=== PATIENT | female | born 1940 | race Caucasian/White ===

== ENCOUNTER 2022-10-26 15:15 | Emergency (ER) | payer MEDICARE, OTHER, SELFPAY ==
[2022-10-26 15:17] VITALS: BP 158/98; PULSE 63; RESP 18; TEMP 36.6; O2SAT 97; BMI 22.2
--- NOTE | 2022-10-26 15:41 | ECG_ITS ---
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
--- NOTE | 2022-10-26 15:42 | ED_ITS ---
HPI - General Adult General Chief complaint: Recheck/Abnormal Lab/Rx Stated complaint: Blood Pressure High Time Seen by Provider: 10/26/22 15:26 Source: patient Mode of arrival: walk-in Limitations: no limitations History of Present Illness HPI narrative: patient is an 82-year-old female who presents to the emergency department for the evaluation of elevated blood pressure readings at home. Patient denies any focal medical complaints, she does have minimal headache that she states she has daily which is not worse or different today. She states her blood pressure cuff read 200/100, she denies dizziness, chest pain, visual changes, shortness of breath. She states that she takes propranolol which is prescribed by her PCP and he recently told her to take the medication three times a day instead of twice although she states she does not like to take it three times a day because of the side effects of the beta megan. Related Data Home Medications Medication Instructions Recorded Confirmed clopidogrel 75 mg tablet 75 mg PO DAILY 10/26/22 10/26/22 dicyclomine 10 mg capsule 10 mg PO .every 4 hours 10/26/22 10/26/22 fexofenadine 180 mg tablet 180 mg PO Q24H 10/26/22 10/26/22 irbesartan 150 mg tablet 150 mg PO DAILY 10/26/22 10/26/22 meloxicam 15 mg tablet 15 mg PO DAILY 10/26/22 10/26/22 pregabalin 50 mg capsule mg 10/26/22 propranolol 60 mg capsule,24 60 mg PO Q24H 10/26/22 10/26/22 hr,extended release rosuvastatin 5 mg tablet 5 mg PO DAILY 10/26/22 10/26/22 Previous Rx's Medication Instructions Recorded amlodipine 10 mg tablet (Norvasc) 10 mg PO DAILY #14 tabs 10/26/22 Allergies Allergy/AdvReac Type Severity Reaction Status Date / Time Penicillins Allergy Intermediate Verified 10/26/22 15:28 Review of Systems ROS Constitutional Denies: fever or chills Ears, nose, mouth, and throat Denies: throat pain Cardiovascular Denies: chest pain Respiratory Denies: shortness of breath Gastrointestinal Denies: nausea or vomiting Genitourinary Denies: painful urination Musculoskeletal Denies: back pain Integumentary/Breast Denies: rash Neurological Reports: headache Exam Narrative Exam Narrative: Gen.: Awake, alert, in no distress Head: Normocephalic, atraumatic ENT: Moist mucous membranes Respiratory: No respiratory distress, lungs clear bilaterally Cardio: Regular rate and rhythm Extremities: Moves extremities equally, no pedal edema Psych: Normal mood and affect Neuro: No focal neuro deficit Skin: Warm, dry, intact Constitutional Vital Signs, click to edit/add: Last Vital Signs Temp 98 F 10/26/22 15:17 Pulse 63 10/26/22 15:17 Resp 18 10/26/22 15:17 BP 158/98 H 10/26/22 15:17 Pulse Ox 97 10/26/22 15:17 O2 Del Method Room Air 10/26/22 15:17 Course Vital Signs Vital signs: Vital Signs Temperature 98 F 10/26/22 15:17 Pulse Rate 63 10/26/22 15:17 Respiratory Rate 18 10/26/22 15:17 Blood Pressure 158/98 H 10/26/22 15:17 Pulse Oximetry 97 10/26/22 15:17 Oxygen Delivery Method Room Air 10/26/22 15:17 Temperature 98 F 10/26/22 15:17 Pulse Rate 63 10/26/22 15:17 Respiratory Rate 18 10/26/22 15:17 Blood Pressure 158/98 H 10/26/22 15:17 Pulse Oximetry 97 10/26/22 15:17 Oxygen Delivery Method Room Air 10/26/22 15:17 Medical Decision Making MDM Narrative Medical decision making narrative: EKG, lab studies within normal limits. Manual blood pressure is 158/97 initially and 172/84 on recheck. Patient with no focal medical complaints, I did discuss the case with Dr. kyle, the patient's PCP who recommended taking the propranolol twice a day with the addition of 10 mg Norvasc. Follow-up in the office for reevaluation and return to the Emergency Room if symptoms change or worsen. Medical Records Medical records reviewed: Yes I reviewed the patient's medical records Lab Data Lab results reviewed: Yes I reviewed the patient's lab results Labs: Lab Results 10/26/22 Range/Units 16:00 WBC 6.6 (4.0-11.0) 10^3/uL RBC 4.56 (4.20-5.40) 10^6/uL Hgb 12.6 (12.0-16.0) g/dL Hct 39.9 (36.0-48.0) % MCV 87.5 (81.0-99.0) fL MCH 27.6 (26.7-34.0) pg MCHC 31.6 (29.9-35.2) g/dL RDW 14.6 (11.0-15.0) % Plt Count 348 (150-450) 10^3/uL MPV 10.5 (9.5-13.5) fL Neut % (Auto) 58.8 (43.0-75.0) % Lymph % (Auto) 22.5 (20.5-60.0) % [place] % (Auto) 14.4 H (1.7-12.0) % Eos % (Auto) 3.3 (0.9-7.0) % Baso % (Auto) 0.8 (0.2-2.0) % Neut # (Auto) 3.9 (1.4-6.5) 10^3/uL Lymph # (Auto) 1.5 (1.2-3.8) 10^3/uL [place] # (Auto) 1.0 H (0.3-0.8) 10^3/uL Eos # (Auto) 0.2 (0.0-0.7) 10^3/uL Baso # (Auto) 0.1 (0.0-0.1) 10^3/uL Abs Immat Gran (auto) 0.01 (0.00-0.03) 10^3/uL Imm/Tot Granulo (auto) 0.2 (0.0-0.5) % Sodium 135 L (136-145) mmol/L Potassium 4.3 (3.5-5.1) mmol/L Chloride 101 (98-107) mmol/L Carbon Dioxide 28.1 (21.0-32.0) mmol/L Anion Gap 10.2 BUN 9.0 (7.0-18.0) mg/dL Creatinine 0.92 (0.55-1.02) mg/dL Est GFR ( Amer) >60 (>=60) Est GFR (Non-Af Amer) 59 L (>=60) BUN/Creatinine Ratio 9.8 Glucose 99 (74-106) mg/dL Calcium 9.2 (8.5-10.1) mg/dL ECG Data Attestation: I personally reviewed and interpreted this ECG as follows: (normal sinus rhythm at a rate of fifty-six, incomplete right bundle-branch block with no acute ST elevation or ectopy. EKG reviewed by attending physician) Discharge Plan Discharge Chief Complaint: Recheck/Abnormal Lab/Rx Clinical Impression: Hypertension Patient Disposition: Home, Self-Care Time of Disposition Decision: 16:32 Condition: Good Prescriptions / Home Meds: New amlodipine [Norvasc] 10 mg tablet 10 mg PO DAILY Qty: 14 0RF No Action clopidogrel 75 mg tablet 75 mg PO DAILY dicyclomine 10 mg capsule 10 mg PO .every 4 hours fexofenadine 180 mg tablet 180 mg PO Q24H irbesartan 150 mg tablet 150 mg PO DAILY meloxicam 15 mg tablet 15 mg PO DAILY pregabalin 50 mg capsule propranolol 60 mg capsule,extended release 24 hr 60 mg PO Q24H rosuvastatin 5 mg tablet 5 mg PO DAILY Instructions: How to Take a Blood Pressure Reading (ED), Hypertension (ED) Additional Instructions: Take your propranolol twice a day, take norvasc once a day Stand Alone Forms: Portal Instructions Referrals: LICHA KYLE [Primary Care Provider] - 1 week
[2022-10-26 16:25] LABS: Basophils Absolute Auto 0.1 10^3/uL (0.0-0.1); Basophils Percent Auto 0.8 % (0.2-2.0); Eosinophils Absolute Auto 0.2 10^3/uL (0.0-0.7); Eosinophils Percent Auto 3.3 % (0.9-7.0); Hematocrit 39.9 % (36.0-48.0); Hemoglobin 12.6 g/dL (12.0-16.0); Immature Granulocytes Abs Auto 0.01 10^3/uL (0.00-0.03); Immature Granulocytes Pct Auto 0.2 % (0.0-0.5); Lymphocytes Absolute Auto 1.5 10^3/uL (1.2-3.8); Lymphocytes Percent Auto 22.5 % (20.5-60.0); Mean Corpuscular HGB Conc 31.6 g/dL (29.9-35.2); Mean Corpuscular Hemoglobin 27.6 pg (26.7-34.0); Mean Corpuscular Volume 87.5 fL (81.0-99.0); Mean Platelet Volume 10.5 fL (9.5-13.5); Monocytes Percent Auto 14.4 % (1.7-12.0); Neutrophils Absolute Auto 3.9 10^3/uL (1.4-6.5); Neutrophils Percent Auto 58.8 % (43.0-75.0); Platelet Count 348 10^3/uL (150-450); Red Blood Count 4.56 10^6/uL (4.20-5.40); Red Cell Distribution Width 14.6 % (11.0-15.0); White Blood Count 6.6 10^3/uL (4.0-11.0)
[2022-10-26 16:29] LABS: Anion Gap 10.2; BUN Creatinine Ratio 9.8; Calcium 9.2 mg/dL (8.5-10.1); Carbon Dioxide 28.1 mmol/L (21.0-32.0); Chloride 101 mmol/L (98-107); Estimated GFR (African America >60 (>=60); Estimated GFR (Non-African Ame 59 (>=60); Glucose 99 mg/dL (74-106); Potassium 4.3 mmol/L (3.5-5.1); Sodium 135 mmol/L (136-145)
[2022-10-26 16:39] VITALS: BP 172/84
== END 2022-10-26 16:49 | disposition home or self-care (01) ==
PROVIDERS: Physician Assistant; Emergency Provider Emergency Medicine; PCP Family Medicine
DX: I10 Essential (primary) hypertension (principal); Z79.899 Other long term (current) drug therapy
CPT/HCPCS: 36415; 80048; 85025; 93005; 99284

== ENCOUNTER 2023-03-12 12:46 | Outpatient (OUT) | payer MEDICARE, OTHER, SELFPAY ==
[2023-03-12 13:43] LABS: Alanine Aminotransferase 15 U/L (14-59); Albumin Globulin Ratio 0.9; Albumin Level 3.7 g/dL (3.4-5.0); Alkaline Phosphatase 78 U/L (46-116); Anion Gap 12.5; Aspartate Amino Transferase 13 U/L (15-37); BUN Creatinine Ratio 9.5; Bilirubin Total 0.4 mg/dL (0.2-1.0); Calcium 8.8 mg/dL (8.5-10.1); Carbon Dioxide 29.5 mmol/L (21.0-32.0); Chloride 101 mmol/L (98-107); Estimated GFR (African America >60 (>=60); Estimated GFR (Non-African Ame >60 (>=60); Globulin 3.9 g/dL; Glucose 91 mg/dL (74-106); Sodium 139 mmol/L (136-145); Total Protein 7.6 g/dL (6.4-8.2)
[2023-03-12 13:45] LABS: Basophils Absolute Auto 0.1 10^3/uL (0.0-0.1); Basophils Percent Auto 0.9 % (0.2-2.0); Eosinophils Absolute Auto 0.2 10^3/uL (0.0-0.7); Eosinophils Percent Auto 1.7 % (0.9-7.0); Hematocrit 39.9 % (36.0-48.0); Hemoglobin 12.5 g/dL (12.0-16.0); Immature Granulocytes Abs Auto 0.02 10^3/uL (0.00-0.03); Immature Granulocytes Pct Auto 0.2 % (0.0-0.5); Lymphocytes Absolute Auto 2.2 10^3/uL (1.2-3.8); Lymphocytes Percent Auto 24.8 % (20.5-60.0); Mean Corpuscular HGB Conc 31.3 g/dL (29.9-35.2); Mean Corpuscular Volume 89.3 fL (81.0-99.0); Mean Platelet Volume 10.5 fL (9.5-13.5); Monocytes Absolute Auto 1.1 10^3/uL (0.3-0.8); Monocytes Percent Auto 12.2 % (1.7-12.0); Neutrophils Absolute Auto 5.4 10^3/uL (1.4-6.5); Neutrophils Percent Auto 60.2 % (43.0-75.0); Platelet Count 375 10^3/uL (150-450); Red Blood Count 4.47 10^6/uL (4.20-5.40); Red Cell Distribution Width 15.9 % (11.0-15.0)
== END 2023-03-12 12:47 | disposition home or self-care (01) ==
LOC: LAB 12:48
PROVIDERS: PCP Family Medicine; Visit Provider Internal Medicine
DX: D50.9 Iron deficiency anemia, unspecified (principal)
CPT/HCPCS: 36415; 80053; 85025

== ENCOUNTER 2023-04-17 08:42 | Outpatient (OUT) | payer MEDICARE, OTHER, SELFPAY ==
--- NOTE | 2023-04-17 | ECG_ITS ---
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
--- NOTE | 2023-04-17 08:44 | XR_ITS ---
The [address] [address] Patient Name: RANJAN LAMB MRN: [id number] date: 1940 Sex: F Assigned Patient Location: CARD Current Patient Location: CARD Accession/Order Number: [id number] Exam Date: 04/17/2023 08:51 Report Date: 04/17/2023 09:05 At the request of: NON-STAFF PHYSICIAN Procedure: XR chest 2V EXAM: XR chest 2V HISTORY: r53.83 preoperative COMPARISON: Chest study dated 09/07/2020 TECHNIQUE: PA and lateral views of the chest were obtained. FINDINGS: Heart and mediastinal contours are unremarkable in appearance. No acute infiltrate or consolidations are seen. No obvious pneumothorax. Bony structures appear grossly intact. XR/XR chest 2V IMPRESSION: No acute process seen in the chest. Electronically authenticated by: GONZALEZ GARRIDO Date: 04/17/2023 09:05
--- OUTSIDE RECORDS SUMMARY | 2023-04-17 08:54 | XMS_ITS | CCD ---
Author Name Unknown Address [address] [place] [address] Organization [facility] Care Team Providers Care Diamond Polisher Name Role Phone El Au Unavailable [phone] DO Brad Dean Primary Care Provider MD El Au Attending Provider ROE, DR Niya Dobbins Attending Unavailable ROE, DR Niya Dobbins Consulting Unavailable ROE, DR Niya Dobbins Admitting Unavailable DIANNE, DR HURT Primary Care Unavailable DIANNE, DR HURT Primary Care Unavailable BECKY, DR KAISER Attending Unavailable BECKY, DR KAISER Consulting Unavailable BECKY, DR KAISER Admitting Unavailable ZIEBER, DR JULIA Dobbins Consulting Unavailable Vale Red Unavailable BRAD DEAN Primary Care Unavailable Johan Romo MD Attending Unavailable Johan Romo MD Attending Unavailable BRAD DEAN Primary Care Unavailable BRAD DEAN Primary Care Unavailable Johan Romo MD Attending Unavailable BRAD DEAN Primary Care Unavailable Johan Romo MD Attending Unavailable Allergies Allergy Classification Reported Allergen(s) Allergy Type Date of Onset Reaction(s) Facility (8 sources) Iodine Drug Allergy 9 [facility] (7 sources) Pen[facility] Other (2 sources) Penicillins; Translations: [Penicillins] Allergy to substance 5 [facility] (1 source) Povidone-Iodine Drug Allergy 9 [facility] (1 source) soap Allergy to substance 9 [facility] (2 sources) Povidone-Iodine; Translations: [Betadine] Drug Allergy 5 [facility] (1 source) Penicillin; Translations: [penicillin] Drug Allergy [facility] Repository Medications Current Medications Medication Drug Class(es) Dates Sig (Normalized) Sig (Original) amLODIPine 10 mg oral tablet (1 source) Dihydropyridine Calcium Channel Arnol take 1 tablet by mouth every twenty-four hours amLODIPine Besylate 10 MG 1 tablet Orally Once a day Active Ascorbic Acid (7 sources) Vitamin C Vitamin C Active aspirin 81 mg chewable tablet (8 sources) Platelet Aggregation Inhibitor, Nonsteroidal Anti-inflammatory Drug Start: 09-03-2018 take 81 mg by mouth once daily Aspirin Active 81 MG PO Daily September 03, 2018 12:00am take 1 tablet by mouth once fan y Aspirin EC 81 MG 1 tablet Orally Once a day Not-Taking take 1 tablet by franco th every twenty-four hours Aspirin EC 81 MG 1 tablet Orally Once a day Active Aspirin 81 Activ e benzonatate 200 mg oral capsule (2 sources) Non-narcotic Antitussive Start: 11-13-2022 take 1 capsule by mouth three times daily as needed for cough Benzonatate 200 MG 1 capsule Orally Three times a day prn cough for 10 days Oct, Active cholecalciferol 0.025 mg oral tablet (1 source) Vitamin D Start: 09-03-2018 take 1 tablet by mouth once daily Cholecalciferol (Vitamin D3) (Vitamin D3) 1,000 unit Tablet Active 1000 UNIT PO Daily September 03, 2018 12:00am clopidogrel 75 mg oral tablet (7 sources) P2Y12 Platelet Inhibitor take 1 tablet by mouth every twenty-four hours Clopidogrel Bisulfate 75 MG 1 tablet Orally Once a day Active dicyclomine hydrochloride 10 mg oral capsule (7 sources) Anticholinergic Start: 09-08-2020 take 1 capsule by mouth every six hours Dicyclomine HCl 10 MG 1 capsules Orally qid for 30 day(s) August, Active doxycycline hyclate 100 mg oral capsule (2 sources) Tetracycline-class Drug Start: 11-13-2022 take 1 capsule by mouth every twelve hours Doxycycline Hyclate 100 MG 1 capsule Orally Twice a day for 7 days Oct, Active ferrous sulfate 325 mg oral tablet (6 sources) take 1 tablet by mouth every week Iron 325 (65 Fe) MG 1 tablet Orally weekly Active folic acid 0.4 mg / vitamin b12 0.5 mg oral tablet (1 source) Vitamin B12 Start: 09-03-2018 take 1 tablet by mouth once daily Vitamin E48-Xgesl Acid Active 1 TAB PO Daily September 03, 2018 12:00am hydrOXYzine hydrochloride 25 mg oral tablet (9 sources) Antihistamine Start: 09-03-2018 take 0.5 tablet by mouth once daily Hydroxyzine Hcl Active 0.5 TAB PO Daily September 03, 2018 12:00am Start: 09-03-2018 take 25 mg by mouth once daily Hydroxyzine Hcl Active 25 MG PO Daily September 03, 2018 12:00am take 1 tablet by franco th every eight hours hydrOXYzine HCl 25 MG 1 tablet as needed Orally every 8 hrs for 30 day(s) Active irbesartan 150 mg oral tablet (7 sources) Angiotensin 2 Receptor Ranol take 1 tablet by mouth every twenty-four hours Avapro 150 MG 1 tablet Orally Once a day Active Iron (1 source) Iron Active lactulose 667 mg/ml oral solution (1 source) Osmotic Laxative Start: 06-17-19 22 take 15 mL by mouth once daily Lactulose 10 GM/15ML 15 ml Orally Once a day for 30 day(s) Jun, Active lisinopril 5 mg oral tablet (1 source) Angiotensin Converting Enzyme Inhibitor Start: 11-27-19 19 take 10 mg by mouth once daily Lisinopril Active 10 MG PO Daily November 26, 2018 12:00am pregabalin 150 mg oral capsule (1 source) take 1 capsule by mouth every twenty-four hours Pregabalin 150 MG 1 capsule Orally Once a day for 30 Active Probiotic (3 sources) Probiotic as directed Active 24 hr propranolol hydrochloride 60 mg extended release oral capsule (8 sources) beta-Adrenergic Arnol Start: 09-04-19 19 take 60 mg by mouth once daily Propranolol Active 60 MG PO Daily September 03, 2018 12:00am take 1 tablet by franco th every twenty-four hours Propranolol HCl 60 MG 1 tablet on an empty stomach Orally Once a day for 30 day(s) Active rosuvastatin calcium 5 mg oral tablet (8 sources) HMG-CoA Reductase Inhibitor Start: 09-03-2018 take 5 mg by mouth once daily Rosuvastatin Active 5 MG PO Daily September 03, 2018 12:00am Vitamin B 12 250 MCG (7 sources) Vitamin B 12 250 MCG as directed Orally Active Vitamin D3 1000 UNIT (7 sources) take 1 tablet by mouth once daily Vitamin D3 1000 UNIT 1 tablet Orally Once a day for 30 day(s) Active Problems Active Problems Problem Classification Problem Date Documented Da te Episodic/Chronic Abdominal hernia (7 sources) Hiatal hernia; Translations: [Diaphragmatic hernia without obstruction or gangrene] Episodic Abdominal pain (8 sources) Unspecified abdominal pain; Translations: [Abdominal pain] Onset: 2 Resolved: 2 Episodic Cardiac and circulatory congenital anomalies (7 sources) 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; Translations: [Arteriovenous malformation of digestive system vessel] Chronic Deficiency and other anemia (7 sources) Iron deficiency anemia; Translations: [Iron deficiency anemia, unspecified] Episodic Deficiency and other anemia (9 sources) Iron deficiency anemia, unspecified; Translations: [IRON DEFICIENCY ANEMIA UNSPECIFIED] Onset: 2 Resolved: 2 Episodic Diverticulosis and diverticulitis (7 sources) Diverticular disease of colon; Translations: [Diverticulosis of intestine, part unspecified, without perforation or abscess without bleeding] Chronic Hemorrhoids (7 sources) Hemorrhoids; Translations: [Unspecified hemorrhoids] Episodic Nausea and vomiting (7 sources) Nausea and vomiting; Translations: [Nausea with vomiting, unspecified] Episodic Other disorders of stomach and duodenum (8 sources) Angiodysplasia of stomach; Translations: [Angiodysplasia of stomach and duodenum with bleeding] 12-03-2018 Episodic Other gastrointestinal disorders (7 sources) Constipation alternates with diarrhea; Translations: [Other specified symptoms and signs involving the digestive system and abdomen] Episodic Other gastrointestinal disorders (7 sources) Constipation; Translations: [Constipation, unspecified] Episodic Other gastrointestinal disorders (4 sources) Constipation, unspecified Onset: 2 Resolved: 2 Episodic Other lower respiratory disease (1 source) Unspecified acute lower respiratory infection Episodic Peripheral and visceral atherosclerosis (5 sources) 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, bilateral legs; Translations: [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, unspecified extremity] Onset: 2 Chronic Residual codes; unclassified (7 sources) Body mass index 20-24 - normal; Translations: [Body mass index (BMI) 21.0-21.9, adult] Episodic Past or Other Problems Problem Classification Problem Date Documented Da te Episodic/Chronic Unclassified (1 source) Suspected COVID-19 virus infection Z20.822 Results Test Name Value Interpretation Reference Range Facility Outside Recordson 12-05-2022 Outside Records [id number] [facility] Patient Handout [id number] 4#1.00OTGTIFF [facility] Patient Handout [id number] 4#1.00OTGTIFF [facility] COVID Quick Testingon 2022 Result Negative [employer] Other CBC AUTO DIFFon 05-09-2022 BASO # 0.1 103/ul Normal 0.0-0.1 [facility] Comment on above: Performed By: #### C BC #### [facility] [address] [place] [address] Dr. Sadaf Canela Basophils/100 WBC (Bld) 0.8 % Normal 0.2-2.0 [facility] Comment on above: Performed By: #### C BC #### [facility] [address] [place] [address] Dr. Sadaf Canela EO # 0.2 103/ul Normal 0.0-0.7 [facility] Comment on above: Performed By: #### C BC #### [facility] [address] [place] [address] Dr. Sadaf Canela Eosinophils/100 WBC (Bld) 2.1 % Normal 0.9-7.0 [facility] Comment on above: Performed By: #### C BC #### [facility] [address] [place] [address] Dr. Sadaf Canela Erythrocyte distribution width (RBC) [Ratio] 14.6 % Normal 11.0-15.0 [facility] Comment on above: Performed By: #### C BC #### [facility] [address] [place] [address] Dr. Sadaf Canela Hematocrit (Bld) [Volume fraction] 40.4 % Normal 36.0-48.0 [facility] Comment on above: Performed By: #### C BC #### [facility] [address] [place] [address] Dr. Sadaf Canela Hemoglobin (Bld) [Mass/Vol] 12.6 g/dL Normal 12.0-16.0 [facility] Comment on above: Performed By: #### C BC #### [facility] [address] [place] [address] Dr. Sadaf Canela IG # 0.01 10e3/ul Normal 0.00-0.03 [facility] Comment on above: Performed By: #### C BC #### [facility] [address] [place] [address] Dr. Sadaf Canela IG % 0.1 % Normal 0.0-0.5 [facility] Comment on above: Performed By: #### C BC #### [facility] [address] [place] [address] Dr. Sadaf Canela LYMPH # 1.6 103/ul Normal 1.2-3.8 [facility] Comment on above: Performed By: #### C BC #### [facility] [address] [place] [address] Dr. Sadaf Canela Lymphocytes/100 WBC (Bld) 22.2 % Normal 20.5-60.0 [facility] Comment on above: Performed By: #### C BC #### [facility] [address] [place] [address] Dr. Sadaf Canela MANUAL DIFF REQ NO Normal [facility] Comment on above: Performed By: #### C BC #### [facility] [address] [place] [address] Dr. Sadaf Canela MCH (RBC) [Entitic mass] 27.6 pg Normal 26.7-34.0 [facility] Comment on above: Performed By: #### C BC #### [facility] [address] [place] [address] Dr. Sadaf Canela MCHC (RBC) [Mass/Vol] 31.2 g/dL Normal 29.9-35.2 [facility] Comment on above: Performed By: #### C BC #### [facility] [address] [address] [address] Sadaf Canela MCV (RBC) [Entitic vol] 88.4 fL Normal 81.0-99.0 [facility] Comment on above: Performed By: #### C BC #### [facility] [address] [address] [address] Sadaf Canela MONO # 0.9 103/ul Critically high 0.3-0.8 [facility] Comment on above: Performed By: #### C BC #### [facility] [address] [address] [address] Sadaf Canela Monocytes/100 WBC (Bld) 12.4 % Critically high 1.7-12.0 [facility] Comment on above: Performed By: #### C BC #### [facility] [address] [place] [address] Dr. Sadaf Canela NEUT # 4.5 103/ul Normal 1.4-6.5 [facility] Comment on above: Performed By: #### C BC #### [facility] [address] [place] [address] Dr. Sadaf Canela Neutrophils/100 WBC (Bld) 62.4 % Normal 43.0-75.0 [facility] Comment on above: Performed By: #### C BC #### [facility] [address] [place] [address] Dr. Sadaf Canela Platelet mean volume (Bld) [Entitic vol] 10.2 fL Normal 9.5-13.5 [facility] Comment on above: Performed By: #### C BC #### [facility] [address] [place] [address] Dr. Sadaf Canela PLT 351 103/ul Normal 150-450 [facility] Comment on above: Performed By: #### C BC #### [facility] [address] [place] [address] Dr. Sadaf Canela RBC 4.57 106/ul Normal 4.20-5.40 [facility] Comment on above: Performed By: #### C BC #### [facility] [address] [address] [address] Sadaf Canela WBC 7.2 103/ul Normal 4.0-11.0 [facility] Comment on above: Performed By: #### C BC #### [facility] [address] [address] [address] Sadaf Canela FERRITINon 05-09-2022 Ferritin [Mass/Vol] 19.0 ng/mL Normal 8.0-252.0 [facility] Comment on above: Performed By: #### F ERR #### [facility] [address] [address] [address] Sadaf Canela Blood hemoglobin measurement (mass/volume)Ordered By: El Au on 12-20-2021 Hemoglobin (Bld) [Mass/Vol] 13.4 g/dL 11.8-15.4 [facility] Hematocrit Auto (Bld) [Volum e fraction]Ordered By: El Au on 12-20-2021 Hematocrit (Bld) [Volume fraction] 41.1 % 34.0-46.4 [facility] Hemoglobin and Hematocriton 12-20-2021 Hematocrit (Bld) [Volume fraction] 41.1 % Normal 34.0-46.4 [facility] Comment on above: Order Comment: Reaso n for Exam Iron deficiency anemia Result Comment: PERF ORMED BY: [place] [address] PATHOLOGIST MULTICULTURAL MANAGER HOLLIE BONNER M.D. Performed By: #### H H #### [facility] [address] [place] [address] Hemoglobin (Bld) [Mass/Vol] 13.4 g/dL Normal 11.8-15.4 [facility] Comment on above: Order Comment: Reaso n for Exam Iron deficiency anemia Performed By: #### H H #### [facility] [address] [place], [place] [id number] [facility] Hematocrit (Bld) [Volume fraction] 41.100 % Normal 34.0-46.4 % [employer] Other Hemoglobin (Bld) [Mass/Vol] 13.574392 g/dL Normal 11.8-15.4 g/dL [employer] Other CREATININEon 08-30-2021 Creatinine [Mass/Vol] 0.82 mg/dL Normal 0.55-1.02 [facility] Comment on above: Performed By: #### C HANNAH #### [facility] [address] [address] [address] Sadaf Canela EGFR-AF ARMENIAN >60 Normal >=60 [facility] Comment on above: Performed By: #### C HANNAH #### [facility] [address] [address] [address] Sadaf Canela EGFR-NON AF ARMENIAN >60 Normal >=60 [facility] Comment on above: Performed By: #### C HANNAH #### [facility] [address] [place] [address] Dr. Sadaf Canela CTA ABD MALENA WWO CON LE RUNO FFon 08-30-2021 CTA ABD MALENA WWO CON LE RUNOFF EXAMINATION: CTA ABD MALENA WWO CON LE RUNOFF HISTORY: Intermittent claudication of bilateral lower limbs co-occurrent and due to atherosclerosis; painful, cold legs COMPARISON: CT abdomen pelvis with contrast 09/07/2020 TECHNIQUE: After obtaining the patient's consent, CT images of the abdomen, pelvis, and lower extremities were obtained without and with non-ionic intravenous contrast material. Multi-planar reformatted/3-D images were created to optimize visualization of vascular anatomy. Dose reduction techniques were achieved by using automated exposure control and/or adjustment of mA and/or kV according to patient size and/or use of iterative reconstruction technique. FINDINGS: AORTA: Moderate atherosclerotic disease of the distal aorta without significant narrowing. No aneurysm or dissection. Mild atherosclerotic narrowing of celiac axis and superior mesenteric arteries at their origins. Right renal artery mild atherosclerotic narrowing. Left renal artery marked narrowing, possibly cause of renal atrophy. ILIAC: Moderate atherosclerotic disease of common iliac arteries bilaterally. No aneurysm or dissection. RIGHT LEG: Mild luminal narrowing and multifocal mild atherosclerotic disease. No significant stenosis or occlusion. LEFT LEG: Widely patent endovascular stent from mid femoral to popliteal artery. Overall mild narrowing of the vessels and scattered mild atherosclerotic disease. No significant stenosis or occlusion. LUNG BASES: No visible pulmonary or pleural disease. LIVER: No enlargement, atrophy, abnormal density, or significant focal lesion. BILIARY: A few tiny granular calcifications within noninflamed gallbladder. PANCREAS: No lesion, fluid collection, ductal dilatation. SPLEEN: No enlargement or focal lesion. ADRENALS: No mass or enlargement. KIDNEYS: Left renal atrophy with marked cortical thinning. Unremarkable right kidney and bilateral ureters. BOWEL/MESENTERY: Large hiatal hernia. Diverticulosis of distal: Without acute inflammatory changes. No visible mass, obstruction, or bowel wall thickening. RETROPERITONEUM: No mass or adenopathy. ABDOMINAL WALL: No mass or hernia. URINARY BLADDER: No visible focal wall thickening, lesion, or calculus. PELVIC NODES: No adenopathy. PELVIC ORGANS: Hysterectomy. BONES: Stable mild-moderate compression fracture of L2 which appears to be chronic. OTHER: IMPRESSION: 1. Moderate atherosclerotic disease of the distal aorta and common iliac arteries with overall mild narrowing, but no marked stenosis. 2. Mild dorsal narrowing throughout the lower extremities, but only mild atherosclerotic disease. 3. Widely patent endovascular stent within left leg stenting from mid femoral artery to popliteal artery. 4. No occlusion or appreciable area of marked stenosis. Electronically authenticated by: JULIA ECHEVARRIA Date: 2021-08-30 15:07 Normal [facility] Complete Blood Count Auto Di ffon 06-16-2021 Basophils (Bld) [#/Vol] 0.1 10*3/uL Normal 0.0-0.2 [employer] Other Comment on above: Order Comment: Reaso n for Exam Iron deficiency anemia Result Comment: PERF ORMED BY: [place] [address] PATHOLOGIST MULTICULTURAL MANAGER HOLLIE BONNER M.D. Performed By: #### C BC #### [place] [address] [place] Basophils/100 WBC (Bld) 1.3 % Normal . [employer] Other Comment on above: Order Comment: Reaso n for Exam Iron deficiency anemia Performed By: #### C BC #### [place] [address] [place] Eosinophils (Bld) [#/Vol] 0.2 10*3/uL Normal 0.0-0.45 [employer] Other Comment on above: Order Comment: Reaso n for Exam Iron deficiency anemia Performed By: #### C BC #### [facility] [address] [place] [address] [place] Eosinophils/100 WBC (Bld) 1.7 % Normal . [employer] Other Comment on above: Order Comment: Reaso n for Exam Iron deficiency anemia Performed By: #### C BC #### [address] Erythrocyte distribution width (RBC) [Ratio] 14.5 % Normal 11.9-15.3 [employer] Other Comment on above: Order Comment: Reaso n for Exam Iron deficiency anemia Performed By: #### C BC #### [address] Hematocrit (Bld) [Volume fraction] 41.8 % Normal 34.0-46.4 [employer] Other Comment on above: Order Comment: Reaso n for Exam Iron deficiency anemia Performed By: #### C BC #### [address] Hemoglobin (Bld) [Mass/Vol] 13.6 g/dL Normal 11.8-15.4 [employer] Other Comment on above: Order Comment: Reaso n for Exam Iron deficiency anemia Performed By: #### C BC #### [place] [id number] [place] Lymphocytes (Bld) [#/Vol] 2.1 10*3/uL Normal 1.00-4.8 [employer] Other Comment on above: Order Comment: Reaso n for Exam Iron deficiency anemia Performed By: #### C BC #### [place] [id number] [place] Lymphocytes/100 WBC (Bld) 23.5 % Normal . [employer] Other Comment on above: Order Comment: Reaso n for Exam Iron deficiency anemia Performed By: #### C BC #### [address] MCH (RBC) [Entitic mass] 28.9 pg Normal 24.7-34.3 [employer] Other Comment on above: Order Comment: Reaso n for Exam Iron deficiency anemia Performed By: #### C BC #### [address] MCV (RBC) [Entitic vol] 88.9 fL Normal 80-100 [facility] [employer] Other Comment on above: Order Comment: Reaso n for Exam Iron deficiency anemia Performed By: #### C BC #### [address] Mean Corpuscular HGB Conc 32.5 g/dL Normal 32.0-35.0 [facility] Comment on above: Order Comment: Reaso n for Exam Iron deficiency anemia Performed By: #### C BC #### [address] Monocytes (Bld) [#/Vol] 1.1 10*3/uL High 0.0-0.8 [facility] [employer] Other Comment on above: Order Comment: Reaso n for Exam Iron deficiency anemia Performed By: #### C BC #### [place] [address] [place] Monocytes/100 WBC (Bld) 12.1 % Normal . [facility] [employer] Other Comment on above: Order Comment: Reaso n for Exam Iron deficiency anemia Performed By: #### C BC #### [address] Neutrophils (Bld) [#/Vol] 5.5 10*3/uL Normal 1.8-7.7 [employer] Other Comment on above: Order Comment: Reaso n for Exam Iron deficiency anemia Performed By: #### C BC #### [facility] [address] [id number] [place] Neutrophils/100 WBC (Bld) 61.4 % Normal . [employer] Other Comment on above: Order Comment: Reaso n for Exam Iron deficiency anemia Performed By: #### C BC #### [place] [id number] [place] Nucleated RBC/100 WBC (Bld) [Ratio] 0.0 % Normal 0-0.5 [facility] Comment on above: Order Comment: Reaso n for Exam Iron deficiency anemia Performed By: #### C BC #### [address] Platelet mean volume (Bld) [Entitic vol] 7.9 fL Normal 6.3-10.7 [employer] Other Comment on above: Order Comment: Reaso n for Exam Iron deficiency anemia Performed By: #### C BC #### [place] [id number] [place] Platelets (Bld) [#/Vol] 337 10*3/uL Normal 150-450 [employer] Other Comment on above: Order Comment: Reaso n for Exam Iron deficiency anemia Performed By: #### C BC #### [place] [address] [place] RBC (Bld) [#/Vol] 4.71 10*6/uL Normal 3.60-5.00 [employer] Other Comment on above: Order Comment: Reaso n for Exam Iron deficiency anemia Performed By: #### C BC #### [place] [id number] [place] WBC (Bld) [#/Vol] 8.9 10*3/uL Normal 4.5-11.0 [employer] Other Comment on above: Order Comment: Reaso n for Exam Iron deficiency anemia Performed By: #### C BC #### [facility] [address] MCH (RBC) [Entitic mass] 32.5 pg 32.0-35.0 [employer] Other Complete Blood Count Auto Diff 8.9 4.5-11.0 [employer] Other Complete Blood Count Auto Diff 0.0 0-0.5 [employer] Other Vital Signs Date Time Vital Sign Value Performing Clinician Facility 03-01-2023 14:45-0500 Body height 151.13 cm [facility] Other [facility] [employer] Other 03-01-2023 14:45-0500 Body mass index (BMI) [Ratio] 25.62 kg/m2 [facility] Other [facility] Other 03-01-2023 14:45-0500 Body weight 58.51 kg El Valdezack Other [facility] Other 11-13-2022 14:55-0400 Body height 151.13 cm Vale Red Other [facility] Other 11-13-2022 14:55-0400 Body mass index (BMI) [Ratio] 25.74 kg/m2 Vale Red Other [facility] Other 11-13-2022 14:55-0400 Body temperature 96.8 [degF] Vale Red Other [facility] Other 11-13-2022 14:55-0400 Body weight 58.79 kg Vale Red Other [facility] Other 11-13-2022 14:55-0400 Diastolic blood pressure 59 mm[Hg] Vale Lamaley Other [facility] Other 11-13-2022 14:55-0400 Respiratory rate 18 /min Vale Lamaley Other [facility] Other 11-13-2022 14:55-0400 SaO2% (BldA) [Mass fraction] 98 % Vale aLmaley Other [facility] Other 11-13-2022 14:55-0400 Systolic blood pressure 155 mm[Hg] Vale Neda Other [facility] Other 06-20-2022 13:00-0500 Body height 151.13 cm El Roe Other [facility] Other 06-20-2022 13:00-0500 Body mass index (BMI) [Ratio] 22.84 kg/m2 Le Roe Other [facility] Other 06-20-2022 13:00-0500 Body weight 52.16 kg El Au Other [facility] Other 06-20-2022 13:00-0500 Diastolic blood pressure 103 mm[Hg] El Au Other [facility] Other 06-20-2022 13:00-0500 Systolic blood pressure 208 mm[Hg] El Au Other [facility] Other 12-20-2021 14:00-0400 Body height 151.13 cm El Au Other [facility] Other 12-20-2021 14:00-0400 Body mass index (BMI) [Ratio] 24.62 kg/m2 El Roe Other [facility] Other 12-20-2021 14:00-0400 Body weight 56.25 kg El Valdezack Other [facility] Other 12-20-2021 14:00-0400 Diastolic blood pressure 83 mm[Hg] El Roe Other [facility] Other 12-20-2021 14:00-0400 Systolic blood pressure 159 mm[Hg] El Roe Other [facility] Other 06-16-2021 14:00-0500 Body height 151.13 cm El Roe Other [facility] Other 06-16-2021 14:00-0500 Body mass index (BMI) [Ratio] 26.61 kg/m2 El Roe Other [facility] Other 06-16-2021 14:00-0500 Body weight 60.78 kg El Valdezack Other [facility] Other Encounters Encounter Date Encounter Type Care Provider Facility Start: 03-05-2023 End: 03-06-2023 ambulatory BRAD P HOUSE Facility:[facility] Start: 03-01-2023 End: 03-01-2023 ambulatory El Roe Other [facility] Other Start: 03-01-2023 Office outpatient visit 15 minutes El Au [facility] Start: 01-17-2023 End: 01-18-2023 ambulatory BRAD P HOUSE Facility:[facility] Start: 12-11-2022 End: 12-12-2022 ambulatory BRAD P HOUSE Facility:[facility] Start: 11-30-2022 End: 12-01-2022 ambulatory Johan Romo MD Facility:[facility] Start: 11-13-2022 End: 11-13-2022 ambulatory Vale Red Other [facility] Other Start: 11-13-2022 Office outpatient visit 15 minutes Vale Red [facility] Start: 06-20-2022 End: 06-20-2022 ambulatory El Au Other [facility] Other Start: 06-20-2022 Office outpatient visit 15 minutes El Au [facility] Start: 05-17-2022 End: 05-17-2022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
[2023-04-17 09:16] LABS: Basophils Absolute Auto 0.1 10^3/uL (0.0-0.1); Eosinophils Absolute Auto 0.1 10^3/uL (0.0-0.7); Eosinophils Percent Auto 1.7 % (0.9-7.0); Hematocrit 38.7 % (36.0-48.0); Hemoglobin 11.8 g/dL (12.0-16.0); Immature Granulocytes Abs Auto 0.01 10^3/uL (0.00-0.03); Immature Granulocytes Pct Auto 0.1 % (0.0-0.5); Lymphocytes Absolute Auto 1.6 10^3/uL (1.2-3.8); Mean Corpuscular HGB Conc 30.5 g/dL (29.9-35.2); Mean Corpuscular Volume 91.9 fL (81.0-99.0); Mean Platelet Volume 10.2 fL (9.5-13.5); Monocytes Absolute Auto 0.9 10^3/uL (0.3-0.8); Monocytes Percent Auto 13.2 % (1.7-12.0); Neutrophils Absolute Auto 4.3 10^3/uL (1.4-6.5); Platelet Count 330 10^3/uL (150-450); Red Blood Count 4.21 10^6/uL (4.20-5.40); Red Cell Distribution Width 14.9 % (11.0-15.0); White Blood Count 7.1 10^3/uL (4.0-11.0)
[2023-04-17 09:50] LABS: Partial Thromboplastin Time 24.5 sec (22.3-36.2); Prothrombin Time 9.8 sec (9.0-11.6)
[2023-04-17 09:51] LABS: INR <0.93
[2023-04-17 15:42] LABS: Alanine Aminotransferase 20 U/L (14-59); Albumin Globulin Ratio 0.9; Albumin Level 3.4 g/dL (3.4-5.0); Alkaline Phosphatase 80 U/L (46-116); Anion Gap 12.3; Aspartate Amino Transferase 19 U/L (15-37); Bilirubin Total 0.3 mg/dL (0.2-1.0); Calcium 9.4 mg/dL (8.5-10.1); Chloride 104 mmol/L (98-107); Estimated GFR (African America >60 (>=60); Estimated GFR (Non-African Ame >60 (>=60); Globulin 3.9 g/dL; Glucose 84 mg/dL (74-106); Potassium 4.3 mmol/L (3.5-5.1); Sodium 140 mmol/L (136-145); Total Protein 7.3 g/dL (6.4-8.2)
== END 2023-04-17 08:43 | disposition home or self-care (01) ==
LOC: CARD 08:42
PROVIDERS: PCP Family Medicine
DX: I73.9 Peripheral vascular disease, unspecified (principal); R53.83 Other fatigue; I87.1 Compression of vein; M79.605 Pain in left leg; M79.604 Pain in right leg; R06.02 Shortness of breath
CPT/HCPCS: 36415; 71046; 80053; 85025; 85610; 85730; 93005

== ENCOUNTER 2023-05-31 13:08 | Outpatient (OUT) | payer MEDICARE, OTHER, SELFPAY ==
--- OUTSIDE RECORDS SUMMARY | 2023-05-31 13:19 | XMS_ITS | CCD ---
Author Name Unknown Address [address] [facility] [address] [address] [place] [address] Organization [facility] Care Team Providers Care Underwriting Service Representative Name Role Phone El Au Unavailable [phone] DO Brad Dean Primary Care Provider MD El Au Attending Provider [phone] ROE, DR Niya Dobbins Attending Unavailable ROE, [...] Attending Unavailable Johan Romo MD Attending Unavailable DIANNE, BRAD Cui Primary Care Unavailable BRAD DEAN Primary Care Unavailable Johan Romo MD Attending Unavailable DIANNE, BRAD Cui Primary Care Unavailable Johan Romo MD Attending Unavailable BRAD DEAN Primary Care Unavailable Johan Romo MD Attending Unavailable Allergies Allergy Classification Reported Allergen(s) Allergy Type Date of Onset Reaction(s) Facility (8 sources) Iodine Drug Allergy 9 [facility] (7 sources) Penicillin G Drug Allergy [facility] [place] [facility] Other (2 sources) Penicillins; Translations: [Penicillins] Allergy to substance 5 [facility] (1 source) Povidone-Iodine Drug Allergy 9 [facility] (1 source) soap Allergy to substance 9 [facility] (2 sources) Povidone-Iodine; Translations: [Betadine] Drug Allergy 5 [facility] (1 source) Penicillin; Translations: [penicillin] Drug Allergy [facility] Repository Medications Current Medications Medication Drug Class(es) [...] 1 tablet by mouth once daily Vitamin [id number] Acid Active 1 TAB PO Daily September [...] oral tablet (7 sources) Angiotensin 2 Receptor Arnol take 1 tablet by mouth every [...] and visceral atherosclerosis (5 sources) Atherosclerosis of [place] arteries of extremities with intermittent claudication, bilateral legs; Translations: [Atherosclerosis of [place] arteries of extremities with intermittent claudication, unspecified extremity] Onset: 2 Chronic Residual codes; unclassified (7 sources) Body mass index 20-24 - normal; Translations: [Body mass index (BMI) 21.0-21.9, adult] Episodic Past or Other Problems Problem Classification Problem Date Documented Da te Episodic/Chronic Unclassified (1 source) Suspected COVID-19 virus infection Z20.822 Results Test Name Value Interpretation Reference Range Facility Outside Recordson 12-05-2022 Outside Records [id number] 6#1.00OTGTIFF [facility] Patient Handouton 12-05-2022 Patient Handout [id number] 4#1.00OTGTIFF [facility] Patient Handout [id number] [facility] 2022 Result Negative [employer] Other CBC AUTO DIFFon 05-09-2022 BASO # 0.1 103/ul Normal 0.0-0.1 [facility] Comment on above: Performed By: #### C BC #### [facility] [address] [place] [address] Dr. Sadaf Canela Basophils/100 WBC (Bld) 0.8 % Normal 0.2-2.0 [facility] Comment on above: Performed By: #### C BC #### [facility] [address] [place] [address] Dr. Sadaf Canela EO # 0.2 103/ul Normal 0.0-0.7 [facility] Comment on above: Performed By: #### C BC #### [facility] [address] [address] [address] Sadaf Canela Eosinophils/100 WBC (Bld) 2.1 % Normal 0.9-7.0 [facility] Comment on above: Performed By: #### C BC #### [facility] [address] [address] [address] Sadaf Canela Erythrocyte distribution width (RBC) [Ratio] 14.6 % Normal 11.0-15.0 [facility] Comment on above: Performed By: #### C BC #### [facility] [address] [place] [address] Dr. Sadaf Canela Hematocrit (Bld) [Volume fraction] 40.4 % Normal 36.0-48.0 [facility] Comment on above: Performed By: #### C BC #### [facility] [address] [place] [address] Dr. Sadaf Canela Hemoglobin (Bld) [Mass/Vol] 12.6 g/dL Normal 12.0-16.0 [facility] Comment on above: Performed By: #### C BC #### [facility] [address] [place] [address] Dr. Sadaf Canela IG # 0.01 10e3/ul Normal 0.00-0.03 [facility] Comment on above: Performed By: #### C BC #### [facility] [address] [place] [address] Dr. Sadaf Canela IG % 0.1 % Normal 0.0-0.5 [facility] Comment on above: Performed By: #### C BC #### [facility] [address] [place] [address] Dr. Sadaf Canela LYMPH # 1.6 103/ul Normal 1.2-3.8 [facility] Comment on above: Performed By: #### C BC #### [facility] [address] [place] [address] Dr. Sadaf Canela Lymphocytes/100 WBC (Bld) 22.2 % Normal 20.5-60.0 [facility] Comment on above: Performed By: #### C BC #### [facility] [address] [place] [address] Dr. Sadaf Canela MANUAL DIFF REQ NO Normal [facility] Comment on above: Performed By: #### C BC #### [facility] [address] [place] [address] Dr. Sadaf Canela MCH (RBC) [Entitic mass] 27.6 pg Normal 26.7-34.0 [facility] Comment on above: Performed By: #### C BC #### [facility] [address] [place] [address] Dr. Sadaf Canela MCHC (RBC) [Mass/Vol] 31.2 g/dL Normal 29.9-35.2 [facility] Comment on above: Performed By: #### C BC #### [facility] [address] [address] [address] Sadaf Canela MCV (RBC) [Entitic vol] 88.4 fL Normal 81.0-99.0 [facility] Comment on above: Performed By: #### C BC #### [facility] [address] [address] [address] Sadaf Canela MONO # 0.9 103/ul Critically high 0.3-0.8 [facility] Comment on above: Performed By: #### C BC #### [facility] [address] [place] [address] Dr. Sadaf Canela Monocytes/100 WBC (Bld) 12.4 % Critically high 1.7-12.0 [facility] Comment on above: Performed By: #### C BC #### [facility] [address] [address] [address] Sadaf Canela NEUT # 4.5 103/ul Normal 1.4-6.5 [facility] Comment on above: Performed By: #### C BC #### [facility] [address] [place] [address] Dr. Sadaf Canela Neutrophils/100 WBC (Bld) 62.4 % Normal 43.0-75.0 [facility] Comment on above: Performed By: #### C BC #### [facility] [address] [address] [address] Sadaf Canela Platelet mean volume (Bld) [Entitic vol] 10.2 fL Normal 9.5-13.5 [facility] Comment on above: Performed By: #### C BC #### [facility] [address] [place] [address] Dr. Sadaf Canela PLT 351 103/ul Normal 150-450 [facility] Comment on above: Performed By: #### C BC #### [facility] [address] [place] [address] Dr. Sadaf Canela RBC 4.57 106/ul Normal 4.20-5.40 [facility] Comment on above: Performed By: #### C BC #### [facility] [address] [address] [address] Sadaf Canela WBC 7.2 103/ul Normal 4.0-11.0 [facility] Comment on above: Performed By: #### C BC #### [facility] [address] [address] [address] Sadaf Canela FERRITINon 05-09-2022 Ferritin [Mass/Vol] 19.0 ng/mL Normal 8.0-252.0 [facility] Comment on above: Performed By: #### F ERR #### [facility] [address] [place] [address] Dr. Sadaf Canela Blood hemoglobin measurement (mass/volume)Ordered By: El Au on 12-20-2021 Hemoglobin (Bld) [Mass/Vol] 13.4 g/dL 11.8-15.4 [facility] Hematocrit Auto (Bld) [Volum e fraction]Ordered By: El Au on 12-20-2021 Hematocrit (Bld) [Volume fraction] 41.1 % 34.0-46.4 [facility] Hemoglobin and Hematocriton 12-20-2021 Hematocrit (Bld) [Volume fraction] 41.1 % Normal 34.0-46.4 [facility] Comment on above: Order Comment: Reaso n for Exam Iron deficiency anemia Result Comment: PERF ORMED BY: [place] [address] PATHOLOGIST INDEPENDENT [employer]M MAKER HOLLIE BONNER M.D. Performed By: #### H H #### [facility] [address] Hemoglobin (Bld) [Mass/Vol] 13.4 g/dL Normal 11.8-15.4 [facility] Comment on above: Order Comment: Reaso n for Exam Iron deficiency anemia Performed By: #### H H #### [facility] [address] Hematocrit (Bld) [Volume fraction] 41.100 % Normal 34.0-46.4 % [facility] [employer] Other Hemoglobin (Bld) [Mass/Vol] 13.640786 g/dL Normal 11.8-15.4 g/dL [employer] Other CREATININEon 08-30-2021 Creatinine [Mass/Vol] 0.82 mg/dL Normal 0.55-1.02 [facility] Comment on above: Performed By: #### C HANNAH #### [facility] [address] [place] [address] Dr. Sadaf Canela EGFR-AF HUNGARIAN >60 Normal >=60 [facility] Comment on above: Performed By: #### C HANNAH #### [facility] [address] [place] [address] Dr. Sadaf Canela EGFR-NON AF HUNGARIAN >60 Normal >=60 [facility] Comment on above: Performed By: #### C HANNAH #### [facility] [address] [place] [address] Dr. Sadaf Canela CTA ABD MALENA WWO [...] by: JULIA ECHEVARRIA Date: 2021-08-30 15:07 Normal [facility] Complete Blood Count Auto Di ffon 06-16-2021 Basophils (Bld) [#/Vol] 0.1 10*3/uL Normal 0.0-0.2 [employer] Other Comment on above: Order Comment: Reaso n for Exam Iron deficiency anemia Result Comment: PERF ORMED BY: [place] [address] PATHOLOGIST INDEPENDENT [employer]M MAKER HOLLIE BONNER M.D. Performed By: #### C BC #### [address] Basophils/100 WBC (Bld) 1.3 % Normal . [employer] Other Comment on above: Order Comment: Reaso n for Exam Iron deficiency anemia Performed By: #### C BC #### [address] Eosinophils (Bld) [#/Vol] 0.2 10*3/uL Normal 0.0-0.45 [employer] Other Comment on above: Order Comment: Reaso n for Exam Iron deficiency anemia Performed By: #### C BC #### [place] [address] [place] Eosinophils/100 WBC (Bld) 1.7 % Normal . [employer] Other Comment on above: Order Comment: Reaso n for Exam Iron deficiency anemia Performed By: #### C BC #### [address] Erythrocyte distribution width (RBC) [Ratio] 14.5 % Normal 11.9-15.3 [employer] Other Comment on above: Order Comment: Reaso n for Exam Iron deficiency anemia Performed By: #### C BC #### [address] Hematocrit (Bld) [Volume fraction] 41.8 % Normal 34.0-46.4 [employer] Other Comment on above: Order Comment: Reaso n for Exam Iron deficiency anemia Performed By: #### C BC #### [address] Hemoglobin (Bld) [Mass/Vol] 13.6 g/dL Normal 11.8-15.4 [employer] Other Comment on above: Order Comment: Reaso n for Exam Iron deficiency anemia Performed By: #### C BC #### [address] Lymphocytes (Bld) [#/Vol] 2.1 10*3/uL Normal 1.00-4.8 [employer] Other Comment on above: Order Comment: Reaso n for Exam Iron deficiency anemia Performed By: #### C BC #### [place] [id number] [place] Lymphocytes/100 WBC (Bld) 23.5 % Normal . [employer] Other Comment on above: Order Comment: Reaso n for Exam Iron deficiency anemia Performed By: #### C BC #### [address] MCH (RBC) [Entitic mass] 28.9 pg Normal 24.7-34.3 [employer] Other Comment on above: Order Comment: Reaso n for Exam Iron deficiency anemia Performed By: #### C BC #### [address] MCV (RBC) [Entitic vol] 88.9 fL Normal 80-100 [employer] Other Comment on above: Order Comment: Reaso n for Exam Iron deficiency anemia Performed By: #### C BC #### [address] Mean Corpuscular HGB Conc 32.5 g/dL Normal 32.0-35.0 [facility] Comment on above: Order Comment: Reaso n for Exam Iron deficiency anemia Performed By: #### C BC #### [address] Monocytes (Bld) [#/Vol] 1.1 10*3/uL High 0.0-0.8 [employer] [facility] [employer] Other Comment on above: Order Comment: Reaso n for Exam Iron deficiency anemia Performed By: #### C BC #### [address] Monocytes/100 WBC (Bld) 12.1 % Normal . [employer] Other Comment on above: Order Comment: Reaso n for Exam Iron deficiency anemia Performed By: #### C BC #### [address] Neutrophils (Bld) [#/Vol] 5.5 10*3/uL Normal 1.8-7.7 [employer] Other Comment on above: Order Comment: Reaso n for Exam Iron deficiency anemia Performed By: #### C BC #### [facility] [address] [id number] [place] Neutrophils/100 WBC (Bld) 61.4 % Normal . [employer] Other Comment on above: Order Comment: Reaso n for Exam Iron deficiency anemia Performed By: #### C BC #### [facility] [address] [id number] [place] Nucleated RBC/100 WBC (Bld) [Ratio] 0.0 % Normal 0-0.5 [facility] Comment on above: Order Comment: Reaso n for Exam Iron deficiency anemia Performed By: #### C BC #### [address] Platelet mean volume (Bld) [Entitic vol] 7.9 fL Normal 6.3-10.7 [employer] [facility] [employer] Other Comment on above: Order Comment: Reaso n for Exam Iron deficiency anemia Performed By: #### C BC #### [place] [id number] [place] Platelets (Bld) [#/Vol] 337 10*3/uL Normal 150-450 [employer] Other Comment on above: Order Comment: Reaso n for Exam Iron deficiency anemia Performed By: #### C BC #### [facility] [address] [place] [address] [place] RBC (Bld) [#/Vol] 4.71 10*6/uL Normal 3.60-5.00 [employer] Other Comment on above: Order Comment: Reaso n for Exam Iron deficiency anemia Performed By: #### C BC #### [address] [place] [id number] [place] WBC (Bld) [#/Vol] 8.9 10*3/uL Normal 4.5-11.0 [employer] Other Comment on above: Order Comment: Reaso n for Exam Iron deficiency anemia Performed By: #### C BC #### [facility] [address] MCH (RBC) [Entitic mass] 32.5 pg 32.0-35.0 [employer] Other Complete Blood Count Auto Diff 8.9 4.5-11.0 [employer] Other Complete Blood Count Auto Diff 0.0 0-0.5 [employer] Other Vital Signs Date Time Vital Sign Value Performing Clinician Facility 03-01-2023 14:45-0500 Body height 151.13 cm El Au Other [employer] Other 03-01-2023 14:45-0500 Body mass index (BMI) [Ratio] 25.62 kg/m2 El Au Other [employer] Other 03-01-2023 14:45-0500 Body weight 58.51 kg El Au Other [employer] Other 11-13-2022 14:55-0400 Body height 151.13 cm Vale Red Other [employer] Other 11-13-2022 14:55-0400 Body mass index (BMI) [Ratio] 25.74 kg/m2 Vale Red Other [employer] Other 11-13-2022 14:55-0400 Body temperature 96.8 [degF] Vale Red Other [employer] Other 11-13-2022 14:55-0400 Body weight 58.79 kg Vale Red Other [employer] Other 11-13-2022 14:55-0400 Diastolic blood pressure 59 mm[Hg] Vale Lamaley Other [employer] Other 11-13-2022 14:55-0400 Respiratory rate 18 /min Vale Lamaley Other [employer] Other 11-13-2022 14:55-0400 SaO2% (BldA) [Mass fraction] 98 % Vale Lamaley Other [employer] Other 11-13-2022 14:55-0400 Systolic blood pressure 155 mm[Hg] Vale Neda Other [employer] Other 06-20-2022 13:00-0500 Body height 151.13 cm El Au Other [employer] Other 06-20-2022 13:00-0500 Body mass index (BMI) [Ratio] 22.84 kg/m2 El Au Other [employer] Other 06-20-2022 13:00-0500 Body weight 52.16 kg El Au Other [employer] Other 06-20-2022 13:00-0500 Diastolic blood pressure 103 mm[Hg] El Au Other [employer] Other 06-20-2022 13:00-0500 Systolic blood pressure 208 mm[Hg] El Au Other [employer] Other 12-20-2021 14:00-0400 Body height 151.13 cm El Au Other [employer] Other 12-20-2021 14:00-0400 Body mass index (BMI) [Ratio] 24.62 kg/m2 El Au Other [employer] Other 12-20-2021 14:00-0400 Body weight 56.25 kg El Roe Other [employer] Other 12-20-2021 14:00-0400 Diastolic blood pressure 83 mm[Hg] El Au Other [employer] Other 12-20-2021 14:00-0400 Systolic blood pressure 159 mm[Hg] El Au Other [employer] Other 06-16-2021 14:00-0500 Body height 151.13 cm El Au Other [employer] Other 06-16-2021 14:00-0500 Body mass index (BMI) [Ratio] 26.61 kg/m2 El Au Other [employer] Other 06-16-2021 14:00-0500 Body weight 60.78 kg El Au Other [employer] Other Encounters Encounter Date Encounter Type Care Provider Facility Start: 05-22-2023 End: 05-23-2023 ambulatory Johan Romo MD Facility:[facility] Start: 03-05-2023 End: 03-06-2023 ambulatory BRAD DEAN Facility:[facility] Start: 03-01-2023 End: 03-01-2023 ambulatory El Au Other [employer] Other Start: 03-01-2023 Office outpatient visit 15 minutes [facility] Start: 01-17-2023 End: 01-18-2023 ambulatory BRAD DEAN Facility:[facility] Start: 12-11-2022 End: 12-12-2022 ambulatory BRAD P HOUSE Facility:[facility] Start: 11-30-2022 End: 12-01-2022 ambulatory BRAD P DIANNE Facility:[facility] Start: 11-13-2022 End: 11-13-2022 ambulatory Vale Red Other [employer] Other Start: 11-13-2022 Office outpatient visit 15 minutes Vale Red [facility] Start: 06-20-2022 End: 06-20-2022 ambulatory El Au Other [employer] Other Start: 06-20-2022 Office outpatient visit 15 minutes El Au [facility] Start: 05-17-2022 End: 05-17-2022 ambulatory El Au Other [employer] Other Start: 05-17-2022 Telephone encounter El baker [facility] Start: 05-09-2022 End: 05-10-[address] Niya AU Facility:[facility] Start: 05-05-2022 End: 05-05-2022 ambulatory El Au Other [employer] Other Start: 05-05-2022 Telephone encounter El baker [facility] Start: 12-20-2021 End: 12-20-2021 ambulatory El Au Other [employer] Other Start: 12-20-2021 Office outpatient visit 15 minutes El Au [facility] Start: 12-20-2021 End: 12-20-2021 Patient encounter procedure DO Brad Dean Work Phone: [facility] [place] Start: 08-30-2021 End: 08-31-[address] BRAD DEAN Facility:[facility] Start: 06-16-2021 End: 06-16-2021 ambulatory El Roe Other [employer] Other Start: 06-16-2021 Office outpatient visit 15 minutes El Au [facility] Payers Date Payer Category Payer Medicare [id number] 2.1 [id number] 1957 Private Health Insurance [id number] 1940 Unknown [id number] 2.16.84 [id number] 1940 Unknown [id number] 2.16.84 [id number] 1940 Unknown [id number] 2.16.8 [id number] 1940 Unknown [id number] 2.16.8 [id number] 1942 Unknown [id number] 2.16.8 [id number] 1942 Unknown [id number] 2.16.8 [id number] 1940 Unknown [id number] 2.16.8 [id number] Self-pay Self Pay [id number] Social History Date Type Detail Facility Unknown if ever smoked [employer] Other Sex Assigned At Sex Assigned At Bir th [employer] Other Start: 12-03-2018 Tobacco smoking status WIIS Smoker (finding) [facility] Start: 1940 Sex Assigned At Female F [facility] [place] Medical Equipment Procedure Code Equipment Code Equipment Origin al Text Equipment Identifier Dates Capsule endoscopy, for patency of lumen evaluation CAPSULE PILLCAM SB FDA Start: 10-03-2018 Clinical Notes 06-16-2021 to 03-19-2023 Note Date & Type Note Facility 03-19-2023 Note - From: BRAD DEAN DO To: [facility] Clinical Pool ([facility]_[place]); Sent: 03/19/2023 07:45:47 EST Subject: FW: Medication Management Due Date/Time: 03/19/2023 09:48:00 EST Caller Name: RANJAN LAMB; Caller Number: H From: [id number] To: BRAD DEAN DO Sent: March 16, 2023 8:48:01 AM 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 Subject: Medication Management Due: March 17, 2023 12:10:40 AM 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 On Hold Pending Signature Drug: pregabalin (pregabalin [...] Notes from Pharmacy: From: Alondra Shaffer To: [id number] Sent: 03/19/2023 12:42:04 EST Subject: FW: Medication Management Not Approved: proposed to provider pregabalin (pregabalin 50 mg capsule) TAKE 1 CAPSULE BY MOUTH THREE TIMES DAILY Qty: 90 cap(s) Days Supply: 30 Refills: 0 Substitutions Allowed Route To Pharmacy - [id number] Signed by Edmund Alondra [facility] 03-01-2023 Evaluation note Encounter Date Diagnosis Assessment Notes Feb, Iron deficiency anemia (ICD-10 - D50.9) The patient states she has had lab work at [facility] 3-4 months ago her labs were reported to be in good standing. We will repeat lab studies now. Feb, Constipation (ICD-10 - K59.00) The patient is using Dicyclomine & probiotics. She needs a refill of Dicyclomine. She has cut the probiotic back to every other day due to some constipation. 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 On Hold Pending Signature Drug: pregabalin (pregabalin 50 mg oral capsule), 1 cap(s) PO TID Quantity: 90 cap(s) Days Supply: 0 Refills: 0 Substitutions Allowed Notes from Pharmacy: Dispensed Drug: pregabalin (pregabalin 50 mg oral capsule), TAKE 1 CAPSULE BY MOUTH THREE TIMES DAILY Quantity: 90 cap(s) Days Supply: 30 Refills: 0 Substitutions Allowed Notes from Pharmacy: From: JOVANI CONNORS To: [id number] Sent: 02/19/2023 14:35:55 EST Subject: FW: Medication Management Not Approved: duplicate pregabalin (pregabalin 50 mg capsule) TAKE 1 CAPSULE BY MOUTH THREE TIMES DAILY Qty: 90 cap(s) Days Supply: 30 Refills: 0 Substitutions Allowed Route To Pharmacy - [id number] Signed by JOVANI CONNORS [facility]07-31-2023 Evaluation note* Encounter Date Diagnosis Assessment Notes [...] for recheck of hypertension following ER visit. [employer] Other 03-07-2023 Evaluation note* Encounter Date Diagnosis [...] CONTINUE ON DICYCLOMINE, REFILL SENT TO PHARMACY. [employer] Other 01-20-2023 Evaluation note* Encounter Date Diagnosis Assessment Notes Treatment Notes Treatment Clinical Notes Apr, Iron (Fe) deficiency anemia (ICD-10 - D50.9) [employer] Other 09-06-2022 Evaluation note* Encounter Date Diagnosis Assessment Notes Treatment Notes Treatment Clinical Notes Dec, Iron deficiency anemia (ICD-10 - D50.9) CONTINUE IRON DIRECTED RTO 6 MONTHS Dec, Constipation (ICD-10 - K59.00) Dec, Abdominal cramping (ICD-10 - R10.9) CONTINUE DICYCLOMINE FOUR TIMES A DAY [employer] Other 03-03-2022 Evaluation note* Encounter Date Diagnosis Assessment Notes Treatment Notes Treatment Clinical Notes Jun, Iron deficiency anemia (ICD-10 - D50.9) Continue iron Jun, Constipation (ICD-10 - K59.00) Jun, Abdominal cramping (ICD-10 - R10.9) [employer] Other Evaluation noteNo assessment information available [facility] Work Phone: Evaluation noteNo InformationNort Doutíssima Other [facility] general Narrative - Reported* Type Description Date Medical History HISTORY OF BLEEDING [facility] Medical History bladder prolapse Medical History claudication Surgical History partial hysterectomy-ovaries re 1974 Surgical History eye surgery 2019 Surgical History colposcopy Surgical History shunts in both legs 2020 Hospitalization History see above Hospitalization History [place]back [place] Hospitalization History BLEEDING [facility] [employer] Other Hisbrzv general Narrative - Reported* Type Description Date Medical History HISTORY OF BLEEDING [facility] Medical History bladder prolapse Medical History claudication Surgical History partial hysterectomy-ovaries re 1974 Surgical History eye surgery 2019 Surgical History colposcopy Surgical History shunts in both legs 2020 Hospitalization History see above Hospitalization History [place] Hospitalization History BLEEDING [facility] Hospitalization History ER October 2022 HTN [employer] Other Chief Complaint and Reason for Visit [...] Dean DO Primary Care Provider Active El Au MD Attending Provider Active Team Status: Active Member Role Status Dates Brad Dean DO Primary Care Provider Active Goals (unrecognized section and content) Goals may be documented in a n alternate section INFORMATION SOURCE (unrecogn ized section and content) DATE CREATED AUTHOR 12/21/2021 [facility] DATE CREATED AUTHOR AUTHOR'S ORGANIZ ATION 05/11/2022 [facility] DATE CREATED AUTHOR AUTHOR'S ORGANIZ ATION 05/23/2023 [facility] FOR [...] BE BASED ON THE PRIMARY CLINICAL RECORDS. [employer] provides no warranty or guarantee of the accuracy or completeness of information in this document.
[2023-05-31 13:42] LABS: Basophils Absolute Auto 0.1 10^3/uL (0.0-0.1); Basophils Percent Auto 0.8 % (0.2-2.0); Eosinophils Absolute Auto 0.3 10^3/uL (0.0-0.7); Hematocrit 37.4 % (36.0-48.0); Hemoglobin 11.3 g/dL (12.0-16.0); Immature Granulocytes Abs Auto 0.03 10^3/uL (0.00-0.03); Immature Granulocytes Pct Auto 0.3 % (0.0-0.5); Lymphocytes Absolute Auto 1.7 10^3/uL (1.2-3.8); Lymphocytes Percent Auto 20.1 % (20.5-60.0); Mean Corpuscular HGB Conc 30.2 g/dL (29.9-35.2); Mean Corpuscular Hemoglobin 27.2 pg (26.7-34.0); Mean Corpuscular Volume 90.1 fL (81.0-99.0); Mean Platelet Volume 10.1 fL (9.5-13.5); Monocytes Percent Auto 11.9 % (1.7-12.0); Neutrophils Absolute Auto 5.5 10^3/uL (1.4-6.5); Neutrophils Percent Auto 63.9 % (43.0-75.0); Platelet Count 434 10^3/uL (150-450); Red Blood Count 4.15 10^6/uL (4.20-5.40); Red Cell Distribution Width 14.7 % (11.0-15.0); White Blood Count 8.6 10^3/uL (4.0-11.0)
[2023-05-31 13:57] LABS: Partial Thromboplastin Time 22.1 sec (22.3-36.2); Prothrombin Time 9.8 sec (9.0-11.6)
[2023-05-31 14:10] LABS: Alanine Aminotransferase 14 U/L (14-59); Albumin Globulin Ratio 0.8; Albumin Level 3.1 g/dL (3.4-5.0); Alkaline Phosphatase 89 U/L (46-116); Anion Gap 12.5; Aspartate Amino Transferase 14 U/L (15-37); BUN Creatinine Ratio 16.5; Bilirubin Total 0.2 mg/dL (0.2-1.0); Calcium 8.9 mg/dL (8.5-10.1); Carbon Dioxide 26.2 mmol/L (21.0-32.0); Chloride 108 mmol/L (98-107); Estimated GFR (African America >60 (>=60); Estimated GFR (Non-African Ame 52 (>=60); Glucose 97 mg/dL (74-106); Potassium 4.7 mmol/L (3.5-5.1); Sodium 142 mmol/L (136-145); Total Protein 7.1 g/dL (6.4-8.2)
[2023-05-31 14:19] LABS: INR <0.93
== END 2023-05-31 13:09 | disposition home or self-care (01) ==
LOC: LAB 13:11
PROVIDERS: PCP Family Medicine
DX: I73.9 Peripheral vascular disease, unspecified (principal); R53.83 Other fatigue; M79.603 Pain in arm, unspecified; M79.604 Pain in right leg; R06.02 Shortness of breath
CPT/HCPCS: 36415; 80053; 85025; 85610; 85730

== ENCOUNTER 2023-07-31 14:36 | Emergency (ER) | payer MEDICARE, OTHER, SELFPAY ==
[2023-07-31] VITALS (13 sets, daily range): BP systolic 151–156; BP diastolic 53–66; PULSE 58–65; TEMP 36.6; O2SAT 97–99; BMI 22.2
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
--- NOTE | 2023-07-31 14:56 | ECG_ITS ---
The 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
--- NOTE | 2023-07-31 14:56 | XR_ITS ---
The [address] [address] Patient Name: RANJAN LAMB MRN: [id number] date: 1940 Sex: F Assigned Patient Location: ER Current Patient Location: ER Accession/Order Number: [id number] Exam Date: 07/31/2023 15:25 Report Date: 07/31/2023 15:44 At the request of: ADRIÁN CARDONA Procedure: XR chest 1V EXAMINATION: XR chest 1V HISTORY: SOB COMPARISON: 04/17/2023 TECHNIQUE: AP portable FINDINGS: LUNGS: The right lung is clear. Minimal left basilar infiltrate obscuring the left lateral hemidiaphragm The lung apices are obscured by head position VASCULATURE: No increased pulmonary vasculature. PLEURA: Suspected tiny left pleural effusion Stable lobular right hemidiaphragm CARDIAC: No cardiomegaly or cardiac silhouette abnormality. MEDIASTINUM: No visible mass or adenopathy. Retrocardiac opacity likely hernia. Aortic atherosclerosis BONES: No fracture or visible bone lesion. OTHER: Negative. XR/XR chest 1V IMPRESSION: Mild left basilar infiltrate and likely tiny pleural effusion Electronically authenticated by: SERGIO MERRILL Date: 07/31/2023 15:44
--- NOTE | 2023-07-31 15:01 | ED.SOB1 ---
HPI - SOB/Dyspnea General Chief Complaint: Shortness of Breath/Dyspnea Stated Complaint: SOB Time Seen by Provider: 07/31/23 14:40 Source: patient Mode of arrival: walk-in Limitations: no limitations History of Present Illness HPI Narrative: 83-year-old female presents for shortness of breath. It is not clear how long she has had this symptom. She states she had the flu last week which involved some nausea and vomiting and some diarrhea. She does not have chest pain and has not had a fever or productive cough. Related Data Home Medications ?Medication ?Instructions ?Recorded ?Confirmed clopidogrel 75 mg tablet 75 mg PO DAILY 10/26/22 07/31/23 dicyclomine 10 mg capsule 10 mg PO .every 4 hours 10/26/22 07/31/23 fexofenadine 180 mg tablet 180 mg PO Q24H 10/26/22 07/31/23 irbesartan 150 mg tablet 150 mg PO DAILY 10/26/22 07/31/23 pregabalin 50 mg capsule 50 mg PO Q8H 10/26/22 07/31/23 propranolol 60 mg capsule,24 60 mg PO Q24H 10/26/22 07/31/23 hr,extended release rosuvastatin 5 mg tablet 5 mg PO DAILY 10/26/22 07/31/23 hyoscyamine sulfate 0.125 mg tablet 0.125 mg PO Q8H 07/31/23 07/31/23 Previous Rx's ?Medication ?Instructions ?Recorded amlodipine 10 mg tablet (Norvasc) 10 mg PO DAILY #14 tabs 10/26/22 azithromycin 250 mg tablet See Rx Instructions PO .COMPLEX #6 07/31/23 (Zithromax Z-Kobi) tabs Allergies Allergy/AdvReac Type Severity Reaction Status Date / Time Penicillins Allergy Intermediate Verified 10/26/22 15:28 Review of Systems ROS Narrative A ten point review of systems is negative except as noted above. Exam Narrative Exam Narrative: Nurses note and vital signs reviewed and patient is not hypoxic. General: The patient appears well and in no apparent distress. Patient is resting comfortably on cart. Skin: Warm, dry, no pallor noted. There is no rash noted. Head: Normocephalic, atraumatic Eye: Normal conjunctiva, no drainage, EOMI. PERRL Ears, Nose, Mouth, and Throat: oral mucosa is moist. Nares patent. Cardiovascular: Regular Rate and Rhythm, not tachycardic Respiratory: Patient is in no distress, no accessory muscle use, lungs are clear to auscultation, no wheezing, rales or rhonchi Back: non-tender GI: Soft and nontender Musculoskeletal: The patient has no evidence of calf tenderness, no pitting edema, symmetrical pulses noted bilaterally Neurological: A&O, normal speech Psychiatric: Cooperative Constitutional Vital Signs, click to edit/add: Last Vital Signs Temp 97.9 F 07/31/23 14:44 Pulse 64 07/31/23 14:44 Resp 18 07/31/23 14:44 BP 156/66 H 07/31/23 14:44 Pulse Ox 99 07/31/23 14:44 O2 Del Method Room Air 07/31/23 14:44 Course Vital Signs Vital signs: Vital Signs Temperature 97.9 F 07/31/23 14:44 Pulse Rate 64 07/31/23 14:44 Respiratory Rate 18 07/31/23 14:44 Blood Pressure 156/66 H 07/31/23 14:44 Pulse Oximetry 99 07/31/23 14:44 Oxygen Delivery Method Room Air 07/31/23 14:44 Temperature 97.9 F 07/31/23 14:44 Pulse Rate 64 07/31/23 14:44 Respiratory Rate 18 07/31/23 14:44 Blood Pressure 156/66 H 07/31/23 14:44 Pulse Oximetry 99 07/31/23 14:44 Oxygen Delivery Method Room Air 07/31/23 14:44 MDM - SOB/Dyspnea MDM Narrative Medical decision making narrative: Chest x-ray per radiologist suggest a small left lower lobe infiltrate. She does not have a fever and she is not tachycardic or hypoxic. Blood work is essentially normal. She does not require admission to the hospital and she will be prescribed Zithromax. Treatment diagnosis and follow-up were discussed with the patient. Differential Diagnosis Differential diagnosis: Likely congestive heart failure, community acquired pneumonia and other (COVID, influenza) Lab Data Attestation: I reviewed the patient's lab results. Labs: Lab Results 07/31/23 07/31/23 Range/Units 15:06 15:19 WBC 7.0 (4.0-11.0) 10^3/uL RBC 4.54 (4.20-5.40) 10^6/uL Hgb 12.2 (12.0-16.0) g/dL Hct 38.7 (36.0-48.0) % MCV 85.2 (81.0-99.0) fL MCH 26.9 (26.7-34.0) pg MCHC 31.5 (29.9-35.2) g/dL RDW 15.1 H (11.0-15.0) % Plt Count 383 (150-450) 10^3/uL MPV 10.3 (9.5-13.5) fL Neut % (Auto) 59.2 (43.0-75.0) % Lymph % (Auto) 25.0 (20.5-60.0) % [place] % (Auto) 13.5 H (1.7-12.0) % Eos % (Auto) 1.1 (0.9-7.0) % Baso % (Auto) 1.1 (0.2-2.0) % Neut # (Auto) 4.2 (1.4-6.5) 10^3/uL Lymph # (Auto) 1.8 (1.2-3.8) 10^3/uL [place] # (Auto) 1.0 H (0.3-0.8) 10^3/uL Eos # (Auto) 0.1 (0.0-0.7) 10^3/uL Baso # (Auto) 0.1 (0.0-0.1) 10^3/uL Abs Immat Gran (auto) 0.01 (0.00-0.03) 10^3/uL Imm/Tot Granulo (auto) 0.1 (0.0-0.5) % D-Dimer 0.48 (<=0.59) mg/L FEU Sodium 134 L (136-145) mmol/L Potassium 4.2 (3.5-5.1) mmol/L Chloride 100 (98-107) mmol/L Carbon Dioxide 25.8 (21.0-32.0) mmol/L Anion Gap 12.4 BUN 10.0 (7.0-18.0) mg/dL Creatinine 0.96 (0.55-1.02) mg/dL Est GFR ( Amer) >60 (>=60) Est GFR (Non-Af Amer) 56 L (>=60) BUN/Creatinine Ratio 10.4 Glucose 110 H (74-106) mg/dL Calcium 10.1 (8.5-10.1) mg/dL Troponin I High Sens 7.0 (4.0-51.3) pg/mL Influenza Type A Ag Negative Influenza Type B Ag Negative SARS-CoV-2 Ag (CV2AG) Negative (NEGATIVE) Imaging Data Chest x-ray: Radiologist's impression: ITS Impressions Chest X-Ray 07/31/23 14:56 IMPRESSION: Mild left basilar infiltrate and likely tiny pleural effusion Electronically authenticated by: SERGIO MERRILL Date: 07/31/2023 15:44 ECG Data Attestation: I personally reviewed and interpreted this ECG as follows: (EKG on my interpretation shows no acute findings, artifact present in sinus rhythm as well.) Discharge Plan Discharge Stand Alone Forms: Portal Instructions Chief Complaint: Shortness of Breath/Dyspnea Clinical Impression: Pneumonia Patient Disposition: Home, Self-Care Time of Disposition Decision: 16:11 Condition: Good Mode of Transportation: Private Vehicle Prescriptions / Home Meds: New azithromycin [Zithromax Z-Kobi] 250 mg tablet See Rx Instructions .ROUTE .COMPLEX Qty: 6 0RF Rx Instructions: For 250 mg dose pack: take 500 mg today (day 1), then 250 mg for 4 days (days 2-5) No Action clopidogrel 75 mg tablet 75 mg PO DAILY dicyclomine 10 mg capsule 10 mg PO .every 4 hours fexofenadine 180 mg tablet 180 mg PO Q24H irbesartan 150 mg tablet 150 mg PO DAILY pregabalin 50 mg capsule 50 mg PO Q8H propranolol 60 mg capsule,extended release 24 hr 60 mg PO Q24H rosuvastatin 5 mg tablet 5 mg PO DAILY amlodipine [Norvasc] 10 mg tablet 10 mg PO DAILY Qty: 14 0RF hyoscyamine sulfate 0.125 mg tablet 0.125 mg PO Q8H Print Language: German Instructions: Community Acquired Pneumonia (ED) Referrals: LICHA DEAN [Primary Care Provider] - 1 week
[2023-07-31 15:20] LABS: Basophils Absolute Auto 0.1 10^3/uL (0.0-0.1); Basophils Percent Auto 1.1 % (0.2-2.0); Eosinophils Absolute Auto 0.1 10^3/uL (0.0-0.7); Eosinophils Percent Auto 1.1 % (0.9-7.0); Hematocrit 38.7 % (36.0-48.0); Hemoglobin 12.2 g/dL (12.0-16.0); Immature Granulocytes Abs Auto 0.01 10^3/uL (0.00-0.03); Immature Granulocytes Pct Auto 0.1 % (0.0-0.5); Lymphocytes Absolute Auto 1.8 10^3/uL (1.2-3.8); Mean Corpuscular HGB Conc 31.5 g/dL (29.9-35.2); Mean Corpuscular Hemoglobin 26.9 pg (26.7-34.0); Mean Corpuscular Volume 85.2 fL (81.0-99.0); Mean Platelet Volume 10.3 fL (9.5-13.5); Monocytes Percent Auto 13.5 % (1.7-12.0); Neutrophils Absolute Auto 4.2 10^3/uL (1.4-6.5); Neutrophils Percent Auto 59.2 % (43.0-75.0); Platelet Count 383 10^3/uL (150-450); Red Blood Count 4.54 10^6/uL (4.20-5.40); Red Cell Distribution Width 15.1 % (11.0-15.0)
[2023-07-31 15:33] LABS: Anion Gap 12.4; BUN Creatinine Ratio 10.4; Calcium 10.1 mg/dL (8.5-10.1); Carbon Dioxide 25.8 mmol/L (21.0-32.0); Chloride 100 mmol/L (98-107); Estimated GFR (African America >60 (>=60); Estimated GFR (Non-African Ame 56 (>=60); Glucose 110 mg/dL (74-106); Potassium 4.2 mmol/L (3.5-5.1); Sodium 134 mmol/L (136-145)
[2023-07-31 15:42] LABS: D Dimer 0.48 mg/L FEU (<=0.59)
[2023-07-31 15:59] LABS: Influenza Virus A Antigen Negative; Influenza Virus B Antigen Negative; Internal Control Within Normal Limits; SARS-CoV-2 Ag NEGATIVE (NEGATIVE)
== END 2023-07-31 16:35 | disposition home or self-care (01) ==
PROVIDERS: Emergency Provider Emergency Medicine; PCP Family Medicine
DX: J18.9 Pneumonia, unspecified organism (principal); Z79.899 Other long term (current) drug therapy; Z20.822 Contact with and (suspected) exposure to COVID-19
CPT/HCPCS: 36415; 71045; 80048; 84484; 85025; 85378; 87804; 87811; 93005; 99285

== ENCOUNTER 2023-08-06 21:24 | Emergency (ER) | payer MEDICARE, OTHER, SELFPAY ==
[2023-08-06] VITALS (15 sets, daily range): BP systolic 140; BP diastolic 58; PULSE 50–74; TEMP 36.6; O2SAT 79–100; BMI 22.2
--- NOTE | 2023-08-06 21:43 | ECG_ITS ---
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
--- NOTE | 2023-08-06 21:44 | ED_ITS ---
HPI - Anxiety General Chief Complaint: Anxiety Stated Complaint: CP/ANXIETY/ABDOMINAL CRAMPS Time Seen by Provider: 08/06/23 21:40 History of Present Illness HPI narrative: 83-year-old female presents to the emergency department for a chief complaint of anxiety. She was recently treated for pneumonia. Those symptoms seem to have resolved. She has been feeling quite anxious in the last day or 2. She states she has been anxious for quite some time but has never been treated for it. No vomiting. She complains of some pain across her upper abdomen. No constipation or diarrhea. Related Data Home Medications ?Medication ?Instructions ?Recorded ?Confirmed clopidogrel 75 mg tablet 75 mg PO DAILY 10/26/22 07/31/23 dicyclomine 10 mg capsule 10 mg PO .every 4 hours 10/26/22 07/31/23 fexofenadine 180 mg tablet 180 mg PO Q24H 10/26/22 07/31/23 irbesartan 150 mg tablet 150 mg PO DAILY 10/26/22 07/31/23 pregabalin 50 mg capsule 50 mg PO Q8H 10/26/22 07/31/23 propranolol 60 mg capsule,24 60 mg PO Q24H 10/26/22 07/31/23 hr,extended release rosuvastatin 5 mg tablet 5 mg PO DAILY 10/26/22 07/31/23 hyoscyamine sulfate 0.125 mg tablet 0.125 mg PO Q8H 07/31/23 07/31/23 Previous Rx's ?Medication ?Instructions ?Recorded amlodipine 10 mg tablet (Norvasc) 10 mg PO DAILY #14 tabs 10/26/22 azithromycin 250 mg tablet See Rx Instructions PO .COMPLEX #6 07/31/23 (Zithromax Z-Kobi) tabs Allergies Allergy/AdvReac Type Severity Reaction Status Date / Time Penicillins Allergy Intermediate Verified 08/06/23 21:50 Review of Systems ROS Narrative A ten point review of systems is negative except as noted above. Exam Narrative Exam Narrative: Nurses note and vital signs reviewed and patient is not hypoxic. General: The patient appears in no apparent distress. Patient is resting comfortably on cart. Skin: Warm, dry, no pallor noted. There is no rash noted. Head: Normocephalic, atraumatic Eye: Normal conjunctiva, no drainage Ears, Nose, Mouth, and Throat: oral mucosa is moist. Nares patent. Cardiovascular: Regular Rate and Rhythm Respiratory: Patient is in no distress, no accessory muscle use, lungs are clear to auscultation, no wheezing, rales or rhonchi Back: non-tender GI: Mild tenderness across her upper abdomen Musculoskeletal: The patient has no evidence of calf tenderness, no pitting edema, symmetrical pulses noted bilaterally Neurological: A&O, normal speech Psychiatric: Cooperative Constitutional Vital Signs, click to edit/add: Last Vital Signs Temp 97.8 F 08/06/23 21:44 Pulse 56 L 08/06/23 21:44 Resp 18 08/06/23 21:44 BP 140/58 08/06/23 21:44 Pulse Ox 98 08/06/23 21:44 O2 Del Method Room Air 08/06/23 21:44 Course Vital Signs Vital signs: Vital Signs Temperature 97.8 F 08/06/23 21:44 Pulse Rate 56 L 08/06/23 21:44 Respiratory Rate 18 08/06/23 21:44 Blood Pressure 140/58 08/06/23 21:44 Pulse Oximetry 98 08/06/23 21:44 Oxygen Delivery Method Room Air 08/06/23 21:44 Temperature 97.8 F 08/06/23 21:44 Pulse Rate 56 L 08/06/23 21:44 Respiratory Rate 18 08/06/23 21:44 Blood Pressure 140/58 08/06/23 21:44 Pulse Oximetry 98 08/06/23 21:44 Oxygen Delivery Method Room Air 08/06/23 21:44 MDM - Anxiety MDM Narrative Medical decision making narrative: Her workup is negative. My clinical impression is that her symptoms are due to anxiety. She has an appointment with Dr. Dean, her PCP, in the afternoon and she will keep that appointment. Findings are discussed with the patient and her family. Differential Diagnosis Differential diagnosis: Likely acute anxiety and other (UTI, constipation) Lab Data Attestation: I reviewed the patient's lab results. Labs: Lab Results 08/06/23 08/06/23 08/06/23 Range/Units 21:54 22:21 23:45 WBC 7.9 (4.0-11.0) 10^3/uL RBC 4.59 (4.20-5.40) 10^6/uL Hgb 12.5 (12.0-16.0) g/dL Hct 38.8 (36.0-48.0) % MCV 84.5 (81.0-99.0) fL MCH 27.2 (26.7-34.0) pg MCHC 32.2 (29.9-35.2) g/dL RDW 15.3 H (11.0-15.0) % Plt Count 410 (150-450) 10^3/uL MPV 10.5 (9.5-13.5) fL Neut % (Auto) 54.9 (43.0-75.0) % Lymph % (Auto) 27.8 (20.5-60.0) % [place] % (Auto) 14.0 H (1.7-12.0) % Eos % (Auto) 1.8 (0.9-7.0) % Baso % (Auto) 1.4 (0.2-2.0) % Neut # (Auto) 4.3 (1.4-6.5) 10^3/uL Lymph # (Auto) 2.2 (1.2-3.8) 10^3/uL [place] # (Auto) 1.1 H (0.3-0.8) 10^3/uL Eos # (Auto) 0.1 (0.0-0.7) 10^3/uL Baso # (Auto) 0.1 (0.0-0.1) 10^3/uL Abs Immat Gran (auto) 0.01 (0.00-0.03) 10^3/uL Imm/Tot Granulo (auto) 0.1 (0.0-0.5) % Sodium 135 L (136-145) mmol/L Potassium 3.9 (3.5-5.1) mmol/L Chloride 100 (98-107) mmol/L Carbon Dioxide 23.0 (21.0-32.0) mmol/L Anion Gap 15.9 BUN 8.0 (7.0-18.0) mg/dL Creatinine 0.90 (0.55-1.02) mg/dL Est GFR ( Amer) >60 (>=60) Est GFR (Non-Af Amer) >60 (>=60) BUN/Creatinine Ratio 8.9 Glucose 106 (74-106) mg/dL Calcium 9.8 (8.5-10.1) mg/dL Total Bilirubin 0.3 (0.2-1.0) mg/dL Direct Bilirubin 0.1 (0.0-0.2) mg/dL AST 16 (15-37) U/L ALT 13 L (14-59) U/L Alkaline Phosphatase 80 (46-116) U/L Total Protein 7.1 (6.4-8.2) g/dL Albumin 3.7 (3.4-5.0) g/dL Globulin 3.4 g/dL Albumin/Globulin Ratio 1.1 Amylase 43 (25-115) U/L Lipase 41.0 (16.0-77.0) U/L Urine Color Lt. yellow (YELLOW) Urine Clarity Clear (CLEAR) Urine pH 5.5 (5.0-9.0) Ur Specific [place] 1.015 (1.005-1.025) Urine Protein Negative (NEG/TRACE) mg/dL Urine Glucose (UA) Negative (NEGATIVE) mg/dL Urine Ketones Trace A (NEGATIVE) mg/dL Urine Occult Blood Negative (NEGATIVE) Urine Nitrite Negative (NEGATIVE) Urine Bilirubin Negative (NEGATIVE) Urine Urobilinogen 0.2 (0.2-1.0) EU/dL Ur Leukocyte Esterase Negative (NEGATIVE) Urine RBC None seen (0-2) #/HPF Urine WBC 0-2 A (NONE SEEN) #/HPF Ur Squamous Epith Cells Many A (NONE/RARE) #/LPF Urine Crystals None seen (None Seen) #/HPF Amorphous Sediment Few Urine Bacteria None seen (NONE SEEN) #/HPF Urine Casts None seen (NONE SEEN) #/LPF Urine Mucus None seen (NONE SEEN) Ur Culture Indicated? No Imaging Data Abdominal x-ray: Radiologist's impression: ITS Impressions Abdomen X-Ray 08/06/23 22:31 IMPRESSION: 1. Nonspecific bowel gas pattern without evidence of bowel obstruction. Electronically authenticated by: Gabriel IZAGUIRRE Date: 08/06/2023 23:36 ECG Data Attestation: I personally reviewed and interpreted this ECG as follows: (EKG on my interpretation shows sinus rhythm without acute change. Artifact present.) Discharge Plan Discharge Stand Alone Forms: Portal Instructions Chief Complaint: Anxiety Clinical Impression: Acute anxiety Patient Disposition: Home, Self-Care Time of Disposition Decision: 00:41 Condition: Good Mode of Transportation: Private Vehicle Prescriptions / Home Meds: No Action clopidogrel 75 mg tablet 75 mg PO DAILY dicyclomine 10 mg capsule 10 mg PO .every 4 hours fexofenadine 180 mg tablet 180 mg PO Q24H irbesartan 150 mg tablet 150 mg PO DAILY pregabalin 50 mg capsule 50 mg PO Q8H propranolol 60 mg capsule,extended release 24 hr 60 mg PO Q24H rosuvastatin 5 mg tablet 5 mg PO DAILY amlodipine [Norvasc] 10 mg tablet 10 mg PO DAILY Qty: 14 0RF hyoscyamine sulfate 0.125 mg tablet 0.125 mg PO Q8H azithromycin [Zithromax Z-Kobi] 250 mg tablet See Rx Instructions .ROUTE .COMPLEX Qty: 6 0RF Rx Instructions: For 250 mg dose pack: take 500 mg today (day 1), then 250 mg for 4 days (days 2-5) Print Language: Citizen Of [place] Instructions: Anxiety (ED) Additional Instructions: See Dr. Dean at your appointment at 3 PM Referrals: LICHA DEAN [Primary Care Provider] - 1 week
--- OUTSIDE RECORDS SUMMARY | 2023-08-06 21:53 | XMS_ITS | CCD ---
Author Organization [facility] Care Team Providers Care Anaesthesiologist Name Role Phone El Au Unavailable DO Brad Dean Primary Care Provider MD El Au Attending Provider [phone] ROE, DR Niya Dobbins Attending Unavailable ROE, DR Niya Dobbins Consulting Unavailable ROE, DR Niya Dobbins Admitting Unavailable HOUSE, DR HURT Primary Care Unavailable HOUSE, DR HURT Primary Care Unavailable BECKY, DR KAISER Attending Unavailable BECKY, DR KAISER Consulting Unavailable BECKY, DR KAISER Admitting Unavailable ZIEBER, DR JULIA Dobbins Consulting Unavailable Neda, Vale Unavailable Demetrius BONILLA, Johan Puente Attending Unavailable [...] Facility (8 sources) Iodine Drug Allergy 9 [facility] (7 sources) Penicillin G Drug Allergy [employer] Other (2 sources) Penicillins; Translations: [Penicillins] Allergy to substance 5 [facility] (1 source) Povidone-Iodine Drug Allergy 9 [facility] (1 source) soap Allergy to substance 9 [facility] (2 sources) Povidone-Iodine; Translations: [Betadine] Drug Allergy 5 [facility] Repository (1 source) Penicillin; Translations: [penicillin] Drug Allergy [facility] Repository Medications Current Medications Medication Drug [...] 1 tablet by mouth once daily Vitamin Z64-Amkwc Acid Active 1 TAB PO Daily September [...] and visceral atherosclerosis (5 sources) 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, bilateral legs; Translations: [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, unspecified extremity] Onset: 2 Chronic Residual codes; unclassified (7 sources) Body mass index 20-24 - normal; Translations: [Body mass index (BMI) 21.0-21.9, adult] Episodic Past or Other Problems Problem Classification Problem Date Documented Da te Episodic/Chronic Unclassified (1 source) Suspected COVID-19 virus infection Z20.822 Results Test Name Value Interpretation Reference Range Facility Miscellaneouson 2023 Miscellaneous [id number] [facility] 12[facility]2022 Outside Records [id number] [facility]2022 Patient Handout [id number] 4[facility] [id number] 4[facility] COVID Quick Testingon 2022 Result Negative [facility] Other CBC AUTO DIFFon 05-09-2022 BASO # 0.1 103/ul Normal 0.0-0.1 [facility] Comment on above: Performed By: #### C BC #### [facility] [address] [place] [address] Dr. Sadaf Canela Basophils/100 WBC (Bld) 0.8 % Normal 0.2-2.0 [facility] Comment on above: Performed By: #### C BC #### [facility] [address] [place] [address] Dr. Sadaf Canela EO # 0.2 103/ul Normal 0.0-0.7 [facility] Comment on above: Performed By: #### C BC #### [facility] [address] [place] [address] Dr. Sadaf Canela Eosinophils/100 WBC (Bld) 2.1 % Normal 0.9-7.0 [facility] Comment on above: Performed By: #### C BC #### [facility] [address] [place] [address] Dr. Sadaf Canela Erythrocyte distribution width (RBC) [Ratio] 14.6 % Normal 11.0-15.0 [facility] Comment on above: Performed By: #### C BC #### [facility] [address] [place] [address] Dr. Sadaf Canela Hematocrit (Bld) [Volume fraction] 40.4 % Normal 36.0-48.0 [facility] Comment on above: Performed By: #### C BC #### [facility] [address] [place] [address] Dr. Sadaf Canela Hemoglobin (Bld) [Mass/Vol] 12.6 g/dL Normal 12.0-16.0 [facility] Comment on above: Performed By: #### C BC #### [facility] [address] [place] [address] Dr. Sadaf Canela IG # 0.01 10e3/ul Normal 0.00-0.03 [facility] Comment on above: Performed By: #### C BC #### [facility] [address] [place] [address] Dr. Sadaf Canela IG % 0.1 % Normal 0.0-0.5 [facility] Comment on above: Performed By: #### C BC #### [facility] [address] [place] [address] Dr. Sadaf Canela LYMPH # 1.6 103/ul Normal 1.2-3.8 [facility] Comment on above: Performed By: #### C BC #### [facility] [address] [place] [address] Dr. Sadaf Canela Lymphocytes/100 WBC (Bld) 22.2 % Normal 20.5-60.0 [facility] Comment on above: Performed By: #### C BC #### [facility] [address] [place] [address] Dr. Sadaf Canela MANUAL DIFF REQ NO Normal [facility] Comment on above: Performed By: #### C BC #### [facility] [address] [place] [address] Dr. Sadaf Canela MCH (RBC) [Entitic mass] 27.6 pg Normal 26.7-34.0 [facility] Comment on above: Performed By: #### C BC #### [facility] [address] [address] [address] Sadaf Canela MCHC (RBC) [Mass/Vol] 31.2 g/dL Normal 29.9-35.2 [facility] Comment on above: Performed By: #### C BC #### [facility] [address] [address] [address] Sadaf Canela MCV (RBC) [Entitic vol] 88.4 fL Normal 81.0-99.0 [facility] Comment on above: Performed By: #### C BC #### [facility] [address] [address] [address] Sadaf Canela MONO # 0.9 103/ul Critically high 0.3-0.8 [facility] Comment on above: Performed By: #### C BC #### [facility] [address] [address] [address] Sadaf Canela Monocytes/100 WBC (Bld) 12.4 % Critically high 1.7-12.0 [facility] Comment on above: Performed By: #### C BC #### [facility] [address] [place] [address] Dr. Sadaf Canela NEUT # 4.5 103/ul Normal 1.4-6.5 [facility] Comment on above: Performed By: #### C BC #### [facility] [address] [place] [address] Dr. Sadaf Canela Neutrophils/100 WBC (Bld) 62.4 % Normal 43.0-75.0 [facility] Comment on above: Performed By: #### C BC #### [facility] [address] [address] [address] Sadaf Canela Platelet mean volume (Bld) [Entitic vol] 10.2 fL Normal 9.5-13.5 [facility] Comment on above: Performed By: #### C BC #### [facility] [address] [address] [address] Sadaf Canela PLT 351 103/ul Normal 150-450 [facility] Comment on above: Performed By: #### C BC #### [facility] [address] [address] [address] Sadaf Canela RBC 4.57 106/ul Normal 4.20-5.40 [facility] Comment on above: Performed By: #### C BC #### [facility] [address] [address] [address] Sadaf Canela WBC 7.2 103/ul Normal 4.0-11.0 [facility] Comment on above: Performed By: #### C BC #### [facility] [address] [address] [address] Sadaf Canela FERRITINon 05-09-2022 Ferritin [Mass/Vol] 19.0 ng/mL Normal 8.0-252.0 [facility] Comment on above: Performed By: #### F ERR #### [facility] [address] [address] [address] Sadaf Canela Blood hemoglobin measurement (mass/volume)Ordered By: El Au on 12-20-2021 Hemoglobin (Bld) [Mass/Vol] 13.4 g/dL 11.8-15.4 [facility] Hematocrit Auto (Bld) [Volum e fraction]Ordered By: El Au on 12-20-2021 Hematocrit (Bld) [Volume fraction] 41.1 % 34.0-46.4 [facility] Hemoglobin and Hematocriton 12-20-2021 Hematocrit (Bld) [Volume fraction] 41.1 % Normal 34.0-46.4 [facility] Comment on above: Order Comment: Reaso n for Exam Iron deficiency anemia Result Comment: PERF ORMED BY: [place] [address] PATHOLOGIST MEDICAL TRANSLATOR HOLLIE BONNER M.D. Performed By: #### H H #### [address] Hemoglobin (Bld) [Mass/Vol] 13.4 g/dL Normal 11.8-15.4 [facility] Comment on above: Order Comment: Reaso n for Exam Iron deficiency anemia Performed By: #### H H #### [facility] [address] Hematocrit (Bld) [Volume fraction] 41.100 % Normal 34.0-46.4 % [facility] [employer] Other Hemoglobin (Bld) [Mass/Vol] 13.436835 g/dL Normal 11.8-15.4 g/dL [facility] Other CREATININEon 08-30-2021 Creatinine [Mass/Vol] 0.82 mg/dL Normal 0.55-1.02 [facility] Comment on above: Performed By: #### C HANNAH #### [facility] [address] [address] [address] Sadaf Canela EGFR-AF MALAYSIAN >60 Normal >=60 [facility] Comment on above: Performed By: #### C HANNAH #### [facility] [address] [address] [address] Sadaf Canela EGFR-NON AF MALAYSIAN >60 Normal >=60 [facility] Comment on above: Performed By: #### C HANNAH #### [facility] [address] [address] [address] Sadaf Canela CTA ABD MALENA WWO [...] by: JULIA ECHEVARRIA Date: 2021-08-30 15:07 Normal [facility] Complete Blood Count Auto Di ffon 06-16-2021 Basophils (Bld) [#/Vol] 0.1 10*3/uL Normal 0.0-0.2 [facility] Other Comment on above: Order Comment: Reaso n for Exam Iron deficiency anemia Result Comment: PERF ORMED BY: [address] [address] PATHOLOGIST MEDICAL TRANSLATOR HOLLIE BONNER M.D. Performed By: #### C #### [address] Basophils/100 WBC (Bld) 1.3 % Normal . [facility] Other Comment on above: Order Comment: Reaso n for Exam Iron deficiency anemia Performed By: #### C BC #### [facility] [address] Eosinophils (Bld) [#/Vol] 0.2 10*3/uL Normal 0.0-0.45 [facility] Other Comment on above: Order Comment: Reaso n for Exam Iron deficiency anemia Performed By: #### C BC #### [address] Eosinophils/100 WBC (Bld) 1.7 % Normal . [facility] Other Comment on above: Order Comment: Reaso n for Exam Iron deficiency anemia Performed By: #### C BC #### [address] Erythrocyte distribution width (RBC) [Ratio] 14.5 % Normal 11.9-15.3 [facility] Other Comment on above: Order Comment: Reaso n for Exam Iron deficiency anemia Performed By: #### C BC #### [address] Hematocrit (Bld) [Volume fraction] 41.8 % Normal 34.0-46.4 [facility] Other Comment on above: Order Comment: Reaso n for Exam Iron deficiency anemia Performed By: #### C BC #### [place] [id number] [facility] Hemoglobin (Bld) [Mass/Vol] 13.6 g/dL Normal 11.8-15.4 [facility] Other Comment on above: Order Comment: Reaso n for Exam Iron deficiency anemia Performed By: #### C BC #### [place] [id number] [facility] Lymphocytes (Bld) [#/Vol] 2.1 10*3/uL Normal 1.00-4.8 [facility] Other Comment on above: Order Comment: Reaso n for Exam Iron deficiency anemia Performed By: #### C BC #### [address] Lymphocytes/100 WBC (Bld) 23.5 % Normal . [facility] [employer] Other Comment on above: Order Comment: Reaso n for Exam Iron deficiency anemia Performed By: #### C BC #### [address] MCH (RBC) [Entitic mass] 28.9 pg Normal 24.7-34.3 [facility] [employer] Other Comment on above: Order Comment: Reaso n for Exam Iron deficiency anemia Performed By: #### C BC #### [address] MCV (RBC) [Entitic vol] 88.9 fL Normal 80-100 [facility] [employer] Other Comment on above: Order Comment: Reaso n for Exam Iron deficiency anemia Performed By: #### C BC #### [address] Mean Corpuscular HGB Conc 32.5 g/dL Normal 32.0-35.0 [facility] Comment on above: Order Comment: Reaso n for Exam Iron deficiency anemia Performed By: #### C BC #### [place] [address] [place] Monocytes (Bld) [#/Vol] 1.1 10*3/uL High 0.0-0.8 [facility] [employer] Other Comment on above: Order Comment: Reaso n for Exam Iron deficiency anemia Performed By: #### C BC #### [address] Monocytes/100 WBC (Bld) 12.1 % Normal . [facility] Other Comment on above: Order Comment: Reaso n for Exam Iron deficiency anemia Performed By: #### C BC #### [place] [address] [place] Neutrophils (Bld) [#/Vol] 5.5 10*3/uL Normal 1.8-7.7 [facility] [employer] Other Comment on above: Order Comment: Reaso n for Exam Iron deficiency anemia Performed By: #### C BC #### [address] Neutrophils/100 WBC (Bld) 61.4 % Normal . [facility] [employer] Other Comment on above: Order Comment: Reaso n for Exam Iron deficiency anemia Performed By: #### C BC #### [address] Nucleated RBC/100 WBC (Bld) [Ratio] 0.0 % Normal 0-0.5 [facility] Comment on above: Order Comment: Reaso n for Exam Iron deficiency anemia Performed By: #### C BC #### [address] Platelet mean volume (Bld) [Entitic vol] 7.9 fL Normal 6.3-10.7 [facility] [employer] Other Comment on above: Order Comment: Reaso n for Exam Iron deficiency anemia Performed By: #### C BC #### [place] [address] [place] Platelets (Bld) [#/Vol] 337 10*3/uL Normal 150-450 [facility] [employer] Other Comment on above: Order Comment: Reaso n for Exam Iron deficiency anemia Performed By: #### C BC #### [place] [address] [place] RBC (Bld) [#/Vol] 4.71 10*6/uL Normal 3.60-5.00 [facility] Other Comment on above: Order Comment: Reaso n for Exam Iron deficiency anemia Performed By: #### C BC #### [place] [address] [place] WBC (Bld) [#/Vol] 8.9 10*3/uL Normal 4.5-11.0 [facility] Other Comment on above: Order Comment: Kya harden for Exam Iron deficiency anemia Performed By: #### C BC #### [facility] [address] MCH (RBC) [Entitic mass] 32.5 pg 32.0-35.0 [facility] Other Complete Blood Count Auto Diff 8.9 4.5-11.0 [facility] Other Complete Blood Count Auto Diff 0.0 0-0.5 [facility] Other Vital Signs Date Time Vital Sign Value Performing Clinician Facility 03-01-2023 14:45-0500 Body height 151.13 cm El Roe Other [facility] Other 03-01-2023 14:45-0500 Body mass index (BMI) [Ratio] 25.62 kg/m2 El Roe Other [facility] Other 03-01-2023 14:45-0500 Body weight 58.51 kg El Au Other [facility] Other 11-13-2022 14:55-0400 Body height 151.13 cm Vale Red Other [facility] Other 11-13-2022 14:55-0400 Body mass index (BMI) [Ratio] 25.74 kg/m2 Vale Red Other [facility] Other 11-13-2022 14:55-0400 Body temperature 96.8 [degF] Vale Red Other [facility] Other 11-13-2022 14:55-0400 Body weight 58.79 kg Vale Neda Other [facility] Other 11-13-2022 14:55-0400 Diastolic blood pressure 59 mm[Hg] Vale Neda Other [facility] Other 11-13-2022 14:55-0400 Respiratory rate 18 /min Vale Neda Other [facility] Other 11-13-2022 14:55-0400 SaO2% (BldA) [Mass fraction] 98 % Vale Neda Other [facility] Other 11-13-2022 14:55-0400 Systolic blood pressure 155 mm[Hg] Valekei Red Other [facility] Other 06-20-2022 13:00-0500 Body height 151.13 cm El Au Other [facility] Other 06-20-2022 13:00-0500 Body mass index (BMI) [Ratio] 22.84 kg/m2 El Au Other [facility] Other 06-20-2022 13:00-0500 Body weight 52.16 kg El Au Other [facility] Other 06-20-2022 13:00-0500 Diastolic blood pressure 103 mm[Hg] El Au Other [facility] Other 06-20-2022 13:00-0500 Systolic blood pressure 208 mm[Hg] El Au Other [facility] Other 12-20-2021 14:00-0400 Body height 151.13 cm El Au Other [facility] Other 12-20-2021 14:00-0400 Body mass index (BMI) [Ratio] 24.62 kg/m2 El Au Other [facility] Other 12-20-2021 14:00-0400 Body weight 56.25 kg El Au Other [facility] Other 12-20-2021 14:00-0400 Diastolic blood pressure 83 mm[Hg] El Au Other [facility] Other 12-20-2021 14:00-0400 Systolic blood pressure 159 mm[Hg] El Roe Other [facility] Other 06-16-2021 14:00-0500 Body height 151.13 cm El Au Other [facility] Other 06-16-2021 14:00-0500 Body mass index (BMI) [Ratio] 26.61 kg/m2 El Au Other [facility] Other 06-16-2021 14:00-0500 Body weight 60.78 kg El uA Other [facility] Other Encounters Encounter Date Encounter Type Care Provider Facility Start: 07-25-2023 End: 07-26-2023 ambulatory BRAD DEAN Facility:[facility] Start: 06-05-2023 End: 06-06-2023 ambulatory BRAD DEAN Facility:[facility] Start: 05-22-2023 End: 05-23-2023 ambulatory Johan Romo MD Facility:[facility] Start: 03-05-2023 End: 03-06-2023 ambulatory Johan Romo MD Facility[facility] Start: 03-01-2023 End: 03-01-2023 ambulatory El Au Other [facility] Other Start: 03-01-2023 Office outpatient visit 15 minutes El Au [facility] Start: 01-17-2023 End: 01-18-2023 ambulatory Johan Romo MD Facility:[facility] Start: 12-11-2022 End: 12-12-2022 ambulatory BRAD P HOUSE Facility:[facility] Start: 11-30-2022 End: 12-01-2022 ambulatory BRAD P HOUSE Facility:[facility] Start: 11-13-2022 End: 11-13-2022 ambulatory Vale Red Other [facility] Other Start: 11-13-2022 Office outpatient visit 15 minutes Vale Red [facility] Start: 06-20-2022 End: 06-20-2022 ambulatory El Au Other [facility] Other Start: 06-20-2022 Office outpatient visit 15 minutes El Au [facility] Start: 05-17-2022 End: 05-17-2022 ambulatory El Au Other [facility] Other Start: 05-17-2022 Telephone encounter El baker [facility] Start: 05-09-2022 End: 05-10-[address] Niya AU Facility: Start: 05-05-2022 End: 05-05-2022 ambulatory El Au Other [facility] Other Start: 05-05-2022 Telephone encounter El baker [facility] Start: 12-20-2021 End: 12-20-2021 ambulatory El Au Other [facility] Other Start: 12-20-2021 Office outpatient visit 15 minutes El Au [facility] Start: 12-20-2021 End: 12-20-2021 Patient encounter procedure DO Brad Dean Work Phone: [facility] [place] Start: 08-30-2021 End: 08-31-[address] BRAD DEAN Facility:[facility] Start: 06-16-2021 End: 06-16-2021 ambulatory El Au Other [facility] Other Start: 06-16-2021 Office outpatient visit 15 minutes El Au [facility] Payers Date Payer Category Payer Medicare [id number] 2.1 [id number] 1959 Private Health Insurance [id number] 1942 Unknown [id number] 2.16.84 [id number] 1942 Unknown [id number] 2.16.84 [id number] 1942 Unknown [id number] 2.16.8 [id number] 1942 Unknown [id number] 2.16.8 [id number] 1942 Unknown [id number] 2.16.8 [id number] 1942 Unknown [id number] 2.16.8 [id number] 1942 Unknown [id number] 2.16.8 [id number] 1942 Unknown [id number] 2.16.8 [id number] 1942 Unknown [id number] 2.16.8 [id number] Self-pay Self Pay [id number] Social History Date Type Detail Facility Unknown if ever smoked [facility] [employer] Other Sex Assigned At Sex Assigned At Bir th [facility] Other Start: 12-03-2018 Tobacco smoking status NHIS Smoker (finding) [facility] Start: 1940 Sex Assigned At Female F [facility] Medical Equipment Procedure Code Equipment Code Equipment Origin al Text Equipment Identifier Dates Capsule endoscopy, for patency of lumen evaluation CAPSULE PILLCAM SB FDA Start: 10-03-2018 Clinical Notes 06-16-2021 to 06-18-2023 Note Date & Type Note Facility 06-18-2023 Note - From: BRAD DEAN DO To: [facility] Clinical Pool ([facility]); Sent: 06/18/2023 07:52:55 EST Subject: FW: Medication Management Due Date/Time: 06/18/2023 14:38:00 EST Caller Name: RANJAN LAMB; Caller Number: H From: [id number] To: BRAD DEAN DO Sent: June 17, 2023 1:38:41 PM CRIMINALIST Subject: Medication Management Due: June 18, 2023 12:02:44 AM CRIMINALIST On Hold Pending Signature Drug: pregabalin (pregabalin [...] 0 Substitutions Allowed Notes from Pharmacy: [facility] 03-19-2023 Note - From: BRAD DEAN DO To: [facility] Clinical Pool ([facility] Sent: 03/19/2023 07:45:47 EST Subject: FW: Medication Management Due Date/Time: 03/19/2023 09:48:00 EST Caller Name: RANJAN LAMB; Caller Number: H From: [id number] To: BRAD DEAN DO Sent: March 16, 2023 8:48:01 AM CRIMINALIST Subject: Medication Management Due: March 17, 2023 12:10:40 AM CRIMINALIST On Hold Pending Signature Drug: pregabalin (pregabalin [...] Notes from Pharmacy: From: Alondra Shaffer To: [id number] Sent: 03/19/2023 12:42:04 EST Subject: FW: Medication Management Not Approved: proposed to provider pregabalin (pregabalin 50 mg capsule) TAKE 1 CAPSULE BY MOUTH THREE TIMES DAILY Qty: 90 cap(s) Days Supply: 30 Refills: 0 Substitutions Allowed Route To Pharmacy - [id number] Signed by Alondra Shaffer [facility] 03-01-2023 Evaluation note Encounter Date Diagnosis Assessment Notes Feb, Iron deficiency anemia (ICD-10 - D50.9) The patient states she has had lab work at [facility] 3-4 months ago her labs were reported to be in good standing. We will repeat lab studies now. Feb, Constipation (ICD-10 - K59.00) The patient is using Dicyclomine & probiotics. She needs a refill of Dicyclomine. She has cut the probiotic back to every other day due to some constipation. Return visit here in nine months [facility] Other 11-06-2023 Note From: BRAD DEAN DO To: [facility] Clinical Pool ([facility]); Sent: 02/19/2023 14:15:55 EST Subject: FW: Medication Management Due Date/Time: 02/20/2023 13:35:00 EST Caller Name: RANJAN LAMB; Caller Number: H From: [id number] To: BRAD DEAN DO Sent: February 19, 2023 12:35:47 PM CRIMINALIST Subject: Medication Management Due: February 20, 2023 12:03:57 AM CRIMINALIST On Hold Pending Signature Drug: pregabalin (pregabalin 50 mg oral capsule), 1 cap(s) PO TID Quantity: 90 cap(s) Days Supply: 0 Refills: 0 Substitutions Allowed Notes from Pharmacy: Dispensed Drug: pregabalin (pregabalin 50 mg oral capsule), TAKE 1 CAPSULE BY MOUTH THREE TIMES DAILY Quantity: 90 cap(s) Days Supply: 30 Refills: 0 Substitutions Allowed Notes from Pharmacy: From: JOVANI CONNORS To: [id number] Sent: 02/19/2023 14:35:55 EST Subject: FW: Medication Management Not Approved: duplicate pregabalin (pregabalin 50 mg capsule) TAKE 1 CAPSULE BY MOUTH THREE TIMES DAILY Qty: 90 cap(s) Days Supply: 30 Refills: 0 Substitutions Allowed Route To Pharmacy - [id number] Signed by JOVANI CONNORS [facility]07-31-2023 Evaluation note* Encounter Date Diagnosis Assessment Notes [...] for recheck of hypertension following ER visit. [facility] Other 03-07-2023 Evaluation note* Encounter Date Diagnosis [...] CONTINUE ON DICYCLOMINE, REFILL SENT TO PHARMACY. [facility] Other 01-20-2023 Evaluation note* Encounter Date Diagnosis Assessment Notes Treatment Notes Treatment Clinical Notes Apr, Iron (Fe) deficiency anemia (ICD-10 - D50.9) [facility] Other 09-06-2022 Evaluation note* Encounter Date Diagnosis Assessment Notes Treatment Notes Treatment Clinical Notes Dec, Iron deficiency anemia (ICD-10 - D50.9) CONTINUE IRON DIRECTED RTO 6 MONTHS Dec, Constipation (ICD-10 - K59.00) Dec, Abdominal cramping (ICD-10 - R10.9) CONTINUE DICYCLOMINE FOUR TIMES A DAY [employer] Other 03-03-2022 Evaluation note* Encounter Date Diagnosis Assessment Notes Treatment Notes Treatment Clinical Notes Jun, Iron deficiency anemia (ICD-10 - D50.9) Continue iron Jun, Constipation (ICD-10 - K59.00) Jun, Abdominal cramping (ICD-10 - R10.9) [facility] Other Evaluation noteNo assessment information available [facility] Work Phone: Evaluation noteNo InformationNort [employer] Other [employer] general Narrative - Reported* Type Description Date Medical History HISTORY OF BLEEDING [facility] Medical History bladder prolapse Medical History claudication Surgical History partial hysterectomy-ovaries re main 1974 Surgical History eye surgery 2019 Surgical History colposcopy Surgical History shunts in both legs 2020 Hospitalization History see above Hospitalization History [place]VA[place]back [place] Hospitalization History [facility]LEEDING [facility] Other [facility] general Narrative - Reported* Type Description Date Medical History HISTORY OF BLEEDING [facility] Medical History bladder prolapse Medical History claudication Surgical History partial hysterectomy-ovaries re main 1974 Surgical History eye surgery 2019 Surgical History colposcopy Surgical History shunts in both legs 2020 Hospitalization History see above Hospitalization History [place] Hospitalization History BLEEDING [facility] Hospitalization History ER October 2022 HTN [facility] Other Chief Complaint and Reason for Visit [...] section and content) DATE CREATED AUTHOR 12/21/2021 [facility] DATE CREATED AUTHOR AUTHOR'S ORGANIZ ATION 05/11/2022 [facility] DATE CREATED AUTHOR AUTHOR'S ORGANIZ ATION 07/26/2023 [facility] FOR RECORDS PERTAINING TO PATIENTS [...] BE BASED ON THE PRIMARY CLINICAL RECORDS. [employer] provides no warranty or guarantee of the accuracy or completeness of information in this document.
[2023-08-06] MEDS: LORAZEPAM 2 MG/ML VIAL 0.5 MG IV (21:58)
[2023-08-06 22:10] LABS: Basophils Absolute Auto 0.1 10^3/uL (0.0-0.1); Basophils Percent Auto 1.4 % (0.2-2.0); Eosinophils Absolute Auto 0.1 10^3/uL (0.0-0.7); Eosinophils Percent Auto 1.8 % (0.9-7.0); Hematocrit 38.8 % (36.0-48.0); Hemoglobin 12.5 g/dL (12.0-16.0); Immature Granulocytes Abs Auto 0.01 10^3/uL (0.00-0.03); Immature Granulocytes Pct Auto 0.1 % (0.0-0.5); Lymphocytes Absolute Auto 2.2 10^3/uL (1.2-3.8); Lymphocytes Percent Auto 27.8 % (20.5-60.0); Mean Corpuscular HGB Conc 32.2 g/dL (29.9-35.2); Mean Corpuscular Hemoglobin 27.2 pg (26.7-34.0); Mean Corpuscular Volume 84.5 fL (81.0-99.0); Mean Platelet Volume 10.5 fL (9.5-13.5); Monocytes Absolute Auto 1.1 10^3/uL (0.3-0.8); Neutrophils Absolute Auto 4.3 10^3/uL (1.4-6.5); Neutrophils Percent Auto 54.9 % (43.0-75.0); Platelet Count 410 10^3/uL (150-450); Red Blood Count 4.59 10^6/uL (4.20-5.40); Red Cell Distribution Width 15.3 % (11.0-15.0); White Blood Count 7.9 10^3/uL (4.0-11.0)
--- NOTE | 2023-08-06 22:31 | XR_ITS ---
The [address] [address] Patient Name: RANJAN LAMB MRN: [id number] date: 1940 Sex: F Assigned Patient Location: ED.MAIN Current Patient Location: ER Accession/Order Number: [id number] Exam Date: 08/06/2023 22:50 Report Date: 08/06/2023 23:36 At the request of: ADRIÁN CARDONA Procedure: XR abdomen 1V EXAM: XR abdomen 1V HISTORY: Possible constipation COMPARISON: None. TECHNIQUE: One view of the abdomen was obtained. FINDINGS: There is a nonspecific bowel gas pattern without evidence of bowel obstruction. A supine view is suboptimal for evaluation of intraperitoneal free air though none is seen. No acute osseous abnormality seen. A vascular stent overlies the right hemipelvis. XR/XR abdomen 1V IMPRESSION: 1. Nonspecific bowel gas pattern without evidence of bowel obstruction. Electronically authenticated by: Gabriel IZAGUIRRE Date: 08/06/2023 23:36
[2023-08-06 22:38] LABS: Anion Gap 15.9; BUN Creatinine Ratio 8.9; Calcium 9.8 mg/dL (8.5-10.1); Chloride 100 mmol/L (98-107); Estimated GFR (African America >60 (>=60); Estimated GFR (Non-African Ame >60 (>=60); Glucose 106 mg/dL (74-106); Potassium 3.9 mmol/L (3.5-5.1); Sodium 135 mmol/L (136-145)
[2023-08-06 22:45] LABS: Alanine Aminotransferase 13 U/L (14-59); Albumin Globulin Ratio 1.1; Albumin Level 3.7 g/dL (3.4-5.0); Alkaline Phosphatase 80 U/L (46-116); Amylase 43 U/L (25-115); Aspartate Amino Transferase 16 U/L (15-37); Bilirubin Direct 0.1 mg/dL (0.0-0.2); Bilirubin Total 0.3 mg/dL (0.2-1.0); Globulin 3.4 g/dL; Total Protein 7.1 g/dL (6.4-8.2)
--- NOTE | 2023-08-06 22:49 | PC.NURSE ---
patient reports ongoing anxiety for a while now. states she has discussed this with her physician but he has not prescribed her anything. reports feeling anxious most days. agrees. patient reports she has in the past taken one of her sisters jorje with improvement of symptoms. patient recently was seen in ER for pneumonia and finishes antibiotic therapy tomorrow. patient states sympotoms related to pneumonia have resovled. c/o abdominal cramping. patient reports she has been on antidiarrheals and now has not gone in a couple days
[2023-08-07] VITALS: PULSE 57
[2023-08-07 00:07] LABS: Bilirubin Urine NEGATIVE (NEGATIVE); Blood Urine NEGATIVE (NEGATIVE); Clarity Urine CLEAR (CLEAR); Color Urine LT. YELLOW (YELLOW); Glucose Urine UA NEGATIVE (NEGATIVE); Ketones Urine TRACE mg/dL (NEGATIVE); Leukocyte Esterase Urine NEGATIVE (NEGATIVE); Nitrite Urine NEGATIVE (NEGATIVE); Protein Urine NEGATIVE (NEG/TRACE); Specific Gravity Urine 1.015 (1.005-1.025); Urobilinogen Urine 0.2 EU/dL (0.2-1.0); pH Urine 5.5 (5.0-9.0)
[2023-08-07 00:10] VITALS: PULSE 60
[2023-08-07 00:13] LABS: Bacteria Urine NONE SEEN #/HPF (NONE SEEN); Mucus Urine NONE SEEN (NONE SEEN); RBC Urine NONE SEEN #/HPF (0-2); WBC Urine 0-2 #/HPF (NONE SEEN)
[2023-08-07 00:14] LABS: Amorphous Sediment Urine FEW; Cast Seen? NONE SEEN #/LPF (NONE SEEN); Crystals Seen? None Seen #/HPF (None Seen); Squamous Epithelial Cell Urine MANY #/LPF (NONE/RARE); Urine Culture Indicated NO
[2023-08-07] MEDS: ONDANSETRON 4 MG RAPDIS TABLET SL (00:29)
[2023-08-07 00:30] VITALS: O2SAT 88
[2023-08-07 00:31] VITALS: BP 130/58
[2023-08-07 00:55] VITALS: O2SAT 97
== END 2023-08-07 01:00 | disposition home or self-care (01) ==
PROVIDERS: Emergency Provider Emergency Medicine; PCP Family Medicine
DX: F41.9 Anxiety disorder, unspecified (principal); Z79.899 Other long term (current) drug therapy
CPT/HCPCS: 36415; 74018; 80048; 80076; 81001; 82150; 83690; 85025; 93005; 96374; 99285

== ENCOUNTER 2023-08-25 10:33 | Emergency (ER) | payer MEDICARE, OTHER, SELFPAY ==
[2023-08-25] VITALS (23 sets, daily range): BP systolic 80–151; BP diastolic 47–82; PULSE 54–107; TEMP 36.5; O2SAT 87–100; BMI 22.2
--- OUTSIDE RECORDS SUMMARY | 2023-08-25 11:01 | XMS_ITS | CCD ---
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 [facility] Hospitalization History ER October 2022 HTN [facility] Other Chief Complaint and Reason for Visit [...] section and content) DATE CREATED AUTHOR 12/21/2021 [facility] DATE CREATED AUTHOR AUTHOR'S ORGANIZ ATION 05/11/2022 [facility] DATE CREATED AUTHOR 'S ORGANIZ ATION 08/23/2023 [facility] FOR RECORDS PERTAINING TO PATIENTS WHO ARE [...] BE BASED ON THE PRIMARY CLINICAL RECORDS. [facility]. provides no warranty or guarantee of the accuracy or completeness of information in this document.
--- NOTE | 2023-08-25 11:06 | CT_ITS ---
[place] [id number] Patient Name: RANJAN LAMB MRN: [id number] date: 1940 Sex: F Assigned Patient Location: ER Current Patient Location: Accession/Order Number: [id number] Exam Date: 08/25/2023 11:55 Report Date: 08/25/2023 12:39 At the request of: OMAR RICO Procedure: CT abdomen pelvis w con EXAM: CT abdomen pelvis w con HISTORY: abdominal pain COMPARISON: None. TECHNIQUE: Axial CT imaging was performed through the abdomen and pelvis with intravenous contrast. Multiplanar reformats were performed. Dose reduction techniques were achieved by using automated exposure control and/or adjustment of mA and/or kV according to patient size and/or use of iterative reconstruction technique. FINDINGS: Lung bases: Lung bases are clear. No pleural effusion. GI upper: Moderate to large hiatal hernia. Liver: Hepatic steatosis. Normal size and contour. Gallbladder: No significant abnormality. No cholelithiasis. Biliary system: No intra or extrahepatic biliary ductal dilatation. Spleen: Normal size. Pancreas: Unremarkable. Adrenal glands: Normal adrenal glands. Kidneys/ureters: Small left kidney measuring 7 cm. Normal contours. No hydronephrosis. No nephrolithiasis or ureterolithiasis. Vessels: No aneurysm. Lymph Nodes: No lymphadenopathy. Small bowel: No wall thickening or dilatation. Colon: No wall thickening or dilatation. Sigmoid diverticulosis without evidence of acute diverticulitis. Appendix: No findings of appendicitis. Peritoneal cavity: No free fluid or pneumoperitoneum. Lower : Unremarkable. Bones: No acute bony abnormality. Soft tissues: No acute finding. Additional findings: None. CT/CT abdomen pelvis w con IMPRESSION: Moderate to large hiatal hernia. Hepatic steatosis. Electronically authenticated by: REY VASQUEZ Date: 08/25/2023 12:39
[2023-08-25 11:11] LABS: Basophils Absolute Auto 0.1 10^3/uL (0.0-0.1); Basophils Percent Auto 0.8 % (0.2-2.0); Eosinophils Absolute Auto 0.2 10^3/uL (0.0-0.7); Hematocrit 40.8 % (36.0-48.0); Hemoglobin 12.9 g/dL (12.0-16.0); Immature Granulocytes Abs Auto 0.01 10^3/uL (0.00-0.03); Immature Granulocytes Pct Auto 0.1 % (0.0-0.5); Lymphocytes Absolute Auto 1.7 10^3/uL (1.2-3.8); Lymphocytes Percent Auto 21.9 % (20.5-60.0); Mean Corpuscular HGB Conc 31.6 g/dL (29.9-35.2); Mean Corpuscular Volume 85.5 fL (81.0-99.0); Mean Platelet Volume 10.2 fL (9.5-13.5); Monocytes Percent Auto 12.5 % (1.7-12.0); Neutrophils Percent Auto 62.7 % (43.0-75.0); Platelet Count 401 10^3/uL (150-450); Red Blood Count 4.77 10^6/uL (4.20-5.40); Red Cell Distribution Width 15.8 % (11.0-15.0); White Blood Count 7.9 10^3/uL (4.0-11.0)
[2023-08-25] MEDS: 0.9 % SODIUM CHLORIDE 1,000 ML 250 ML IV (11:13)
--- NOTE | 2023-08-25 11:13 | ED.ABDPAIN1 ---
HPI - Abdominal Pain General Chief Complaint: Abdominal Pain Stated Complaint: accidental overdose Time Seen by Provider: 08/25/23 10:42 Source: patient Mode of arrival: Wheelchair Limitations: no limitations History of Present Illness HPI narrative: 83-year-old female to the emergency department with chief complaint of abdominal pain. Symptoms have been ongoing since early July. reports they've been seen three times for this and no one can figure out what is wrong. They're here today searching for answers to find out if she has a hole in her bowel, needs her gallbladder out, or anything else serious going on. would like her admitted to the hospital to obtain scopes. Patient reports that she has cramping lower abdominal pain every day. She reports it is worse with eating. It is better when taking Bentyl. She saw her family doctor for this and was prescribed Xifaxan which has not made a difference. She denies any nausea or vomiting. She denies any fever, sweats, chills. She reports decreased appetite. She has been drinking Pedialyte to stay hydrated. She has been eating toast. She reports she has not had a bowel movement in at least five days. She has seen gastroenterology in the past and was diagnosed with irritable bowel syndrome. 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 Related Data Home Medications ?Medication ?Instructions ?Recorded ?Confirmed clopidogrel 75 mg tablet 75 mg PO DAILY 10/26/22 08/25/23 dicyclomine 10 mg capsule 10 mg PO .every 4 hours 10/26/22 08/25/23 fexofenadine 180 mg tablet 180 mg PO Q24H 10/26/22 07/31/23 irbesartan 150 mg tablet 150 mg PO DAILY 10/26/22 08/25/23 propranolol 60 mg capsule,24 60 mg PO Q24H 10/26/22 08/25/23 hr,extended release rosuvastatin 5 mg tablet 5 mg PO DAILY 10/26/22 08/25/23 lorazepam 0.5 mg tablet 0.5 mg PO DAILY 08/25/23 08/25/23 rifaximin 550 mg tablet (Xifaxan) 550 mg PO TID 08/25/23 08/25/23 Previous Rx's ?Medication ?Instructions ?Recorded amlodipine 10 mg tablet (Norvasc) 10 mg PO DAILY #14 tabs 10/26/22 pantoprazole 40 mg tablet,delayed 40 mg PO DAILY 6 weeks #42 tabs 08/25/23 release (Protonix) Allergies Allergy/AdvReac Type Severity Reaction Status Date / Time Penicillins Allergy Intermediate Verified 08/25/23 10:48 Review of Systems ROS Status of ROS 10 or more systems reviewed and unremarkable except as noted in history and below Exam Narrative Exam Narrative: VITALS: I have reviewed the triage vital signs. GENERAL: Well developed, well appearing adult in no acute distress. NEURO: Alert and oriented. Moves all extremities. Face is symmetric and expressive. EYES: PERRL. No scleral icterus or conjunctival injection. No discharge. HENT: Normocephalic, atraumatic. Hearing is grossly intact. Nares grossly patent and without discharge. Mucous membranes moist. NECK: No JVD. Patient moves neck without restriction. CARDIO: Rhythm regular. Normal rate. No murmur, rub, or gallop. Pulses equal bilaterally in the upper and lower extremity. No lower extremity edema. PULM: Lungs clear to auscultation in all ruiz. No wheezes, rales, or rhonchi. No conversational dyspnea. No splinting, stridor, or accessory muscle use. GI/: Abdomen is soft and non-tender. No rebound or guarding. Normoactive bowel sounds. EXTREMITIES: Symmetric muscle bulk. No joint swelling. No clubbing, cyanosis, or deformity. SKIN: Warm and dry. Normal turgor. No rash or lesions appreciated. PSYCH: Mood, affect, and interaction is appropriate to the setting. Constitutional Vital Signs, click to edit/add: Last Vital Signs Temp 97.7 F 08/25/23 10:39 Pulse 68 08/25/23 13:40 Resp 20 08/25/23 13:40 BP 151/57 H 08/25/23 14:00 Pulse Ox 98 08/25/23 14:00 O2 Del Method Room Air 08/25/23 10:39 Course Vital Signs Vital signs: Vital Signs Temperature 97.7 F 08/25/23 10:39 Pulse Rate 61 08/25/23 10:39 Respiratory Rate 16 08/25/23 10:39 Blood Pressure 144/57 H 08/25/23 10:39 Pulse Oximetry 97 08/25/23 10:39 Oxygen Delivery Method Room Air 08/25/23 10:39 Temperature 97.7 F 08/25/23 10:39 Pulse Rate 68 08/25/23 13:40 Respiratory Rate 20 08/25/23 13:40 Blood Pressure 151/57 H 08/25/23 14:00 Pulse Oximetry 98 08/25/23 14:00 Oxygen Delivery Method Room Air 08/25/23 10:39 MDM - Abdominal Pain MDM Narrative Medical decision making narrative: 83-year-old female to the emergency department to complain of abdominal pain ongoing for months. Vital stable, the patient is afebrile. Her abdominal examination is benign. Patient reports she is currently in no discomfort. She does not appear dehydrated. I did review her two previous Emergency Room visits. It appears during the 2nd visit there was a minor complaint of some abdominal cramping. She has not received abdominal pain workup nor has she been seen specifically for this abdominal pain in the emergency department. It does appear that she did see her PCP for this. She has not seen her lens fabricating machine tender. Outpatient medications were reviewed in the room with the patient. She is on Bentyl and Xifaxan for her abdominal pain per PCP. We'll order basic labs, lactate, lipase, CT of the abdomen and pelvis. Fluids ordered. She declines pain or nausea medication. Blood work reviewed and noted. No major abnormalities. Her CT scan does show a large hiatal hernia. I discussed the case with Dr. Stanley. Patient live out patient follow-up for likely symptomatic hiatal hernia. She is instructed to consume ensure and maintain near liquid diet. She received further testing and likely operative intervention in the near term. Discussed with patient and she agrees the plan. I also put her on some Protonix. Return precautions were discussed. All questions were answered. The patient was discharged home. Medical Records Attestation: I reviewed the patient's medical records. Lab Data Attestation: I reviewed the patient's lab results. Labs: Lab Results 08/25/23 08/25/23 Range/Units 10:52 12:08 WBC 7.9 (4.0-11.0) 10^3/uL RBC 4.77 (4.20-5.40) 10^6/uL Hgb 12.9 (12.0-16.0) g/dL Hct 40.8 (36.0-48.0) % MCV 85.5 (81.0-99.0) fL MCH 27.0 (26.7-34.0) pg MCHC 31.6 (29.9-35.2) g/dL RDW 15.8 H (11.0-15.0) % Plt Count 401 (150-450) 10^3/uL MPV 10.2 (9.5-13.5) fL Neut % (Auto) 62.7 (43.0-75.0) % Lymph % (Auto) 21.9 (20.5-60.0) % [place] % (Auto) 12.5 H (1.7-12.0) % Eos % (Auto) 2.0 (0.9-7.0) % Baso % (Auto) 0.8 (0.2-2.0) % Neut # (Auto) 5.0 (1.4-6.5) 10^3/uL Lymph # (Auto) 1.7 (1.2-3.8) 10^3/uL [place] # (Auto) 1.0 H (0.3-0.8) 10^3/uL Eos # (Auto) 0.2 (0.0-0.7) 10^3/uL Baso # (Auto) 0.1 (0.0-0.1) 10^3/uL Abs Immat Gran (auto) 0.01 (0.00-0.03) 10^3/uL Imm/Tot Granulo (auto) 0.1 (0.0-0.5) % Sodium 135 L (136-145) mmol/L Potassium 4.0 (3.5-5.1) mmol/L Chloride 100 (98-107) mmol/L Carbon Dioxide 24.5 (21.0-32.0) mmol/L Anion Gap 14.5 BUN 7.0 (7.0-18.0) mg/dL Creatinine 1.08 H (0.55-1.02) mg/dL Est GFR ( Amer) 59 L (>=60) Est GFR (Non-Af Amer) 49 L (>=60) BUN/Creatinine Ratio 6.5 Glucose 122 H (74-106) mg/dL Lactate 1.5 (0.4-2.0) mmol/L Calcium 9.8 (8.5-10.1) mg/dL Total Bilirubin 0.4 (0.2-1.0) mg/dL AST 17 (15-37) U/L ALT 14 (14-59) U/L Alkaline Phosphatase 85 (46-116) U/L Troponin I High Sens 10.5 (4.0-51.3) pg/mL Total Protein 7.6 (6.4-8.2) g/dL Albumin 3.8 (3.4-5.0) g/dL Globulin 3.8 g/dL Albumin/Globulin Ratio 1.0 Lipase 27.0 (16.0-77.0) U/L Urine Color Lt. yellow (YELLOW) Urine Clarity Clear (CLEAR) Urine pH 6.0 (5.0-9.0) Ur Specific [place] <=1.005 A (1.005-1.025) Urine Protein Negative (NEG/TRACE) mg/dL Urine Glucose (UA) Negative (NEGATIVE) mg/dL Urine Ketones Trace A (NEGATIVE) mg/dL Urine Occult Blood Negative (NEGATIVE) Urine Nitrite Negative (NEGATIVE) Urine Bilirubin Negative (NEGATIVE) Urine Urobilinogen 0.2 (0.2-1.0) EU/dL Ur Leukocyte Esterase Negative (NEGATIVE) Imaging Data CT scan - abdomen: Radiologist's impression: ITS Impressions Abdomen/Pelvis CT 08/25/23 11:06 IMPRESSION: Moderate to large hiatal hernia. Hepatic steatosis. Electronically authenticated by: REY VASQUEZ Date: 08/25/2023 12:39 ECG Data Attestation: I personally reviewed and interpreted this ECG as follows: (Sinus rhythm at a rate of sixty-one. No STEMI. Normal QTC.) Discharge Plan Discharge Stand Alone Forms: Portal Instructions Chief Complaint: Abdominal Pain Clinical Impression: Hernia, hiatal Patient Disposition: Home, Self-Care Time of Disposition Decision: 13:44 Condition: Good Mode of Transportation: Private Vehicle Prescriptions / Home Meds: New pantoprazole [Protonix] 40 mg tablet,delayed release (DR/EC) 40 mg PO DAILY 42 Days Qty: 42 0RF No Action clopidogrel 75 mg tablet 75 mg PO DAILY dicyclomine 10 mg capsule 10 mg PO .every 4 hours fexofenadine 180 mg tablet 180 mg PO Q24H irbesartan 150 mg tablet 150 mg PO DAILY propranolol 60 mg capsule,extended release 24 hr 60 mg PO Q24H rosuvastatin 5 mg tablet 5 mg PO DAILY amlodipine [Norvasc] 10 mg tablet 10 mg PO DAILY Qty: 14 0RF Xifaxan 550 mg tablet 550 mg PO TID lorazepam 0.5 mg tablet 0.5 mg PO DAILY Print Language: Vietnamese Instructions: Hiatal Hernia (ED) Additional Instructions: Chew food very well. No large solid food. Drink lots of fluids with eating. 3x ensure or protein shakes daily. Return to the Emergency Department if sudden worsening pain. Referrals: LICHA DEAN [Primary Care Provider] - 1 week Ibrahima Stanley DO [Physician] - 1 week (Call the office Sunday morning to take next available appointment.) Discharge Date/Time: 08/25/23 14:10
[2023-08-25 11:26] LABS: Alanine Aminotransferase 14 U/L (14-59); Albumin Level 3.8 g/dL (3.4-5.0); Alkaline Phosphatase 85 U/L (46-116); Anion Gap 14.5; Aspartate Amino Transferase 17 U/L (15-37); BUN Creatinine Ratio 6.5; Bilirubin Total 0.4 mg/dL (0.2-1.0); Calcium 9.8 mg/dL (8.5-10.1); Carbon Dioxide 24.5 mmol/L (21.0-32.0); Chloride 100 mmol/L (98-107); Estimated GFR (African America 59 (>=60); Estimated GFR (Non-African Ame 49 (>=60); Globulin 3.8 g/dL; Glucose 122 mg/dL (74-106); Sodium 135 mmol/L (136-145); Total Protein 7.6 g/dL (6.4-8.2); Troponin I High Sensitivity 10.5 pg/mL (4.0-51.3)
[2023-08-25 11:29] LABS: Lactate/Lactic Acid 1.5 mmol/L (0.4-2.0)
[2023-08-25 12:27] LABS: Bilirubin Urine NEGATIVE (NEGATIVE); Blood Urine NEGATIVE (NEGATIVE); Clarity Urine CLEAR (CLEAR); Color Urine LT. YELLOW (YELLOW); Glucose Urine UA NEGATIVE (NEGATIVE); Ketones Urine TRACE mg/dL (NEGATIVE); Leukocyte Esterase Urine NEGATIVE (NEGATIVE); Nitrite Urine NEGATIVE (NEGATIVE); Protein Urine NEGATIVE (NEG/TRACE); Specific Gravity Urine <=1.005 (1.005-1.025); Urobilinogen Urine 0.2 EU/dL (0.2-1.0)
[2023-08-25 12:30] LABS: Urine Microscopic Indicated NO
--- NOTE | 2023-08-25 14:28 | ECG_ITS ---
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
== END 2023-08-25 14:10 | disposition home or self-care (01) ==
PROVIDERS: Emergency Provider Student in an Organized Health Care Education/Training Program; PCP Family Medicine
DX: K44.9 Diaphragmatic hernia without obstruction or gangrene (principal); Z79.899 Other long term (current) drug therapy; K76.0 Fatty (change of) liver, not elsewhere classified; R10.9 Unspecified abdominal pain
CPT/HCPCS: 36415; 74177; 80053; 81003; 83605; 83690; 84484; 85025; 93005; 99284; Q9967

== ENCOUNTER 2023-09-20 14:43 | Emergency (ER) | payer MEDICARE, OTHER, SELFPAY ==
[2023-09-20 14:47] VITALS: BP 128/49; PULSE 65; TEMP 36.3; O2SAT 95; BMI 22.7
--- NOTE | 2023-09-20 14:57 | ECG_ITS ---
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
--- OUTSIDE RECORDS SUMMARY | 2023-09-20 14:59 | XMS_ITS | CCD ---
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 Role Phone El Au Unavailable Giovanny, DO [place] Primary Care Provider MD El Au Attending Provider [phone] ROE, DR Niya Dobbins Attending Unavailable ROE, DR Niya Dobbins Consulting Unavailable ROE, DR Niya Dobbins Admitting Unavailable HOUSE, DR SALINAS Primary Care Unavailable HOUSE, DR SALINAS Primary Care Unavailable BECKY, DR KAISER Attending Unavailable BECKY, DR KAISER Consulting Unavailable BECKY, DR KAISER Admitting Unavailable ZIEBER, DR JULIA Dobbins Consulting Unavailable Neda, Vale Unavailable SIVA DUMONT Attending Unavailable HOUSE, BRAD Cui Attending Unavailable HOUSE, BRAD P Primary Care Unavailable HOUSE, BRAD Cui Attending Unavailable HOUSE, BRAD P Primary Care Unavailable HOUSE, BRAD P Primary Care Unavailable HOUSE, BRAD P Attending Unavailable HOUSE, BRAD P Primary Care Unavailable Johan Romo MD Attending Unavailable HOUSE, BRAD P Primary Care Unavailable Johan Romo MD Attending Unavailable HOUSE, BRAD P Primary Care Unavailable Johan Romo MD Attending Unavailable HOUSE, BRAD P Primary Care Unavailable Demetrius BONILLA, Johan Puente Attending Unavailable HOUSE, BRAD P Primary Care Unavailable Johan Romo MD Attending Unavailable HOUSE, BRAD P Primary Care Unavailable HOUSE, BRAD P Attending Unavailable HOUSE, BRAD P Primary Care Unavailable Allergies Allergy Classification Reported Allergen(s) Allergy Type Date of Onset Reaction(s) Facility (8 sources) Iodine Drug Allergy 9 [facility] (7 sources) Penicillin G Drug Allergy [facility] Other (2 sources) Penicillins; Translations: [Penicillins] Allergy to substance 5 Hives [facility] (1 source) Povidone-Iodine Drug Allergy 9 [facility] (1 source) soap Allergy to substance 9 [facility] (2 sources) Povidone-Iodine; Translations: [Betadine] Drug Allergy 5 [facility] (1 source) Penicillin; Translations: [penicillin] Drug Allergy [facility] Repository Medications Current Medications Medication Drug [...] 1 tablet by mouth once daily Vitamin W37-[id number] Acid Active 1 TAB PO Daily September [...] and visceral atherosclerosis (5 sources) Atherosclerosis of [place] arteries of extremities with intermittent claudication, bilateral legs; Translations: [Atherosclerosis of [place] arteries of extremities with intermittent claudication, unspecified extremity] Onset: Chronic Residual codes; unclassified (7 sources) Body mass index 20-24 - normal; Translations: [Body mass index (BMI) 21.0-21.9, adult] Episodic Past or Other Problems Problem Classification Problem Date Documented Da te Episodic/Chronic Unclassified (1 source) Suspected COVID-19 virus infection Z20.822 Results Test Name Value Interpretation Reference Range Facility Electrocardiogram-EKGon 07-16 Electrocardiogram-EK G [id number] #1.00[facility] - Other Lab Resultson Lab - Other Lab Results [id number] [address] Outside Recordson 08-06-2023 Outside Records [id number] [address] [place] [address] Rad - Other Radiology Report on 08-06-2023 Rad - Other Radiology Report [id number] [address] [place] [address] Miscellaneouson 2023 Miscellaneous [id number] #1.00[facility] Outside Recordson 12-05-2022 Outside Records [id number] 6[address] [place] [address] Patient Handouton 12-05-2022 Patient Handout [id number] 4#1.00[facility] Patient Handout [id number] 4#[address] [place] [address] COVID Quick Testingon 2022 Result Negative [facility] Other CBC AUTO DIFFon 05-09-2022 BASO # 0.1 103/ul Normal 0.0-0.1 [facility] Comment on above: Performed By: #### C BC #### [facility] [address] [address] [address] Sadaf Canela Basophils/100 WBC (Bld) 0.8 % Normal 0.2-2.0 [facility] Comment on above: Performed By: #### C BC #### [facility] [address] [address] [address] Sadaf Canela EO # 0.2 103/ul Normal 0.0-0.7 [facility] Comment on above: Performed By: #### C BC #### [facility] [address] [place] [address] Dr. Sadaf Canela Eosinophils/100 WBC (Bld) 2.1 % Normal 0.9-7.0 [facility] Comment on above: Performed By: #### C BC #### [facility] [address] [place] [address] Dr. Sadaf Canela Erythrocyte distribution width (RBC) [Ratio] 14.6 % Normal 11.0-15.0 [facility] Comment on above: Performed By: #### C BC #### [facility] [address] [place] [address] Dr. Sadaf Canela Hematocrit (Bld) [Volume fraction] 40.4 % Normal 36.0-48.0 [facility] Comment on above: Performed By: #### C BC #### [facility] [address] [place] [address] Dr. Sadaf Canela Hemoglobin (Bld) [Mass/Vol] 12.6 g/dL Normal 12.0-16.0 [facility] Comment on above: Performed By: #### C BC #### [facility] [address] [place] [address] Dr. Sadaf Canela IG # 0.01 10e3/ul Normal 0.00-0.03 [facility] Comment on above: Performed By: #### C BC #### [facility] [address] [place] [address] Dr. Sadaf Canela IG % 0.1 % Normal 0.0-0.5 [facility] Comment on above: Performed By: #### C BC #### [facility] [address] [address] [address] Sadaf Canela LYMPH # 1.6 103/ul Normal 1.2-3.8 [facility] Comment on above: Performed By: #### C BC #### [facility] [address] [address] [address] Sadaf Canela Lymphocytes/100 WBC (Bld) 22.2 % Normal 20.5-60.0 [facility] Comment on above: Performed By: #### C BC #### [facility] [address] [place] [address] Dr. Sadaf Canela MANUAL DIFF REQ NO Normal [facility] Comment on above: Performed By: #### C BC #### [facility] [address] [place] [address] Dr. Sadaf Canela MCH (RBC) [Entitic mass] 27.6 pg Normal 26.7-34.0 [facility] Comment on above: Performed By: #### C BC #### [facility] [address] [place] [address] Dr. Sadaf Canela MCHC (RBC) [Mass/Vol] 31.2 g/dL Normal 29.9-35.2 [facility] Comment on above: Performed By: #### C BC #### [facility] [address] [place] [address] Dr. Sadaf Canela MCV (RBC) [Entitic vol] 88.4 fL Normal 81.0-99.0 [facility] Comment on above: Performed By: #### C BC #### [facility] [address] [place] [address] Dr. Sadaf Canela MONO # 0.9 103/ul Critically high 0.3-0.8 [facility] Comment on above: Performed By: #### C BC #### [facility] [address] [place] [address] Dr. Sadaf Canela Monocytes/100 WBC (Bld) 12.4 % Critically high 1.7-12.0 [facility] Comment on above: Performed By: #### C BC #### [facility] [address] [place] [address] Dr. Sadaf Canela NEUT # 4.5 103/ul Normal 1.4-6.5 [facility] Comment on above: Performed By: #### C BC #### [facility] [address] [place] [address] Dr. Sadaf Canela Neutrophils/100 WBC (Bld) 62.4 % Normal 43.0-75.0 [facility] Comment on above: Performed By: #### C BC #### [facility] [address] [place] [address] Dr. Sadaf Canela Platelet mean volume (Bld) [Entitic vol] 10.2 fL Normal 9.5-13.5 [facility] Comment on above: Performed By: #### C BC #### [facility] [address] [place] [address] Dr. Sadaf Canela PLT 351 103/ul Normal 150-450 [facility] Comment on above: Performed By: #### C BC #### [facility] [address] [place] [address] Dr. Sadaf Canela RBC 4.57 106/ul Normal 4.20-5.40 [facility] Comment on above: Performed By: #### C BC #### [facility] [address] [place] [address] Dr. Sadaf Canela WBC 7.2 103/ul Normal 4.0-11.0 [facility] Comment on above: Performed By: #### C BC #### [facility] [address] [place] [address] Dr. Sadaf Canela FERRITINon 05-09-2022 Ferritin [Mass/Vol] 19.0 ng/mL Normal 8.0-252.0 [facility] Comment on above: Performed By: #### F ERR #### [facility] [address] [place] [address] Dr. Sadaf Canela Blood hemoglobin measurement (mass/volume)Ordered By: El Au on 12-20-2021 Hemoglobin (Bld) [Mass/Vol] 13.4 g/dL 11.8-15.4 [facility] Hematocrit Auto (Bld) [Volum e fraction]Ordered By: El Au on 12-20-2021 Hematocrit (Bld) [Volume fraction] 41.1 % 34.0-46.4 [facility] Hemoglobin and Hematocriton 12-20-2021 Hematocrit (Bld) [Volume fraction] 41.1 % Normal 34.0-46.4 [facility] Comment on above: Order Comment: Reaso n for Exam Iron deficiency anemia Result Comment: PERF ORMED BY: [place] [address] PATHOLOGIST COMPUTER SYSTEM VALIDATION SPECIALIST HOLLIE BONNER M.D. Performed By: #### H H #### [facility] [address] [place] [address] Hemoglobin (Bld) [Mass/Vol] 13.4 g/dL Normal 11.8-15.4 [facility] Comment on above: Order Comment: Reaso n for Exam Iron deficiency anemia Performed By: #### H H #### [facility] [address] [place] [address] Hematocrit (Bld) [Volume fraction] 41.100 % Normal 34.0-46.4 % [facility] Other Hemoglobin (Bld) [Mass/Vol] 13.022690 g/dL Normal 11.8-15.4 g/dL [facility] Other CREATININEon 08-30-2021 Creatinine [Mass/Vol] 0.82 mg/dL Normal 0.55-1.02 [facility] Comment on above: Performed By: #### C HANNAH #### [facility] [address] [address] [address] Sadaf Canela EGFR-AF EQUATORIAL GUINEAN >60 Normal >=60 [facility] Comment on above: Performed By: #### C HANNAH #### [facility] [address] [place], [place] [address] Dr. Sadaf Canela EGFR-NON AF EQUATORIAL GUINEAN >60 Normal >=60 [facility] Comment on above: Performed By: #### C HANNAH #### [facility] [address] [address] [address] Sadaf Canela CTA ABD MALENA WWO [...] JULIA ECHEVARRIA Date: 2021-08-30 15:07 Normal [facility] Complete Blood Count Auto Di ffon 06-16-2021 Basophils (Bld) [#/Vol] 0.1 10*3/uL Normal 0.0-0.2 [facility] Other Comment on above: Order Comment: Reaso n for Exam Iron deficiency anemia Result Comment: PERF ORMED BY: [place] [address] PATHOLOGIST COMPUTER SYSTEM VALIDATION SPECIALIST HOLLIE BONNER M.D. Performed By: #### C BC #### [address] Basophils/100 WBC (Bld) 1.3 % Normal . [facility] Other Comment on above: Order Comment: Reaso n for Exam Iron deficiency anemia Performed By: #### C BC #### [place] [address] [place] Eosinophils (Bld) [#/Vol] 0.2 10*3/uL Normal 0.0-0.45 [facility] Other Comment on above: Order Comment: Reaso n for Exam Iron deficiency anemia Performed By: #### C BC #### [place] [address] [place] Eosinophils/100 WBC (Bld) 1.7 % Normal . [facility] Other Comment on above: Order Comment: Reaso n for Exam Iron deficiency anemia Performed By: #### C BC #### [address] Erythrocyte distribution width (RBC) [Ratio] 14.5 % Normal 11.9-15.3 [facility] Other Comment on above: Order Comment: Reaso n for Exam Iron deficiency anemia Performed By: #### C BC #### [address] Hematocrit (Bld) [Volume fraction] 41.8 % Normal 34.0-46.4 [facility] Other Comment on above: Order Comment: Reaso n for Exam Iron deficiency anemia Performed By: #### C BC #### [address] Hemoglobin (Bld) [Mass/Vol] 13.6 g/dL Normal 11.8-15.4 [facility] Other Comment on above: Order Comment: Reaso n for Exam Iron deficiency anemia Performed By: #### C BC #### [address] Lymphocytes (Bld) [#/Vol] 2.1 10*3/uL Normal 1.00-4.8 [facility] Other Comment on above: Order Comment: Reaso n for Exam Iron deficiency anemia Performed By: #### C BC #### [address] Lymphocytes/100 WBC (Bld) 23.5 % Normal . [facility] Other Comment on above: Order Comment: Reaso n for Exam Iron deficiency anemia Performed By: #### C BC #### [address] MCH (RBC) [Entitic mass] 28.9 pg Normal 24.7-34.3 [facility] Other Comment on above: Order Comment: Reaso n for Exam Iron deficiency anemia Performed By: #### C BC #### [address] MCV (RBC) [Entitic vol] 88.9 fL Normal 80-100 [facility] Other Comment on above: Order Comment: Reaso n for Exam Iron deficiency anemia Performed By: #### C BC #### [facility] [address] Mean Corpuscular HGB Conc 32.5 g/dL Normal 32.0-35.0 [facility] Comment on above: Order Comment: Reaso n for Exam Iron deficiency anemia Performed By: #### C BC #### [address] [place] [id number] [facility] Monocytes (Bld) [#/Vol] 1.1 10*3/uL High 0.0-0.8 [email or web address] [facility] [employer] Other Comment on above: Order Comment: Reaso n for Exam Iron deficiency anemia Performed By: #### C BC #### [address] Monocytes/100 WBC (Bld) 12.1 % Normal . [facility] Other Comment on above: Order Comment: Reaso n for Exam Iron deficiency anemia Performed By: #### C BC #### [address] Neutrophils (Bld) [#/Vol] 5.5 10*3/uL Normal 1.8-7.7 [facility] Other Comment on above: Order Comment: Reaso n for Exam Iron deficiency anemia Performed By: #### C BC #### [address] [place] [id number] [facility] Neutrophils/100 WBC (Bld) 61.4 % Normal . [facility] Other Comment on above: Order Comment: Reaso n for Exam Iron deficiency anemia Performed By: #### C BC #### [address] [id number] [place] Nucleated RBC/100 WBC (Bld) [Ratio] 0.0 % Normal 0-0.5 [facility] Comment on above: Order Comment: Reaso n for Exam Iron deficiency anemia Performed By: #### C BC #### [place] [address] [place] Platelet mean volume (Bld) [Entitic vol] 7.9 fL Normal 6.3-10.7 [facility] Other Comment on above: Order Comment: Reaso n for Exam Iron deficiency anemia Performed By: #### C BC #### [facility] [address] Platelets (Bld) [#/Vol] 337 10*3/uL Normal 150-450 [facility] Other Comment on above: Order Comment: Reaso n for Exam Iron deficiency anemia Performed By: #### C BC #### [facility] [id number] [facility] RBC (Bld) [#/Vol] 4.71 10*6/uL Normal 3.60-5.00 [facility] [employer] Other Comment on above: Order Comment: Reaso n for Exam Iron deficiency anemia Performed By: #### C BC #### [facility] [address] [id number] [place] WBC (Bld) [#/Vol] 8.9 10*3/uL Normal 4.5-11.0 [facility] [employer] Other Comment on above: Order Comment: Reaso n for Exam Iron deficiency anemia Performed By: #### C BC #### [facility] [address] [id number] [facility] MCH (RBC) [Entitic mass] 32.5 pg 32.0-35.0 [email or web address] [facility] [employer] Other Complete Blood Count Auto Diff 8.9 4.5-11.0 [email or web address] [facility] [employer] Other Complete Blood Count Auto Diff 0.0 0-0.5 [facility] Other Vital Signs Date Time Vital Sign Value Performing Clinician Facility 03-01-2023 14:45-0500 Body height 151.13 cm El Au Other [facility] Other 03-01-2023 14:45-0500 Body mass index (BMI) [Ratio] 25.62 kg/m2 El Au Other [facility] Other 03-01-2023 14:45-0500 Body weight 58.51 kg El Au Other [facility] Other 11-13-2022 14:55-0400 Body height 151.13 cm Vale Rde Other [facility] Other 11-13-2022 14:55-0400 Body mass index (BMI) [Ratio] 25.74 kg/m2 Vale Red Other [facility] Other 11-13-2022 14:55-0400 Body temperature 96.8 [degF] Vale Red Other [facility] Other 11-13-2022 14:55-0400 Body weight 58.79 kg Vale Red Other [facility] Other 11-13-2022 14:55-0400 Diastolic blood pressure 59 mm[Hg] Vale Red Other [facility] Other 11-13-2022 14:55-0400 Respiratory rate 18 /min Vale Red Other [facility] Other 11-13-2022 14:55-0400 SaO2% (BldA) [Mass fraction] 98 % Vale Red Other [facility] Other 11-13-2022 14:55-0400 Systolic blood pressure 155 mm[Hg] Vale Red Other [facility] Other 06-20-2022 13:00-0500 Body height 151.13 cm El Au Other [facility] Other 06-20-2022 13:00-0500 Body mass index (BMI) [Ratio] 22.84 kg/m2 El Au Other [facility] Other 06-20-2022 13:00-0500 Body weight 52.16 kg El Au Other [facility] Other 06-20-2022 13:00-0500 Diastolic blood pressure 103 mm[Hg] El Au Other [facility] Other 06-20-2022 13:00-0500 Systolic blood pressure 208 mm[Hg] El Au Other [facility] Other 12-20-2021 14:00-0400 Body height 151.13 cm El Au Other [facility] Other 12-20-2021 14:00-0400 Body mass index (BMI) [Ratio] 24.62 kg/m2 El Au Other [facility] Other 12-20-2021 14:00-0400 Body weight 56.25 kg El Au Other [facility] Other 12-20-2021 14:00-0400 Diastolic blood pressure 83 mm[Hg] El Au Other [facility] Other 12-20-2021 14:00-0400 Systolic blood pressure 159 mm[Hg] El Au Other [facility] Other 06-16-2021 14:00-0500 Body height 151.13 cm El Roe Other [facility] Other 06-16-2021 14:00-0500 Body mass index (BMI) [Ratio] 26.61 kg/m2 El Valdezack Other [facility] Other 06-16-2021 14:00-0500 Body weight 60.78 kg El Roe Other [facility] Other Encounters Encounter Date Encounter Type Care Provider Facility Start: 09-13-2023 End: 09-13-2023 ambulatory BRAD P HOUSE Facility: [facility] Start: 09-06-2023 End: 09-06-2023 ambulatory BRAD P HOUSE Facility: [facility] Start: 08-27-2023 End: 08-27-2023 ambulatory SIVA DUMONT Not Available Start: 08-07-2023 End: 08-07-2023 ambulatory BRAD P HOUSE Facility: [facility] Start: 07-25-2023 End: 07-25-2023 ambulatory BRAD P HOUSE Facility: [facility] Start: 06-05-2023 End: 06-05-2023 ambulatory BRAD P HOUSE Facility: [facility] Start: 05-22-2023 End: 05-22-2023 ambulatory Johan Romo MD Facility: [facility] Start: 03-05-2023 End: 03-05-2023 ambulatory Johan Romo MD Facility: [facility] Start: 03-01-2023 End: 03-01-2023 ambulatory El Au Other [facility] Other Start: 03-01-2023 Office outpatient visit 15 minutes [facility] Start: 01-17-2023 End: 01-17-2023 ambulatory Johan Romo MD Facility: [facility] Start: 12-11-2022 End: 12-11-2022 ambulatory Johan Romo MD Facility:[facility] Start: 11-30-2022 End: 11-30-2022 ambulatory Johan Romo MD Facility:[facility] Start: 11-13-2022 End: 11-13-2022 ambulatory Vale Red Other [facility] Other Start: 11-13-2022 Office outpatient visit 15 minutes Vale Red [facility] Start: 06-20-2022 End: 06-20-2022 ambulatory El Au Other [facility] Other Start: 06-20-2022 Office outpatient visit 15 minutes El Au [facility] Start: 05-17-2022 End: 05-17-2022 ambulatory El Au Other [facility] Other Start: 05-17-2022 Telephone encounter El baker [facility] Start: 05-09-2022 End: 05-10-[address] Niya AU Facility:[facility] Start: 05-05-2022 End: 05-05-2022 ambulatory El Au Other [facility] Other Start: 05-05-2022 Telephone encounter El baker [facility] Start: 12-20-2021 End: 12-20-2021 ambulatory El Au Other [facility] Other Start: 12-20-2021 Office outpatient visit 15 minutes El Au [facility] Start: 12-20-2021 End: 12-20-2021 Patient encounter procedure DO Brad Dean Work Phone: [facility] Start: 08-30-2021 End: 08-31-[address] BRAD DEAN Facility: Start: 06-16-2021 End: 06-16-2021 ambulatory El Au Other [facility] Other Start: 06-16-2021 Office outpatient visit 15 minutes [facility] Payers Date Payer Category Payer Medicare [id number] 1957 Medicare [id number] 2.1 [id number] 1957 Private Health Insurance [id number] 1942 Unknown [id number] 2.16.84 [id number] 1942 Unknown [id number] 2.16.84 [id number] 1942 Unknown [id number] 2.16.84 0.1.913455.3.579.2.1259 1942 Unknown [id number] 2.16.8 40.1.645977.3.579.2.718 1942 Unknown [id number] 2.16.8 40.1.627052.3.579.2.718 1942 Unknown [id number] 2.16.8 40.1.729791.3.579.2.718 1942 Unknown [id number] 2.16.8 40.1.864186.3.579.2.718 1942 Unknown [id number] 2.16.8 40.1.822348.3.579.2.718 1942 Unknown [id number] 2.16.8 40.1.113300.3.579.2.718 1942 Unknown [id number] 2.16.8 [id number] 1942 Unknown [id number] 2.16.8 40.1.334777.3.579.2.718 1942 Unknown [id number] 2.16.8 [id number] Self-pay Self Pay [id number] Social History Date Type Detail Facility Unknown if ever smoked [facility] Other Sex Assigned At Sex Assigned At Bir th [facility] Other Start: 12-03-2018 Tobacco smoking status NHIS Smoker (finding) [facility] Start: 1940 Sex Assigned At Female F [facility] Medical Equipment Procedure Code Equipment Code Equipment Origin al Text Equipment Identifier Dates Capsule endoscopy, for patency of lumen evaluation CAPSULE PILLCAM SB FDA Start: 10-03-2018 Clinical Notes 06-16-2021 to 09-19-2023 Note Date & Type Note Facility 09-19-2023 Note - From: BRAD DEAN DO To: [facility] Clinical Pool (MAGR_OH); Sent: 09/19/2023 07:29:43 EDT Subject: FW: Medication Management Due Date/Time: 09/19/2023 19:50:00 EDT Caller Name: RANJAN LAMB; Caller Number: H From: [id number] To: BRAD DEAN DO Sent: September 18, 2023 6:50:54 PM CDT Subject: Medication Management Due: September 19, 2023 12:04:29 AM CDT On Hold Pending Signature Drug: LORazepam (LORazepam 0.5 mg oral tablet), 1 tab(s) Oral BID,x30 day(s) Quantity: 60 tab(s) Days Supply: 0 Refills: 0 Substitutions Allowed Notes from Pharmacy: Dispensed Drug: LORazepam (LORazepam 0.5 mg oral tablet), TAKE 1 TABLET BY MOUTH TWICE DAILY Quantity: 60 tab(s) Days Supply: 30 Refills: 0 Substitutions Allowed Notes from Pharmacy: From: Kylee Flores To: [id number] Sent: 09/19/2023 08:12:48 EDT Subject: FW: Medication Management Not Approved: Refill not appropriate, proposal sent to provider LORazepam (lorazepam 0.5 mg tablet) TAKE 1 TABLET BY MOUTH TWICE DAILY Qty: 60 tab(s) Days Supply: 30 Refills: 0 Substitutions Allowed Route To Pharmacy - [id number] Signed by Kylee Flores [facility] 09-13-2023 Note Entered by TAYLOR DEAN DO on September 13, 2023 21:04:28 EDT From: BRAD DEAN DO To: [id number] Sent: 09/13/2023 21:04:28 EDT Subject: Medication Management Approved with modifications: fexofenadine (fexofenadine 180 mg tablet) TAKE 1 TABLET BY MOUTH DAILY Qty: 30 tab(s) Days Supply: 30 Refills: 5 Substitutions Allowed Route To Pharmacy - [id number] Patient matched by BRAD DEAN DO on 09/13/2023 21:03:40 EDT From: [id number] To: BRAD DEAN DO Sent: September 13, 2023 3:42:27 PM CDT Subject: Medication Management Due: September 14, 2023 12:13:46 AM CDT On Hold Pending [facility]: fexofenadine (fexofenadine 180 mg oral tablet), Take 1 Tablet(s) 1 time a day Quantity: 30 tab(s) Days Supply: 30 Refills: 10 Substitutions Allowed Notes from Pharmacy: Dispensed Drug: fexofenadine (fexofenadine 180 mg oral tablet), TAKE 1 TABLET BY MOUTH DAILY Quantity: 30 tab(s) Days Supply: 30 Refills: 11 Substitutions Allowed Notes from Pharmacy: [facility] 08-15-2023 Note Entered by TAYLOR DEAN DO on August 15, 2023 10:36:59 EDT From: BRAD DEAN DO To: [id number] Sent: 08/15/2023 10:36:59 EDT Subject: Medication Management Submitted: Complete:hyoscyamine (Levsin 0.125 mg oral tablet) Signed by BRAD DEAN DO 08/15/2023 10:36:00 EDT Approved with modifications: hyoscyamine (hyoscyamine sulfate 0.125 mg tablet) TAKE 1 TABLET BY MOUTH THREE TIMES DAILY Qty: 30 tab(s) Days Supply: 10 Refills: 2 Substitutions Allowed Route To Pharmacy - [id number] From: [id number] To: BRAD DEAN DO Sent: August [...] Refills: 0 Substitutions Allowed Notes from Pharmacy: [facility] 06-18-2023 Note - From: BRAD DEAN DO To: [facility] [place] Sent: 06/18/2023 07:52:55 EST Subject: FW: Medication Management Due Date/Time: 06/18/2023 14:38:00 EST Caller Name: RANJAN LAMB; Caller Number: H From: [id number] To: BRAD DEAN DO Sent: June 17, 2023 1:38:41 PM 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 WORKER Subject: Medication Management Due: June 18, 2023 12:02:44 AM SKID WORKER On Hold Pending [facility]: pregabalin (pregabalin [...] Refills: 0 Substitutions Allowed Notes from Pharmacy: [facility] 03-19-2023 Note - From: BRAD DEAN DO To: [facility] [place] Sent: 03/19/2023 07:45:47 EST Subject: FW: Medication Management Due Date/Time: 03/19/2023 09:48:00 EST Caller Name: RANJAN LMAB; Caller Number: H From: [id number] To: BRAD DEAN DO Sent: March 16, 2023 8:48:01 AM SKID WORKER Subject: Medication Management Due: March 17, 2023 12:10:40 AM SKID WORKER On Hold Pending [facility]: pregabalin (pregabalin [...] Notes from Pharmacy: From: Alondra Shaffer To: [id number] Sent: 03/19/2023 12:42:04 EST Subject: FW: Medication Management Not Approved: proposed to provider pregabalin (pregabalin 50 mg capsule) TAKE 1 CAPSULE BY MOUTH THREE TIMES DAILY Qty: 90 cap(s) Days Supply: 30 Refills: 0 Substitutions Allowed Route To Pharmacy - [id number] Signed by Alondra Shaffer [facility] 03-01-2023 Evaluation note Encounter Date Diagnosis Assessment Notes Feb, Iron deficiency anemia (ICD-10 - D50.9) The patient states she has had lab work at [facility] 3-4 months ago her labs were reported to be in good standing. We will repeat lab studies now. Feb, Constipation (ICD-10 - K59.00) The patient is using Dicyclomine & probiotics. She needs a refill of Dicyclomine. She has cut the probiotic back to every other day due to some constipation. Return visit here in nine months [facility] Other 11-06-2023 Note From: BRAD DEAN DO To: [facility] Clinical [facility] [place] Sent: 02/19/2023 14:15:55 EST Subject: FW: Medication Management Due Date/Time: 02/20/2023 13:35:00 EST Caller Name: RANJAN LAMB; Caller Number: H From: [id number] To: BRAD DEAN DO Sent: February 19, 2023 12:35:47 PM SKID WORKER Subject: Medication Management Due: February 20, 2023 12:03:57 AM SKID WORKER On Hold Pending [facility]: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
[2023-09-20] MEDS: DIPHENHYDRAMINE HCL 50 MG/ML VIAL 12.5 MG IV (15:11)
[2023-09-20] MEDS: 0.9 % SODIUM CHLORIDE 1,000 ML 500 ML IV (15:11)
[2023-09-20] MEDS: ONDANSETRON PF 4 MG/2 ML VIAL IV (15:11)
--- NOTE | 2023-09-20 15:11 | CT_ITS ---
The [address] [address] Patient Name: RANJAN LAMB MRN: [id number] date: 1940 Sex: F Assigned Patient Location: ER Current Patient Location: ER Accession/Order Number: [id number] Exam Date: 09/20/2023 15:32 Report Date: 09/20/2023 15:54 At the request of: RAIZA BARBOUR Procedure: CT head/brain wo con EXAMINATION: CT head/brain wo con HISTORY: dizziness COMPARISON: CT head 11/16/2018 TECHNIQUE: Axial CT images were obtained without IV contrast. Dose reduction techniques were achieved by using automated exposure control and/or adjustment of mA and/or kV according to patient size and/or use of iterative reconstruction technique. FINDINGS: BRAIN: No edema, hemorrhage, mass, acute infarction, or inappropriate atrophy. CSF SPACES: No hydrocephalus, subarachnoid hemorrhage, or mass. Appropriate for age. SKULL: No fracture, mass, or other significant visible lesion. SINUSES: No significant mucosal thickening or fluid on the limited views. ORBITS: No appreciable abnormality on the limited views. OTHER: Negative CT/CT head/brain wo con IMPRESSION: 1. No intracranial hemorrhage, appreciable acute abnormality, or suspicious findings to account for patient's symptoms. 2. Grossly stable, age consistent chronic changes. Electronically authenticated by: JULIA ECHEVARRIA Date: 09/20/2023 15:54
[2023-09-20 15:18] LABS: Basophils Absolute Auto 0.1 10^3/uL (0.0-0.1); Basophils Percent Auto 1.1 % (0.2-2.0); Eosinophils Absolute Auto 0.2 10^3/uL (0.0-0.7); Eosinophils Percent Auto 3.1 % (0.9-7.0); Hematocrit 39.9 % (36.0-48.0); Hemoglobin 12.6 g/dL (12.0-16.0); Lymphocytes Percent Auto 27.5 % (20.5-60.0); Mean Corpuscular HGB Conc 31.6 g/dL (29.9-35.2); Mean Corpuscular Hemoglobin 26.9 pg (26.7-34.0); Mean Corpuscular Volume 85.3 fL (81.0-99.0); Mean Platelet Volume 10.7 fL (9.5-13.5); Monocytes Absolute Auto 1.1 10^3/uL (0.3-0.8); Monocytes Percent Auto 15.4 % (1.7-12.0); Neutrophils Absolute Auto 3.8 10^3/uL (1.4-6.5); Neutrophils Percent Auto 52.9 % (43.0-75.0); Platelet Count 371 10^3/uL (150-450); Red Blood Count 4.68 10^6/uL (4.20-5.40); Red Cell Distribution Width 16.2 % (11.0-15.0); White Blood Count 7.1 10^3/uL (4.0-11.0)
[2023-09-20 15:40] VITALS: BP 109/43; PULSE 57; O2SAT 95
[2023-09-20 15:51] LABS: Alanine Aminotransferase 15 U/L (14-59); Albumin Globulin Ratio 1.1; Alkaline Phosphatase 78 U/L (46-116); Aspartate Amino Transferase 14 U/L (15-37); BUN Creatinine Ratio 8.6; Bilirubin Total 0.3 mg/dL (0.2-1.0); Calcium 9.7 mg/dL (8.5-10.1); Carbon Dioxide 25.1 mmol/L (21.0-32.0); Chloride 102 mmol/L (98-107); Estimated GFR (African America 54 (>=60); Estimated GFR (Non-African Ame 45 (>=60); Globulin 3.8 g/dL; Glucose 109 mg/dL (74-106); Potassium 4.1 mmol/L (3.5-5.1); Sodium 139 mmol/L (136-145); Total Protein 7.8 g/dL (6.4-8.2)
[2023-09-20 15:52] LABS: Troponin I High Sensitivity 7.1 pg/mL (4.0-51.3)
[2023-09-20 16:13] LABS: Bilirubin Urine NEGATIVE (NEGATIVE); Blood Urine NEGATIVE (NEGATIVE); Clarity Urine CLEAR (CLEAR); Color Urine LT. YELLOW (YELLOW); Glucose Urine UA NEGATIVE (NEGATIVE); Ketones Urine NEGATIVE (NEGATIVE); Leukocyte Esterase Urine NEGATIVE (NEGATIVE); Nitrite Urine NEGATIVE (NEGATIVE); Protein Urine NEGATIVE (NEG/TRACE); Specific Gravity Urine <=1.005 (1.005-1.025); Urine Microscopic Indicated NO; Urobilinogen Urine 0.2 EU/dL (0.2-1.0)
--- NOTE | 2023-09-20 16:33 | ED_ITS ---
HPI - Dizziness General Chief Complaint: Dizziness Stated Complaint: NAUSEA, DIZZINESS Time Seen by Provider: 09/20/23 14:45 Source: patient Mode of arrival: walk-in History of Present Illness HPI Narrative: The patient presented to us with a dizziness for the last few hours it started at 7:30 AM, patient mentioned that she started meclizine but it did not help she have a history of vertigo, no upper or lower extremity weakness no other complaints Patient denies any nausea vomiting fever chills or any headache ,she was able to ambulate with no difficulty in the room going to the bathroom Related Data Home Medications ?Medication ?Instructions ?Recorded ?Confirmed clopidogrel 75 mg tablet 75 mg PO DAILY 10/26/22 08/25/23 dicyclomine 10 mg capsule 10 mg PO .every 4 hours 10/26/22 08/25/23 irbesartan 150 mg tablet 150 mg PO DAILY 10/26/22 08/25/23 propranolol 60 mg capsule,24 60 mg PO Q24H 10/26/22 08/25/23 hr,extended release rosuvastatin 5 mg tablet 5 mg PO DAILY 10/26/22 08/25/23 lorazepam 0.5 mg tablet 0.5 mg PO DAILY 08/25/23 08/25/23 rifaximin 550 mg tablet (Xifaxan) 550 mg PO TID 08/25/23 08/25/23 Previous Rx's ?Medication ?Instructions ?Recorded amlodipine 10 mg tablet (Norvasc) 10 mg PO DAILY #14 tabs 10/26/22 pantoprazole 40 mg tablet,delayed 40 mg PO DAILY 6 weeks #42 tabs 08/25/23 release (Protonix) diphenhydramine HCl 25 mg capsule 25 mg PO Q8H PRN motion sickness 09/20/23 (Benadryl) #7 caps ondansetron 4 mg disintegrating 4 mg PO Q8H PRN nausea and 09/20/23 tablet vomiting and vertigo #7 tabs Allergies Allergy/AdvReac Type Severity Reaction Status Date / Time Penicillins Allergy Intermediate Verified 08/25/23 10:48 Review of Systems ROS Status of ROS 10 or more systems reviewed and unremark able except as noted in history and below Exam Narrative Exam Narrative: Nurses notes and vital signs reviewed and patient is not hypoxic. General: Well-appearing and in no apparent distress. Skin: Warm, dry, no pallor noted. No rash. Head: Normocephalic, atraumatic. Neck: Supple, non-tender. Eye: Pupils are equal, round and EOMI. No scleral icterus. Ears, Nose, Mouth, and Throat: TM are clear, no nasal mucosal hypertrophy. Oral mucosa is moist, no posterior oropharynx erythema, uvula is mid-line Cardiovascular: Regular Rate and Rhythm without murmur, gallop or rub. Respiratory: No accessory muscle use or respiratory distress. Lungs are clear to auscultation, no wheezing, rales or rhonchi Chest Wall: no tenderness Back: No midline thoracic or lumbar vertebral tenderness. No CVA tenderness Musculoskeletal: normal ROM, no calf or popliteal tenderness, no lower extremity edema/swelling GI: Abdomen is soft, non-distended. Normal bowel sounds. No masses appreciated. No tenderness to palpation. No rebound, guarding, or rigidity noted. Neurological: A&O x4. No cranial nerve dysfunction observed. No truncal ataxia. Moves all extremities. Sensation intact. Psychiatric: Cooperative and interactive. Normal mood and affect. Constitutional Vital Signs, click to edit/add: Last Vital Signs Temp 97.4 F L 09/20/23 14:47 Pulse 57 L 09/20/23 15:40 Resp 18 09/20/23 15:40 BP 109/43 L 09/20/23 15:40 Pulse Ox 95 09/20/23 15:40 O2 Del Method Room Air 09/20/23 14:47 Course Vital Signs Vital signs: Vital Signs Temperature 97.4 F L 09/20/23 14:47 Pulse Rate 65 09/20/23 14:47 Respiratory Rate 14 09/20/23 14:47 Blood Pressure 128/49 09/20/23 14:47 Pulse Oximetry 95 09/20/23 14:47 Oxygen Delivery Method Room Air 09/20/23 14:47 Temperature 97.4 F L 09/20/23 14:47 Pulse Rate 57 L 09/20/23 15:40 Respiratory Rate 18 09/20/23 15:40 Blood Pressure 109/43 L 09/20/23 15:40 Pulse Oximetry 95 09/20/23 15:40 Oxygen Delivery Method Room Air 09/20/23 14:47 MDM - Dizziness MDM Narrative Medical decision making narrative: Patient EKG in the ER showing sinus rhythm with a heart rate of [address] elevation or depression there is right bundle jessica block Lab Data Labs: Lab Results 09/20/23 09/20/23 Range/Units 15:00 16:00 WBC 7.1 (4.0-11.0) 10^3/uL RBC 4.68 (4.20-5.40) 10^6/uL Hgb 12.6 (12.0-16.0) g/dL Hct 39.9 (36.0-48.0) % MCV 85.3 (81.0-99.0) fL MCH 26.9 (26.7-34.0) pg MCHC 31.6 (29.9-35.2) g/dL RDW 16.2 H (11.0-15.0) % Plt Count 371 (150-450) 10^3/uL MPV 10.7 (9.5-13.5) fL Neut % (Auto) 52.9 (43.0-75.0) % Lymph % (Auto) 27.5 (20.5-60.0) % [place] % (Auto) 15.4 H (1.7-12.0) % Eos % (Auto) 3.1 (0.9-7.0) % Baso % (Auto) 1.1 (0.2-2.0) % Neut # (Auto) 3.8 (1.4-6.5) 10^3/uL Lymph # (Auto) 2.0 (1.2-3.8) 10^3/uL [place] # (Auto) 1.1 H (0.3-0.8) 10^3/uL Eos # (Auto) 0.2 (0.0-0.7) 10^3/uL Baso # (Auto) 0.1 (0.0-0.1) 10^3/uL Abs Immat Gran (auto) 0.00 (0.00-0.03) 10^3/uL Imm/Tot Granulo (auto) 0.0 (0.0-0.5) % Sodium 139 (136-145) mmol/L Potassium 4.1 (3.5-5.1) mmol/L Chloride 102 (98-107) mmol/L Carbon Dioxide 25.1 (21.0-32.0) mmol/L Anion Gap 16.0 BUN 10.0 (7.0-18.0) mg/dL Creatinine 1.16 H (0.55-1.02) mg/dL Est GFR ( Amer) 54 L (>=60) Est GFR (Non-Af Amer) 45 L (>=60) BUN/Creatinine Ratio 8.6 Glucose 109 H (74-106) mg/dL Calcium 9.7 (8.5-10.1) mg/dL Total Bilirubin 0.3 (0.2-1.0) mg/dL AST 14 L (15-37) U/L ALT 15 (14-59) U/L Alkaline Phosphatase 78 (46-116) U/L Troponin I High Sens 7.1 (4.0-51.3) pg/mL Total Protein 7.8 (6.4-8.2) g/dL Albumin 4.0 (3.4-5.0) g/dL Globulin 3.8 g/dL Albumin/Globulin Ratio 1.1 Urine Color Lt. yellow (YELLOW) Urine Clarity Clear (CLEAR) Urine pH 6.0 (5.0-9.0) Ur Specific [place] <=1.005 A (1.005-1.025) Urine Protein Negative (NEG/TRACE) mg/dL Urine Glucose (UA) Negative (NEGATIVE) mg/dL Urine Ketones Negative (NEGATIVE) mg/dL Urine Occult Blood Negative (NEGATIVE) Urine Nitrite Negative (NEGATIVE) Urine Bilirubin Negative (NEGATIVE) Urine Urobilinogen 0.2 (0.2-1.0) EU/dL Ur Leukocyte Esterase Negative (NEGATIVE) Discharge Plan Discharge Stand Alone Forms: Portal Instructions Chief Complaint: Dizziness Clinical Impression: Benign paroxysmal positional vertigo Qualifiers: Laterality: unspecified laterality Qualified Code(s): H81.10 - Benign paroxysmal vertigo, unspecified ear Patient Disposition: Home, Self-Care Time of Disposition Decision: 16:23 Condition: Good Prescriptions / Home Meds: New ondansetron 4 mg tablet,disintegrating 4 mg PO Q8H PRN (Reason: nausea and vomiting and vertigo ) Qty: 7 0RF diphenhydramine HCl [Benadryl] 25 mg capsule 25 mg PO Q8H PRN (Reason: motion sickness) Qty: 7 0RF Discontinued fexofenadine 180 mg tablet 180 mg PO Q24H No Action clopidogrel 75 mg tablet 75 mg PO DAILY dicyclomine 10 mg capsule 10 mg PO .every 4 hours irbesartan 150 mg tablet 150 mg PO DAILY propranolol 60 mg capsule,extended release 24 hr 60 mg PO Q24H rosuvastatin 5 mg tablet 5 mg PO DAILY amlodipine [Norvasc] 10 mg tablet 10 mg PO DAILY Qty: 14 0RF Xifaxan 550 mg tablet 550 mg PO TID lorazepam 0.5 mg tablet 0.5 mg PO DAILY pantoprazole [Protonix] 40 mg tablet,delayed release (DR/EC) 40 mg PO DAILY 42 Days Qty: 42 0RF Print Language: Malagasy Instructions: Benign Paroxysmal Positional Vertigo (ED) Referrals: LICHA DEAN [Primary Care Provider] - 1 week
== END 2023-09-20 16:40 | disposition home or self-care (01) ==
PROVIDERS: Emergency Provider Emergency Medicine; PCP Family Medicine
DX: H81.10 Benign paroxysmal vertigo, unspecified ear (principal)
CPT/HCPCS: 36415; 70450; 80053; 81003; 84484; 85025; 93005; 96361; 96374; 96375; 99285

== ENCOUNTER 2024-12-16 07:50 | Emergency (ER) | payer MEDICARE, OTHER, SELFPAY ==
[2024-12-16] VITALS (7 sets, daily range): BP systolic 152; BP diastolic 52; PULSE 57–71; TEMP 36.6; O2SAT 96; BMI 19.8
--- OUTSIDE RECORDS SUMMARY | 2024-12-16 07:56 | XMS_ITS | Clinical Summary ---
Author Organization [facility] Healthcare Address [address] [place] [address] Care Team Providers Care Cathode Washer Name Role Phone Brad Baltazar MD Primary Care Provider [phone] Allergies Active Allergy Reactions Criticality Noted Date Comments Iodine Rash Low 09/03/2018 Penicillins Hives,Rash Low 09/03/2018 Povidone Iodine Rash Low 08/27/2023 Povidone-Iodine Rash Low 09/03/2018 Medications aspirin (ASPIRIN LOW DOSE) 81 MG EC tablet 1 (one) time each day at the same time Active rosuvastatin (Crestor) 5 MG tablet Take 5 mg by mouth Daily Active LORazepam (Ativan) 0.5 MG tablet Take 0.5 mg by mouth in the morning and 0.5 mg before bedtime. 08/25/2023 Active fexofenadine (Shyann) 180 MG tablet Take 180 mg by mouth Daily 07/25/2023 Active clopidogrel (Plavix) 75 MG tablet 08/24/2023 Active oxyCODONE-aceta minophen (Percocet) 5-325 MG tablet TAKE 1 TO 2 TABLETS BY MOUTH EVERY 4 TO 6 HOURS NEEDED FOR PAIN 04/02/2023 Active Family History Medical History Relation Name Comments No Known Problems Father No Known Problems Mother Cholelithiasis Sister Relation Name Status Comments Father Mother Sister Alive Social History Tobacco Use Types Packs/Day Years Used Date Smoking Tobacco: Former Cigarettes Q uit: 2017 Passive Smoke Exposure: Past Smokeless Tobacco: Never Tobacco Cessation:Counseling Given: Not Answered Alcohol Use Standard Drinks/Week Comments Never 0 (1 standard drink = 0.6 oz pur e alcohol) Comments Unknown Sex and Gender Information Value Date Recorded Sex Assigned at Not on file Legal Sex Female 7:25 PM EDT Gender Identity Not on file Sexual Orientation Not on file Last Filed Vital Signs Vital Sign Reading Time Taken Comments Blood Pressure 98/60 08/27/2023 12:36 PM EDT Pulse 68 08/27/2023 12:36 PM EDT Temperature 36.7 C (98 F) 08/27/2023 12:36 PM EDT Respiratory Rate - - Oxygen Saturation - - Inhaled Oxygen Concentration - - Weight 51.7 kg (114 lb) 08/27/2023 12:36 PM EDT Height 151.1 cm (4' 11.5 ) 09/20/2021 12:00 PM E DT Body Mass Index 22.64 09/20/2021 12:00 PM EDT Plan of Treatment Not on file Insurance MEDICARE Care Teams Cathode Washer Relationship Specialty Start Date End Date Brad Baltazar MD [address] [place], [place] [id number] PCP - General Family Medicine 08/27/23
--- OUTSIDE RECORDS SUMMARY | 2024-12-16 07:58 | XMS_ITS | CCD ---
Author Organization [facility] Care Team Providers Care Framing Machine Tender Name Role Phone El Au Unavailable [phone] DO Brad Dean Primary Care Provider MD El Au Attending Provider [phone] ROE, DR Niya Dobbins Attending Unavailable ROE, DR Niya Dobbins Consulting Unavailable ROE, DR Niya Dobbins Admitting Unavailable HOUSE, DR SALINAS Primary Care Unavailable HOUSE, DR SALINAS Primary Care Unavailable BECKY, DR KAISER Attending Unavailable BECKY, DR KAISER Consulting Unavailable BECKY, DR KAISER Admitting Unavailable ZIEBER, DR JULIA Dobbins Consulting Unavailable Vale Red Unavailable SIVA DUMONT Attending Unavailable DO Brad Dean Primary Care Provider Ly, DO Emma Núñez Attending Provider [phone] Ly, Emma L Attending Unavailable Ly, Emma L Admitting Unavailable House, Brad Primary Care Unavailable Ly, Emma Núñez Attending Unavailable Ly, Emma Núñez Admitting Unavailable HouseBrad Primary Care Unavailable Ly, Emma Núñez Attending Unavailable HouseBrad Primary Care Unavailable Ly, Emma L Admitting Unavailable Ly, Emma L Attending Unavailable House, Brad Primary Care Unavailable Ly, Emma L Admitting Unavailable Ly, Emma L Attending Unavailable Ly, Emma L Admitting Unavailable Brad Dean Primary Care Unavailable DO Brad Dean Primary Care Provider Ly, DO Emma Núñez Attending Provider [phone] BRAD DEAN Primary Care Unavailable HOUSE, DO BRAD Cui Attending Unavailable HOUSE, BRAD Cui Primary Care Unavailable HOUSE, DO BRAD Cui Attending Unavailable HOUSE, BRAD Cui Primary Care Unavailable HOUSE, DO BRAD Cui Attending Unavailable HOUSE, BRAD Cui Primary Care Unavailable HOUSE, DO BRAD Cui Attending Unavailable Allergies Allergy Classification Reported Allergen(s) Allergy Type Date of Onset Reaction(s) Facility (16 sources) Iodine; Translations: [iodine] Drug Allergy 09-03-2018 [facility] (9 sources) Penicillin G Drug Allergy 09-27-2023 [facility] (10 sources) Penicillins; Translations: [Penicillins] Allergy to substance 07-14-2014 [facility] (9 sources) Povidone-Iodine; Translations: [povidone-iodine ] Drug Allergy 09-03-2018 [facility] (9 sources) soap; Translations: [soap] Allergy to substance 09-03-2018 [facility] (2 sources) Povidone-Iodine; Translations: [Betadine] Drug Allergy 07-14-2014 [facility] (1 source) Penicillin Drug Allergy 09-27-2023 [facility] (1 source) Penicillin; Translations: [penicillin] Drug Allergy [facility] Repository Medications Current Medications Medication Drug Class(es) Dates Sig (Normalized) Sig (Original) amLODIPine 10 mg oral tablet (6 sources) Dihydropyridine Calcium Channel Arnol Start: 10-29-2023 take 1 tablet by mouth once daily Amlodipine 10 mg tablet Active 10 MG PO Daily October 29, 2023 12:00am FreeTextSi tablet Orally Once a day; Note: Source Status: Taking; Provider: Roe Gallegos ( ) take 1 tablet by franco th every twenty-four hours amLODIPine Besylate 10 MG 1 tablet Orall y Once a day Active Ascorbic Acid (7 sources) Vitamin C Vitamin C Active aspirin 81 mg chewable tablet (15 sources) Platelet Aggregation Inhibitor, Nonsteroidal Anti-inflammatory Drug Start: 09-03-2018 take 1 tablet by mouth once daily Aspirin 81 mg Tablet,Chewable Active 81 MG PO Daily September 03, [...] Oct, Active cholecalciferol 0.025 mg oral tablet (8 sources) Vitamin D Start: 09-03-2018 take 1 tablet by mouth once daily Cholecalciferol (Vitamin D3) (Vitamin D3) 1,000 unit Tablet Active 1000 UNIT PO Daily September 03, 2018 12:00am clopidogrel 75 mg oral tablet (12 sources) P2Y12 Platelet Inhibitor Start: 10-29-2023 take 1 tablet by mouth once daily Clopidogrel 75 mg tablet Active 75 MG PO Daily October 29, 2023 12:00am FreeTextSi tablet Orally Once a day; Note: Source Status: Taking; Provider: Roe Gallegos ( ) take 1 tablet by franco th every twenty-four hours Clopidogrel Bisulfate 75 MG [...] Fe) MG 1 tablet Orally weekly Active fexofenadine hydrochloride 60 mg oral tablet (5 sources) Histamine-1 Receptor Antagonist Start: 10-29-2023 take 1 tablet by mouth twice daily Fexofenadine (Shyann Allergy) 60 mg tablet Active 60 MG PO Twice daily October 29, 2023 12:00am hyoscyamine sulfate 0.125 mg oral tablet (1 source) Start: 01-30-2024 Hyoscyamine Sulfate 0.125 mg tablet Active 0.125 MG PO 2-4 TIMES PER DAY as needed January 30, 2024 12:00am irbesartan 150 mg oral tablet (12 sources) Angiotensin 2 Receptor Arnol Start: 10-29-2023 take 1 tablet by mouth once daily Irbesartan (Avapro) 150 mg tablet Active 150 MG PO Daily October 29, 2023 12:00am FreeTextSi tablet Orally Once a day; Note: Source Status: Taking; Provider: Roe Gallegos ( ) take 1 tablet by franco th every twenty-four hours Avapro 150 MG 1 tablet Orally Once a day Active Iron (1 source) Iron Active lactulose 667 mg/ml oral solution (1 source) Osmotic Laxative Start: 06-17-19 take 15 mL by mouth once daily Lactulose 10 GM/15ML 15 ml Orally Once a day for 30 day(s) Jun, Active LORazepam 0.5 mg oral tablet (5 sources) Benzodiazepine Start: 10-29-19 take 1 tablet by mouth three times daily as needed for anxiety Lorazepam 0.5 mg tablet Active 0.5 MG PO Three times daily as needed for anxiety October 29, 2023 12:00am pregabalin 150 mg oral capsule (1 source) take 1 capsule by mouth every twenty-four hours Pregabalin 150 MG 1 capsule Orally Once a day for 30 Active Probiotic (3 sources) Probiotic as directed Active propranolol hydrochloride 60 mg oral tablet (20 sources) beta-Adrenergic Arnol Start: 10-29-19 take 1 tablet by mouth once daily Propranolol 60 mg tablet Active 60 MG PO Daily October 29, 2023 12:00am FreeTextSi tablet on an empty stomach Orally Once a day; Note: Source Status: Taking; Provider: Roe Gallegos ( ) Start: 09-03-2018 End: 10-29-2023 take 1 capsule by mouth once daily Propranolol 60 mg capsule,extended release 24 hr Discontinued 60 MG PO Daily September 03, 2018 12:00am October 29, 2023 10:22am take 1 tablet by franco th every twenty-four hours Propranolol HCl 60 MG 1 tablet on an empty stomach Orally Once a day for 30 day(s) Active rosuvastatin calcium 5 mg oral tablet (15 sources) HMG-CoA Reductase Inhibitor Start: 09-03-2018 take 1 tablet by mouth once daily Rosuvastatin 5 mg tablet Active 5 MG PO Daily September 03, 2018 12:00am Vitamin B 12 250 MCG (7 sources) Vitamin B 12 250 MCG as directed Orally Active vitamin b12 1 mg oral tablet (5 sources) Vitamin B12 Start: 10-29-2023 take 1 tablet by mouth once daily Cyanocobalamin (Vitamin B-12) (Vitamin B-12) 1,000 mcg tablet Active 1000 MCG PO Daily October 29, 2023 12:00am Vitamin D3 1000 UNIT (7 sources) take 1 tablet by mouth once daily Vitamin D3 1000 UNIT 1 tablet Orally Once a day for 30 day(s) Active Completed/Discontinued Medications Medication Drug Class(es) Dates Sig (Normalized) Sig (Original) folic acid 0.4 mg / vitamin b12 0.5 mg oral tablet (8 sources) Vitamin B12 Start: 09-03-2018 End: 10-29-2023 take 1 tablet by mouth once daily Vitamin U26-Rknkb Acid 500-400 mcg Tablet Discontinued 1 TAB PO Daily September 03, 2018 12:00am October 29, 2023 10:23am hydrOXYzine hydrochloride 25 mg oral tablet (20 sources) Antihistamine Start: 09-03-2018 End: 10-29-2023 take 0.5 tablet by mouth once daily Hydroxyzine Hcl 10 mg tablet Discontinued 0.5 TAB PO Daily September 03, 2018 12:00am October 29, 2023 10:23am Start: 09-03-2018 End: 10-29-2023 take 1 tablet by mouth once daily Hydroxyzine Hcl 25 mg tablet Discontinued 25 MG PO Daily September 03, 2018 12:00am October 29, 2023 10:23am take 1 tablet by franco th every eight hours hydrOXYzine HCl 25 MG 1 tablet as needed Orally every 8 hrs for 30 day(s) Active lisinopril 5 mg oral tablet (8 sources) Angiotensin Converting Enzyme Inhibitor Start: 11-26-2018 End: 10-29-2023 take 2 tablets by mouth once daily Lisinopril 5 mg tablet Discontinued 10 MG PO Daily November 26, 2018 12:00am October 29, 2023 10:23am Start: 11-26-2018 End: 10-29-2023 take 10 mg by mouth once daily Lisinopril Discontinued 10 MG PO Daily November 26, 2018 12:00am October 29, 2023 10:23am omeprazole 40 mg delayed release oral capsule (7 sources) Proton Pump Inhibitor Start: 09-27-2023 End: 07-23-2024 take 1 capsule by mouth twice daily Omeprazole 40 mg capsule,delayed release(DR/EC) Discontinued 40 MG PO Twice daily 180 90 September 27, 2023 12:00am July 23, 2024 1:01pm sucralfate 1000 mg oral tablet (4 sources) Aluminum Complex Start: 11-26-2023 End: 07-23-2024 take 1 tablet by mouth three times daily before mealtime Sucralfate (Carafate) 1 gram tablet Discontinued 1 GM PO 3x/Day before meals 270 90 November 26, 2023 12:00am July 23, 2024 1:01pm Take 1 tablet orally before meals three times a day Problems Active Problems Problem Classification Problem Date Documented Da te Episodic/Chronic Abdominal hernia (20 sources) Hiatal hernia; Translations: [Diaphragmatic hernia without obstruction or gangrene] Onset: 4 09-27-2023 Episodic Abdominal pain (20 sources) Unspecified abdominal pain; Translations: [Abdominal pain] [...] Translations: [Unspecified hemorrhoids] Episodic Nausea and vomiting (20 sources) Nausea and vomiting; Translations: [Nausea with vomiting, unspecified] Onset: 4 09-27-2023 Episodic Other disorders of stomach and duodenum (15 sources) Angiodysplasia of stomach; Translations: [Angiodysplasia of stomach and duodenum with bleeding] 12-03-2018 Episodic Comment on above: Problem List clean-u p per request of Phys. EHR Cmte Other gastrointestinal disorders (8 sources) Constipation alternates with diarrhea; Translations: [Other specified symptoms and signs involving the digestive system and abdomen] 01-30-2024 Episodic Other gastrointestinal disorders (14 sources) Constipation; Translations: [Constipation, unspecified] 09-27-2023 Episodic Other gastrointestinal disorders (10 sources) Constipation, unspecified; Translations: [Constipation, unspecified] Onset: 2 Resolved: 2 Episodic Other gastrointestinal disorders (7 sources) Dysphagia; Translations: [Dysphagia, unspecified] 09-27-2023 Episodic Other gastrointestinal disorders (2 sources) Dysphagia, unspecified; Translations: [Dysphagia, unspecified] Onset: 4 09-27-2023 Episodic Other gastrointestinal disorders (1 source) Diarrhea, unspecified; Translations: [Diarrhea, unspecified] Onset: 4 Episodic Other lower respiratory disease (1 source) Unspecified acute lower respiratory infection Episodic Peripheral and visceral atherosclerosis (5 sources) Atherosclerosis of [place] arteries of extremities with intermittent claudication, bilateral legs; Translations: [Atherosclerosis of [place] arteries of extremities with intermittent claudication, unspecified extremity] Onset: 2 Chronic Residual codes; unclassified (7 sources) Body mass index 20-24 - normal; Translations: [Body mass index (BMI) 21.0-21.9, adult] Episodic Past or Other Problems Problem Classification Problem Date Documented Da te Episodic/Chronic Unclassified (1 source) Suspected COVID-19 virus infection Z20.822 Results Test Name Value Interpretation Reference Range Facility Consultation/Specialist Note on 07-24-2024 Consultation/Specialis t Note [id number] Agreem entson 03-10-2024 Controlled Substances Agreements [id number]/Specialist Note on 01-31-2024 Consultation/Specialis t Note [id number] Complete Blood Count Auto Di ffOrdered By: Emma Rodas on 01-22-2024 Basophils (Bld) [#/Vol] 0.1 10*3/uL Normal 0.0-0.2 [facility] Comment on above: Result Comment: PERF ORMED BY: [place] [address] PATHOLOGIST DIRECTOR MBA HOLLIE BONNER M.D. Performed By: #### C BC #### [address] Basophils/100 WBC (Bld) 1.1 % Normal . [facility] Comment on above: Performed By: #### C BC #### [address] Eosinophils (Bld) [#/Vol] 0.2 10*3/uL Normal 0.0-0.45 [facility] Comment on above: Performed By: #### C BC #### [address] Eosinophils/100 WBC (Bld) 2.6 % Normal . [facility] Comment on above: Performed By: #### C BC #### [address] Erythrocyte distribution width (RBC) [Ratio] 16.5 % High 11.9-15.3 [facility] Comment on above: Performed By: #### C BC #### [address] Hematocrit (Bld) [Volume fraction] 35.5 % Normal 34.0-46.4 [facility] Comment on above: Performed By: #### C BC #### [address] Hemoglobin (Bld) [Mass/Vol] 11.8 g/dL Normal 11.8-15.4 [facility] Comment on above: Performed By: #### C BC #### [place] [address] [place] Lymphocytes (Bld) [#/Vol] 1.7 10*3/uL Normal 1.00-4.8 [facility] Comment on above: Performed By: #### C BC #### [address] Lymphocytes/100 WBC (Bld) 21.0 % Normal . [facility] Comment on above: Performed By: #### C BC #### [facility] [address] MCH (RBC) [Entitic mass] 28.3 pg Normal 24.7-34.3 [facility] Comment on above: Performed By: #### C BC #### [facility] [address] MCV (RBC) [Entitic vol] 85.1 fL Normal 80-100 [facility] Comment on above: Performed By: #### C BC #### [facility] [address] Monocytes (Bld) [#/Vol] 1.4 10*3/uL High 0.0-0.8 [facility] Comment on above: Performed By: #### C BC #### [address] Monocytes/100 WBC (Bld) 17.5 % Normal . [facility] Comment on above: Performed By: #### C BC #### [address] Neutrophils (Bld) [#/Vol] 4.6 10*3/uL Normal 1.8-7.7 [facility] Comment on above: Performed By: #### C BC #### [address] Neutrophils/100 WBC (Bld) 57.8 % Normal . [facility] Comment on above: Performed By: #### C BC #### [facility] [address] Platelet mean volume (Bld) [Entitic vol] 8.8 fL Normal 6.3-10.7 [facility] Comment on above: Performed By: #### C BC #### [address] Platelets (Bld) [#/Vol] 324 10*3/uL Normal 150-450 [facility] Comment on above: Performed By: #### C BC #### [address] RBC (Bld) [#/Vol] 4.18 10*6/uL Normal 3.60-5.00 [facility] Comment on above: Performed By: #### C BC #### [facility] [address] [place] [address] WBC (Bld) [#/Vol] 8.0 10*3/uL Normal 3.8-11.6 [facility] Comment on above: Performed By: #### C BC #### [address] Complete Blood Count Auto Di ffon 01-22-2024 Mean Corpuscular HGB Conc 33.2 g/dL Normal 32.0-35.0 [facility] Comment on above: Performed By: #### C BC #### [address] NRBC% 0.0 /100{WBC} Normal 0-0.5 [facility] Comment on above: Performed By: #### C BC #### [address] Leukocytes [#/volume] correc adrian for nucleated erythrocytes in Blood by Automated counOrdered By: Emma Rodas on 01-22-2024 WBC corrected for nucl RBC Auto (Bld) [#/Vol] 8.0 10*3/uL 3.8-11.6 [facility] MCHC Auto (RBC) [Mass/Vol]Or dered By: Emma Rodas on 01-22-2024 MCHC (RBC) [Mass/Vol] 33.2 g/dL 32.0-35.0 [facility] Nucleated erythrocytes [Pres ence] in Blood by Automated countOrdered By: Emma Rodas on 01-22-2024 Nucleated RBC Auto Ql (Bld) 0.0 /100{WBC} 0-0.5 [facility] Clostridioides difficile tox in B tcdB gene [Presence] in Stool by MARIJA with probe deteOrdered By: Emma Rodas on 12-13-2023 C. difficile toxin B tcdB gene MARIJA+probe Ql (Stl) Negative Negative [facility] Comment on above: Testing performed by RT-PCR Clostridium Difficileon 11-15 Clostridium Difficile Negative Normal Negative [facility] Comment on above: Result Comment: Test ing performed by RT-PCR PERFORMED BY: [place] [address] PATHOLOGIST DIRECTOR MBA HOLLIE BONNER M.D. Performed By: #### G I PROFILE, STL #### [facility] , #### CDT #### [address] Cryptosporidium sp DNA [Pres ence] in Stool by MARIJA with non-probe detectionOrdered By: Emma Rodas on 12-13-2023 Cryptosporidium sp DNA MARIJA+non-probe Ql (Stl) Not detected Not Detected [facility] Detection in stool of any of Campylobacter coli, Campylobacter jejuni, and CampylobacOrdered By: Emma Rodas on 12-13-2023 C. coli+jejuni+upsaliensi s DNA MARIJA+non-probe Ql (Stl) Not detected Not Detected [facility] Detection in stool of any of Vibrio cholerae, Vibrio parahaemolyticus, and Vibrio vulOrdered By: Emma Rodas on 12-13-2023 V. cholerae+parahaemolyti cus+vulnificus DNA MARIJA+non-probe Ql (Stl) Not detected Not Detected [facility] Detection in stool of either or both Clostridium difficile toxin A and B genes by tarOrdered By: Emma Rodas on 12-13-2023 C. difficile toxin A+B tcdA+tcdB genes MARIJA+non-probe Ql (Stl) Not detected Not Detected [facility] Detection in stool of either or both Salmonella enterica and Salmonella bongori DNA bOrdered By: Emma Rodas on 12-13-2023 S. enterica+bongori DNA MARIJA+non-probe Ql (Stl) Not detected Not Detected [facility] Detection in stool of either or both enteroaggregative Escherichia coli Tejinder plasmid aOrdered By: Emma Rodas on 12-13-2023 E. coli enteroaggregative Tejinder plasmid aggR+aatA genes MARIJA+non-probe Ql (Stl) Not detected Not Detected [facility] Escherichia coli O157 DNA [P resence] in Stool by MARIJA with non-probe detectionOrdered By: Emma Rodas on 12-13-2023 E. coli O157 DNA MARIJA+non-probe Ql (Stl) Not applicable Not Detected [facility] Escherichia coli Stx1 and St x2 toxin stx1+stx2 genes [Presence] in Stool by MARIJA withOrdered By: Emma Rodas on 12-13-2023 E. coli stx1+stx2 genes MARIJA+non-probe Ql (Stl) Not detected Not Detected [facility] Escherichia coli enteropatho genic eae gene [Presence] in Stool by MARIJA with non-probeOrdered By: Emma Rodas on 12-13-2023 E. coli enteropathogenic eae gene MARIJA+non-probe Ql (Stl) Not detected Not Detected [facility] Escherichia coli enterotoxig enic ltA+st1a+st1b genes [Presence] in Stool by MARIJA withOrdered By: Emma Rodas on 12-13-2023 E. coli enterotoxigenic ltA+st1a+st1b genes MARIJA+non-probe Ql (Stl) Not detected Not Detected [facility] Gastrointestinal Profile, PC Bruno 12-13-2023 Adenovirus F 40/41 Not detected Normal Not Detected [facility] Comment on above: Performed By: #### G I PROFILE, STL #### [facility] , #### CDT #### [facility] [address] [place] [address] Astrovirus Not detected Normal Not Detected [facility] Comment on above: Performed By: #### G I PROFILE, STL #### [facility] , #### CDT #### [facility] [address] [place] [address] [place] C Difficile Toxin A/B Not detected Normal Not Detected [facility] Comment on above: Performed By: #### G I PROFILE, STL #### [facility] , #### CDT #### [facility] [address] [place] [address] [place] Campylobacter Not detected Normal Not Detected [facility] Comment on above: Performed By: #### G I PROFILE, STL #### [facility] , #### CDT #### [facility] [address] [place] [address] Cryptosporidium Not detected Normal Not Detected [facility] Comment on above: Performed By: #### G I PROFILE, STL #### [facility] , #### CDT #### [address] Cyclospora cayetanensis Not detected Normal Not Detected [facility] Comment on above: Performed By: #### G I PROFILE, STL #### [facility] , #### CDT #### [facility] [address] [place] [address] E coli O157 Not applicable Normal Not Detected [facility] Comment on above: Performed By: #### G I PROFILE, STL #### [facility] , #### CDT #### [address] Entamoeba histolytica Not detected Normal Not Detected [facility] Comment on above: Performed By: #### G I PROFILE, STL #### [facility] , #### CDT #### [facility] [address] [place] [address] [place] Enteroaggregative E coli Not detected Normal Not Detected [facility] Comment on above: Performed By: #### G I PROFILE, STL #### [facility] , #### CDT #### [facility] [address] [place] [address] Enteropathogenic E coli Not detected Normal Not Detected [facility] Comment on above: Performed By: #### G I PROFILE, STL #### [facility] , #### CDT #### [facility] [address] [place] [address] Enterotoxigenic E coli Not detected Normal Not Detecte d [facility] Comment on above: Performed By: #### G I PROFILE, STL #### [facility] , #### CDT #### [address] Giardia lamblia Not detected Normal Not Detected [facility] Comment on above: Performed By: #### G I PROFILE, STL #### [facility] , #### CDT #### [address] Norovirus GI/GII Not detected Normal Not Detected [facility] Comment on above: Performed By: #### G I PROFILE, STL #### [facility] , #### CDT #### [address] Plesiomonas shigelloides Not detected Normal Not Detected [facility] Comment on above: Performed By: #### G I PROFILE, STL #### [facility] , #### CDT #### [address] Rotavirus A Not detected Normal Not Detected [facility] Comment on above: Performed By: #### G I PROFILE, STL #### [facility] , #### CDT #### [address] Salmonella Not detected Normal Not Detected [facility] Comment on above: Performed By: #### G I PROFILE, STL #### [facility] , #### CDT #### [address] Sapovirus Not detected Normal Not Detected [facility] Comment on above: Result Comment: Perf ormed at: - [facility] [id number] Assistant Hvac Mechanic: Dennise Villalobos MD, Phone: [phone] PERFORMED BY: [place] [address] PATHOLOGIST DIRECTOR MBA HOLLIE BONNER M.D. Performed By: #### G I PROFILE, STL #### [facility] , #### CDT #### [facility] [address] [place] [address] Mtcue-ptalc-mimauijxn E coli Not detected Normal Not Detected [facility] Comment on above: Performed By: #### G I PROFILE, STL #### [facility] , #### CDT #### [address] Shigella/Enteroinvasiv e E coli Not detected Normal Not Detected [facility] Comment on above: Performed By: #### G I PROFILE, STL #### [facility] , #### CDT #### [address] Vibrio Not detected Normal Not Detected [facility] Comment on above: Performed By: #### G I PROFILE, STL #### [facility] , #### CDT #### [facility] [address] [place] [address] Vibrio cholerae Not detected Normal Not Detected [facility] Comment on above: Performed By: #### G I PROFILE, STL #### [facility] , #### CDT #### [facility] [address] [place] [address] Yersinia enterocolitica Not detected Normal Not Detected [facility] Comment on above: Performed By: #### G I PROFILE, STL #### [facility] , #### CDT #### [facility] [address] [place] [address] No Panel InformationOrdered By: Emma Rodas on 12-13-2023 Adenovirus Types 40, 41 Not detected Not Detected [facility] Giardia lamblia Interpretation Not detected Not Detected [facility] Stool Astrovirus (PCR) Not detected Not Detecte d [facility] Stool Cyclospora cayetanensis (PCR) Not detected Not Detected [facility] [facility] Stool Entamoeba (PCR) Not detected Not Detected [facility] Stool Norovirus GI/GII PCR Not detected Not Detected [facility] Stool Rotavirus (PCR) Not detected Not Detected [facility] Stool Sapovirus (PCR) Not detected Not Detected [facility] Comment on above: Performed at: [address] [id number] Director: Dennise Villalobos MD, Phone: [phone] Shigella species+EIEC invasi on plasmid antigen H ipaH gene [Presence] in Stool by NAAOrdered By: Emma Rodas on 12-13-2023 Shigella species+EIEC invasion plasmid antigen H ipaH gene MARIJA+non-probe Ql (Stl) Not detected Not Detected [facility] Stool Plesiomonas shigelloid es DNA detection by non-probe and target amplification meOrdered By: Emma Rodas on 12-13-2023 P. shigelloides DNA MARIJA+non-probe Ql (Stl) Not detected Not Detected [facility] Vibrio cholerae DNA [Presenc e] in Stool by MARIJA with non-probe detectionOrdered By: Emma Rodas on 12-13-2023 V. cholerae DNA MARIJA+non-probe Ql (Stl) Not detected Not Detected [facility] Yersinia enterocolitica DNA [Presence] in Stool by MARIJA with non-probe detectionOrdered By: Emma Rodas on 12-13-2023 Y. enterocolitica DNA MARIJA+non-probe Ql (Stl) Not detected Not Detected [facility] XR KUBon 12-04-2023 XR KUB [facility] [place] [address] XRay Report Signed Patient: Yadira Lamb MR#: [id number] 661 : 1940 Acct:[id number] Age/Sex: 83 / F ADM Date: 12/04/23 Loc: XD Room: Type: [facility] Attending Dr: Emma Rodas DO Copies to: Emma Rodas DO Ordering Provider: Emma Rodas DO Date of Service: 12/04/23 XR/XR KUB: R19.7 - Diarrhea, unspecified KUB: CLINICAL INFORMATION: Abdominal cramping and diarrhea since having scope done. COMPARISON: None FINDINGS: Nonspecific bowel gas pattern. No free air. Right iliac vascular stent is in place. Osseous structures demonstrate degenerative change. XR/XR KUB IMPRESSION: No acute process. Impression dictated by: Esequiel Galvan Jr., D.OLazaro12/04/2023 2:48 PM Dictation Location: [place] [address] Transcribed By: [facility] 12/04/23 144 Dictated By: Esequiel Galvan Jr, DO 12/04/23 144 Signed By: 12/04/23 1448 Normal [facility] 11-07-2023 L Specimen: [id number] Received: 11/07/23 Status: GONZÁLEZ Hale Num: [id number] Spec Type: Surgical Subm Dr: Emma Rodas DO Tissues: A Small Intestine - Biopsy/Polyp (SMALL BOWEL BX) B GASTRIC FOR HP (GASTRIC HP) Procedures: HE/4, Gross/Micro L4/2, H PYLORI, IHC First AB Age/ Patient Sex Location Account Attending Physician Yadira Lamb 83/F [id number] Emma Rodas DO SPEC NUM: [id number] RECD: 11/07/23 STATUS: GONZÁLEZ HALE NUM: [id number] AUTUMN: 11/07/23- SUBM DR: Emma Rodas DO ENTERED: 11/07/[address] [facility] [address]: SPEC TYPE: Surgical DEPT: S ORDERED: HE/4, Gross/Micro L4/2, H PYLORI, IHC First AB ORDERED: HE/4, Gross/Micro L4/2, H PYLORI, IHC First AB Pathological Diagnosis A. Small bowel (mucosal biopsies): Within normal limits B. Stomach (mucosal biopsies): Reactive gastropathy/gastrit is with minute focus of intestinal metaplasia No Helicobacter pylori organisms or dysplasia seen See microscopic description Clinical Information Nausea, abdominal pain, rule out celiac and rule out H. pylori. Gross Description Received are 2 formalin filled containers each labeled with the patient's name, date of and specific specimen site. A. Further labeled small bowel BX are 2 horta mucosal tissue fragments measuring 0.3 x 0.2 x 0.1 cm and 0.2 x 0.2 x 0.1 cm, entirely submitted in A1. B. Further labeled gastric BX are 2 horta mucosal tissue fragments each measuring 0.2 x 0.2 x 0.1 cm, entirely submitted in B1. Specimen: [id number] Received: 11/07/23 Status: GONZÁLEZ Hale Num: [id number] Spec Type: Surgical Subm Dr: Emma Rodas, DO Tissues: A Small Intestine - Biopsy/Polyp (SMALL BOWEL BX) B GASTRIC FOR HP (GASTRIC HP) Procedures: HE/4, Gross/Micro L4/2, H PYLORI, IHC First AB Patient: Yadira Lamb [id number] (Continued) Specimen: [id number] Received: 11/07/23 (Continued) Signed (signatur e on file) Brad Gamboa Jr., MD 11/09/2309 Specimen: [id number] Received: 11/07/23 Status: GONZÁLEZ Alexia Num: [id number] Spec Type: Surgical Subm Dr: Emma Rodas DO Tissues: A Small Intestine - Biopsy/Polyp (SMALL BOWEL BX) B GASTRIC FOR HP (GASTRIC HP) Procedures: HE/4, Gross/Micro L4/2, H PYLORI, IHC First AB Patient: Yadira Lamb [id number] (Continued) Specimen: [id number] Received: 11/07/23 (Continued) Microscopic Description Immunoperoxidase stain performed on formalin fixed and paraffin-embedded tissue sections (block B1) for Helicobacter pylori organisms is negative with a satisfactory control. CPT Codes 30226 x 2,, 47958 Specimen: [id number] Received: 11/07/23 Status: GONZÁLEZ Contreraswu Num: [id number] Spec Type: Surgical Subm Dr: Emma Rodas DO Tissues: A Small Intestine - Biopsy/Polyp (SMALL BOWEL BX) B GASTRIC FOR HP (GASTRIC HP) Procedures: HE/4, Gross/Micro L4/2, H PYLORI, IHC First AB Patient: Yadira Lamb [id number] (Continued) Signed (signatur e on file) Brad Gamboa Jr., MD 11/09/23 0909 [facility] [place] esophaguson 10-19-2023 [place] esophagus [facility] [place] [address] [place] [address] Fluoroscopy Report Signed Patient: Yadira Lamb MR#: [id number] 661 : 1940 Acct:[id number] Age/Sex: 83 / F ADM Date: 10/19/23 Loc: XD Room: Type: [facility] Attending Dr: Emma Rodas DO Copies to: Emma Rodas DO Ordering Provider: Emma Rodas DO Date of Service: 10/19/23 FL/FL esophagus: K44.9 - Diaphragmatic hernia without obstruction or gangrene DOUBLE CONTRAST ESOPHAGRAM CLINICAL HISTORY: Dysphagia. COMPARISON: None TECHNIQUE: Double contrast esophagram was performed. Cumulative Air Kerma in mGy: 42.17 mGy FINDINGS: There is a mild stricture at the level of the distal esophagus with tertiary contractions noted. A small diverticulum is seen within the region. No obstructing mass. No hiatal hernia was appreciated. 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 THERE IS LIKELY A SMALL DIVERTICULUM IN THIS REGION. NO OBSTRUCTING MASS IS SEEN. CORRELATION WITH ENDOSCOPY IS RECOMMENDED. Impression dictated by: Esequiel Galvan Jr., JessOLazaro10/19/2023 10:55 AM Dictation Location: [place] [address] Transcribed By: [facility] 10/19/23 1055 Dictated By: Esequiel Galvan Jr, DO 10/19/23 1052 Signed By: 10/19/23 1055 Normal [facility] COVID Quick Testingon 2022 Result Negative [facility] Other CBC AUTO DIFFon 05-09-2022 BASO # 0.1 103/ul Normal 0.0-0.1 [facility] Comment on above: Performed By: #### C BC #### [facility] [address] [place] [address] [address] Sadaf Canela Basophils/100 WBC (Bld) 0.8 % Normal 0.2-2.0 [facility] Comment on above: Performed By: #### C BC #### [facility] [address] [place] [address] Dr. Sadaf Canela EO # 0.2 103/ul Normal 0.0-0.7 [facility] Comment on above: Performed By: #### C BC #### [facility] [address] [place] [address] Dr. Sadaf Canela Eosinophils/100 WBC (Bld) 2.1 % Normal 0.9-7.0 [facility] Comment on above: Performed By: #### C BC #### [facility] [address] [place] [address] Dr. Sadaf Canela Erythrocyte distribution width (RBC) [Ratio] 14.6 % Normal 11.0-15.0 [facility] Comment on above: Performed By: #### C BC #### [facility] [address] [place] [address] Dr. Sadaf Canela Hematocrit (Bld) [Volume fraction] 40.4 % Normal 36.0-48.0 [facility] Comment on above: Performed By: #### C BC #### [facility] [address] [place] [address] Dr. Sadaf Canela Hemoglobin (Bld) [Mass/Vol] 12.6 g/dL Normal 12.0-16.0 [facility] Comment on above: Performed By: #### C BC #### [facility] [address] [place] [address] Dr. Sadaf Canela IG # 0.01 10e3/ul Normal 0.00-0.03 [facility] Comment on above: Performed By: #### C BC #### [facility] [address] [place] [address] Dr. Sadaf Canela IG % 0.1 % Normal 0.0-0.5 [facility] Comment on above: Performed By: #### C BC #### [facility] [address] [place] [address] Dr. Sadaf Canela LYMPH # 1.6 103/ul Normal 1.2-3.8 [facility] Comment on above: Performed By: #### C BC #### [facility] [address] [place] [address] Dr. Sadaf Canela Lymphocytes/100 WBC (Bld) 22.2 % Normal 20.5-60.0 [facility] Comment on above: Performed By: #### C BC #### [facility] [address] [place] [address] Dr. Sadaf Canela MANUAL DIFF REQ NO Normal [facility] Comment on above: Performed By: #### C BC #### [facility] [address] [place] [address] Dr. Sadaf Canela MCH (RBC) [Entitic mass] 27.6 pg Normal 26.7-34.0 [facility] Comment on above: Performed By: #### C BC #### [facility] [address] [place] [address] Dr. Sadaf Canela MCHC (RBC) [Mass/Vol] 31.2 g/dL Normal 29.9-35.2 [facility] Comment on above: Performed By: #### C BC #### [facility] [address] [place] [address] Dr. Sadaf Canela MCV (RBC) [Entitic vol] 88.4 fL Normal 81.0-99.0 [facility] Comment on above: Performed By: #### C BC #### [facility] [address] [place] [address] Dr. Sadaf Canlea MONO # 0.9 103/ul Critically high 0.3-0.[address] [facility] Comment on above: Performed By: #### C BC #### [facility] [address] [place] [address] Dr. Sadaf Canela Monocytes/100 WBC (Bld) 12.4 % Critically high 1.7-12.0 [facility] Comment on above: Performed By: #### C BC #### [facility] [address] [place] [address] Dr. Sadaf Canela NEUT # 4.5 103/ul Normal 1.4-6.5 [facility] Comment on above: Performed By: #### C BC #### [facility] [address] [place] [address] Dr. Sadaf Canela Neutrophils/100 WBC (Bld) 62.4 % Normal 43.0-75.0 [facility] Comment on above: Performed By: #### C BC #### [facility] [address] [place] [address] Dr. Sadaf Canela Platelet mean volume (Bld) [Entitic vol] 10.2 fL Normal 9.5-13.5 [facility] Comment on above: Performed By: #### C BC #### [facility] [address] [place] [address] Dr. Sadaf Canela PLT 351 103/ul Normal 150-450 [facility] Comment on above: Performed By: #### C BC #### [facility] [address] [place] [address] Dr. Sadaf Canela RBC 4.57 106/ul Normal 4.20-5.40 [facility] Comment on above: Performed By: #### C BC #### [facility] [address] [place] [address] Dr. Sadaf Canela WBC 7.2 103/ul Normal 4.0-11.0 [facility] Comment on above: Performed By: #### C BC #### [facility] [address] [place] [address] Dr. Sadaf Canela FERRITINon 05-09-2022 Ferritin [Mass/Vol] 19.0 ng/mL Normal 8.0-252.0 [facility] Comment on above: Performed By: #### F ERR #### [facility] [address] [place] [address] Dr. Sadaf Canela Blood hemoglobin measurement (mass/volume)Ordered By: El Au on 12-20-2021 Hemoglobin (Bld) [Mass/Vol] 13.4 g/dL 11.8-15.4 [facility] Hematocrit Auto (Bld) [Volum e fraction]Ordered By: El Au on 12-20-2021 Hematocrit (Bld) [Volume fraction] 41.1 % 34.0-46.4 [facility] Hemoglobin and Hematocriton 09-06-2022 Hematocrit (Bld) [Volume fraction] 41.100 % Normal 34.0-46.4 % [facility] [employer] Other Hemoglobin (Bld) [Mass/Vol] 13.193033 g/dL Normal 11.8-15.4 g/dL [facility] Other CREATININEon 08-30-2021 Creatinine [Mass/Vol] 0.82 mg/dL Normal 0.55-1.02 [facility] Comment on above: Performed By: #### C HANNAH #### [facility] [address] [place] [address] [address] Sadaf Canela EGFR-AF CITIZEN OF [place] >60 Normal >=60 [facility] Comment on above: Performed By: #### C HANNAH #### [facility] [address] [place] [address] Dr. Sadaf Canela EGFR-NON AF CITIZEN OF [place] >60 Normal >=60 [facility] Comment on above: Performed By: #### C HANNAH #### [facility] [address] [place] [address] Dr. Sadaf Canela CTA ABD MALENA WWO [...] ffon 06-16-2021 Basophils (Bld) [#/Vol] 0.1 10*3/uL 0.0-0.2 [facility] Other Basophils/100 WBC (Bld) 1.3 % . [facility] Other Eosinophils (Bld) [#/Vol] 0.2 10*3/uL 0.0-0.45 [facility] Other Eosinophils/100 WBC (Bld) 1.7 % . [facility] Other Erythrocyte distribution width (RBC) [Ratio] 14.5 % 11.9-15.3 [facility] Other Hematocrit (Bld) [Volume fraction] 41.8 % 34.0-46.4 [facility] Other Hemoglobin (Bld) [Mass/Vol] 13.6 g/dL 11.8-15.4 [facility] Other Lymphocytes (Bld) [#/Vol] 2.1 10*3/uL 1.00-4.8 [facility] Other Lymphocytes/100 WBC (Bld) 23.5 % . [facility] Other MCH (RBC) [Entitic mass] 28.9 pg 24.7-34.3 [facility] Other MCH (RBC) [Entitic mass] 32.5 pg 32.0-35.0 [facility] Other MCV (RBC) [Entitic vol] 88.9 fL 80-100 [facility] Other Monocytes (Bld) [#/Vol] 1.1 10*3/uL 0.0-0.8 [facility] Other Monocytes/100 WBC (Bld) 12.1 % . [facility] Other Neutrophils (Bld) [#/Vol] 5.5 10*3/uL 1.8-7.7 [facility] Other Neutrophils/100 WBC (Bld) 61.4 % . [facility] Other Platelet mean volume (Bld) [Entitic vol] 7.9 fL 6.3-10.7 [facility] Other Platelets (Bld) [#/Vol] 337 10*3/uL 150-450 [facility] Other RBC (Bld) [#/Vol] 4.71 10*6/uL 3.60-5.00 [facility] Other WBC (Bld) [#/Vol] 8.9 10*3/uL 3.8-11.6 [facility] [employer] Other Complete Blood Count Auto Diff 8.9 4.5-11.0 [facility] [employer] Other Complete Blood Count Auto Diff 0.0 0-0.5 [facility] [employer] Other Vital Signs Date Time Vital Sign Value Performing Clinician Facility 07-23-2024 12:58-0400 Body height 149.86 cm [facility] 07-23-2024 12:58-0400 Body mass index (BMI) [Ratio] 22.6 kg/m2 [facility] 07-23-2024 12:58-0400 Body weight 50.8 kg [facility] 11-07-2023 14:20-0400 Diastolic blood pressure 48 mm[Hg] DO Brad House Work Phone: [facility] 11-07-2023 14:20-0400 Heart rate 54 /min DO Brad House Work Phone: [facility] 11-07-2023 14:20-0400 Respiratory rate 16 /min DO Brad House Work Phone: [facility] 11-07-2023 14:20-0400 SaO2% (BldA) [Mass fraction] 95 % DO Brad House Work Phone: [facility] 11-07-2023 14:20-0400 Systolic blood pressure 123 mm[Hg] DO Brad House Work Phone: [facility] 11-07-2023 12:21-0400 Body height 149.86 cm DO Brad House Work Phone: [facility] 11-07-2023 12:21-0400 Body weight 51.7 kg DO Brad House Work Phone: [facility] 09-27-2023 15:12-0400 Body height 149.86 cm [facility] 09-27-2023 14:43-0400 Body mass index (BMI) [Ratio] 25.8 kg/m2 [facility] 09-27-2023 14:43-0400 Body weight 58 kg [facility] 03-01-2023 14:45-0500 Body height 151.13 cm El Galvezormack Other [facility] Other 03-01-2023 14:45-0500 Body mass index (BMI) [Ratio] 25.62 kg/m2 El Roe Other [facility] Other 03-01-2023 14:45-0500 Body weight 58.51 kg El Galvezormack Other [facility] Other 11-13-2022 14:55-0400 Body height 151.13 cm Vale Red Other [facility] Other 11-13-2022 14:55-0400 Body mass index (BMI) [Ratio] 25.74 kg/m2 Vale Red Other [facility] Other 11-13-2022 14:55-0400 Body temperature 96.8 [degF] Vale Red Other [facility] Other 11-13-2022 14:55-0400 Body weight 58.79 kg Vale Red Other [facility] Other 11-13-2022 14:55-0400 Diastolic blood pressure 59 mm[Hg] Vale Red Other [facility] Other 11-13-2022 14:55-0400 Respiratory rate 18 /min Vale Red Other [facility] Other 11-13-2022 14:55-0400 SaO2% (BldA) [Mass fraction] 98 % Vale Red Other [facility] Other 11-13-2022 14:55-0400 Systolic blood pressure 155 mm[Hg] Vale Red Other [facility] Other 06-20-2022 13:00-0500 Body height 151.13 cm El Roe Other [facility] Other 06-20-2022 13:00-0500 Body mass index (BMI) [Ratio] 22.84 kg/m2 El Roe Other [facility] Other 06-20-2022 13:00-0500 Body weight 52.16 kg El Au Other [facility] Other 06-20-2022 13:00-0500 Diastolic blood pressure 103 mm[Hg] El Roe Other [facility] Other 06-20-2022 13:00-0500 Systolic blood pressure 208 mm[Hg] El Roe Other [facility] Other 12-20-2021 14:00-0400 Body height 151.13 cm El Roe Other [facility] Other 12-20-2021 14:00-0400 Body mass index (BMI) [Ratio] 24.62 kg/m2 El Roe Other [facility] Other 12-20-2021 14:00-0400 Body weight 56.25 kg El Au Other [facility] Other 12-20-2021 14:00-0400 Diastolic blood pressure 83 mm[Hg] El Au Other [facility] Other 12-20-2021 14:00-0400 Systolic blood pressure 159 mm[Hg] El Au Other [facility] Other 06-16-2021 14:00-0500 Body height 151.13 cm El Au Other [facility] Other 06-16-2021 14:00-0500 Body mass index (BMI) [Ratio] 26.61 kg/m2 El Au Other [facility] Other 06-16-2021 14:00-0500 Body weight 60.78 kg El Au Other [facility] Other Encounters Encounter Date Encounter Type Care Provider Facility Start: 12-09-2024 End: 12-09-2024 ambulatory BRAD P HOUSE Facility:[facility] Start: 09-10-2024 ambulatory BRAD P HOUSE Facilit y:[facility] Start: 07-23-2024 End: 07-23-2024 ambulatory [facility] Work Phone: Start: 07-23-2024 End: 07-23-2024 Patient encounter procedure [facility] Work Phone: Start: 06-03-2024 ambulatory BRAD P HOUSE Facilit y:[facility] Start: 03-06-2024 End: 03-06-2024 ambulatory BRAD P HOUSE Facility:[facility] Start: 01-22-2024 End: 01-22-2024 Patient encounter procedure DO Brad House Work Phone: [facility] [place] Work Phone: Start: 01-22-2024 End: 01-22-2024 ambulatory Emma Rodas Facility:[facility] Start: 12-13-2023 End: 12-13-2023 Patient encounter procedure DO Brad House Work Phone: [facility] [place] Work Phone: Start: 12-13-2023 End: 12-13-2023 ambulatory DO Brad House Work Phone: [facility] Work Phone: Start: 12-04-2023 End: 12-04-2023 Patient encounter procedure DO Brad House Work Phone: [facility] [place] Work Phone: Start: 12-04-2023 End: 12-04-2023 ambulatory DO Brad House Work Phone: [facility] Work Phone: Start: 11-07-2023 Non-patient / Non-visit DO Brad House Work Phone: [facility] Work Phone: Start: 11-07-2023 End: 11-07-2023 Admission to same day surgery center DO Brad House Work Phone: [facility] Work Phone: Start: 11-07-2023 End: 11-07-2023 ambulatory DO Brad House Work Phone: [facility] Work Phone: Start: 10-19-2023 End: 10-19-2023 Patient encounter procedure DO Brad House Work Phone: [facility] [place] Work Phone: Start: 10-19-2023 End: 10-19-2023 ambulatory DO Brad House Work Phone: [facility] Work Phone: Start: 09-27-2023 End: 09-27-2023 ambulatory [facility] Work Phone: Start: 09-27-2023 End: 09-27-2023 Patient encounter procedure [facility] Work Phone: Start: 09-20-2023 Non-patient / Non-visit DO Brad Dean Work Phone: [facility] Work Phone: Start: 08-27-2023 End: 08-27-2023 ambulatory SIVA DUMONT Not Available Start: 03-01-2023 End: 03-01-2023 ambulatory El Au Other [facility] Other Start: 03-01-2023 Office outpatient visit 15 minutes El Au [facility] Start: 11-13-2022 End: 11-13-2022 ambulatory Vale Red Other [facility] Other Start: 11-13-2022 Office outpatient visit 15 minutes Vale Red [facility] Start: 06-20-2022 End: 06-20-2022 ambulatory El Au Other [facility] Other Start: 06-20-2022 Office outpatient visit 15 minutes El Au [facility] Start: 05-17-2022 End: 05-17-2022 ambulatory El Au Other [facility] Other Start: 05-17-2022 Telephone encounter El baker [facility] Start: 05-09-2022 End: 05-10-[address] Niya AU Facility:[facility] Start: 05-05-2022 End: 05-05-2022 ambulatory El Au Other [facility] Other Start: 05-05-2022 Telephone encounter El baker [facility] Start: 12-20-2021 End: 12-20-2021 ambulatory El Au Other [facility] Other Start: 12-20-2021 Office outpatient visit 15 minutes El Au [facility] Start: 12-20-2021 End: 12-20-2021 Patient encounter procedure DO Brad Dean Work Phone: [facility] [place] Start: 08-30-2021 End: 08-31-[address] BRAD DAEN Facility: Start: 06-16-2021 End: 06-16-2021 ambulatory El Au Other [facility] Other Start: 06-16-2021 Office outpatient visit 15 minutes El Au [facility] Procedures Date Procedure Procedure Detail Performing Clinician Start: 12-04-2023 Diagnostic radiography of abdomen DO Yareli Dean Work Phone: Start: 11-07-2023 Esophagogastroduodenoscopy DO Brad Archer use Work Phone: Plan of Treatment Date Care Activity Detail Author Start: 11-07-2023 [facility] Campylobacter coli+jejuni+upsaliensis DNA [Presence] in Stool by MARIJA with non-probe detection [facility] Escherichia coli enteropathogenic eae gene [Presence] in Stool by MARIJA with non-probe [facility] Escherichia coli enterotoxigenic ltA+st1a+st1b genes [Presence] in Stool by MARIJA with [facility] Escherichia coli O15 7 DNA [Presence] in Stool by MARIJA with non-probe detection [facility] Escherichia coli Stx 1 and Stx2 toxin stx1+stx2 genes [Presence] in Stool by MARIJA with non-probe detection [facility] Fluoroscopy of upper gastrointestinal tract [facility] Infectious agent gen otype identification [facility] Patient Education Gastritis (DC) Hiatal Hernia (DC) Know your Meds [facility] Work Phone: Plesiomonas shigello ides DNA [Presence] in Stool by MARIJA with non-probe detection [facility] Salmonella enterica+ bongori DNA [Presence] in Stool by MARIJA with non-probe detection [facility] Shigella species+EIE C invasion plasmid antigen H ipaH gene [Presence] in Stool by MARIJA [facility] Vibrio cholerae DNA [Presence] in Stool by MARIJA with non-probe detection [facility] Vibrio cholerae+parahaemolyticus+vu lnificus DNA [Presence] in Stool by MARIJA with non-probe detection [facility] Payers Date Payer Category Payer Unknown [id number] [id number] Self-pay [id number] 2016 Medicare [id number] 1959 Medicare [id number] 2.1 [id number] 1959 Private Health Insurance [id number] 1942 Unknown [id number] 2.16.84 [id number] 1942 Unknown [id number] 2.16.84 [id number] 1942 Unknown [id number] 2.16.84 [id number] 1942 Unknown [id number] 2.16.8 [id number] 1942 Unknown [id number] 2.16.8 [id number] 1942 Unknown [id number] 2.16.8 [id number] 1940 Unknown [id number] 2.16.8 [id number] Unknown [id number] 2.16.8 [id number] Unknown [id number] 2.16.8 [id number] Unknown [id number] 2.16.8 [id number] Unknown [id number] 2.16.8 [id number] Unknown [id number] 2.16.8 [id number] Social History Date Type Detail Facility Unknown if ever smoked [facility] [employer] Other Sex Assigned At Sex Assigned At Bir th [employer] [facility] [employer] Other Start: 12-03-2018 Tobacco smoking status NHIS Smoker (finding) [facility] Start: 1940 Sex Assigned At Female F [facility] Start: 11-07-2023 Tobacco smoking status NHIS Ex-smoker (finding) [facility] Start: 07-23-2024 Sex Female (finding) [facility] Medical Equipment Procedure Code Equipment Code Equipment Origin al Text Equipment Identifier Dates Capsule endoscopy, for patency of lumen evaluation CAPSULE PILLCAM SB FDA Start: 10-03-2018 Capsule endoscopy, for patency of lumen evaluation CAPSULE PILLCAM SB FDA Start: 10-03-2018 Capsule endoscopy, for patency of lumen evaluation CAPSULE PILLCAM SB FDA Start: 10-03-2018 Capsule endoscopy, for patency of lumen evaluation CAPSULE PILLCAM SB FDA Start: 10-03-2018 Capsule endoscopy, for patency of lumen evaluation CAPSULE PILLCAM SB FDA Start: 10-03-2018 Capsule endoscopy, for patency of lumen evaluation CAPSULE PILLCAM SB FDA Start: 10-03-2018 Capsule endoscopy, for patency of lumen evaluation CAPSULE PILLCAM SB FDA Start: 10-03-2018 Capsule endoscopy, for patency of lumen evaluation CAPSULE PILLCAM SB FDA Start: 10-03-2018 Goals Date Patient Goal Desired Activity /State Clinical Notes 06-16-2021 to 07-29-2024 Note Date & Type Note Facility 07-29-2024 Note - From: BRAD DEAN DO To: [facility] Clinical [place] ([facility]); Sent: 07/29/2024 12:59:46 EDT Subject: FW: Medication Management Due Date/Time: 07/30/2024 10:35:00 EDT Caller Name: YADIRA LAMB; Caller Number: H From: [id number] To: BRAD DEAN DO Sent: July 29, 2024 9:35:59 AM CDT Subject: Medication Management Due: July 30, 2024 12:49:55 AM CDT On Hold Pending [facility]: clopidogrel (clopidogrel 75 mg oral tablet), 1 tab(s) Oral Daily Quantity: 90 tab(s) Days Supply: 0 Refills: 0 Substitutions Allowed Notes from Pharmacy: Dispensed Drug: clopidogrel (clopidogrel 75 mg oral tablet), TAKE 1 TABLET BY MOUTH DAILY Quantity: 90 tab(s) Days Supply: 90 Refills: 1 Substitutions Allowed Notes from Pharmacy: On Hold Pending [facility]: LORazepam (LORazepam 0.5 mg oral tablet), 1 tab(s) Oral TID,x30 day(s) Quantity: 90 tab(s) Days Supply: 0 Refills: 0 Substitutions Allowed Notes from Pharmacy: Dispensed Drug: LORazepam (LORazepam 0.5 mg oral tablet), TAKE 1 TABLET BY MOUTH THREE TIMES DAILY Quantity: 90 tab(s) Days Supply: 30 Refills: 1 Substitutions Allowed Notes from Pharmacy: On Hold Pending Signature Drug: amLODIPine (amLODIPine 10 mg oral tablet), 1 tab(s) Oral Daily Quantity: 90 tab(s) Days Supply: 0 Refills: 0 Substitutions Allowed Notes from Pharmacy: Dispensed Drug: amLODIPine (amLODIPine 10 mg oral tablet), TAKE 1 TABLET BY MOUTH DAILY Quantity: 90 tab(s) Days Supply: 90 Refills: 1 Substitutions Allowed Notes from Pharmacy: Submitted: Order:amLODIPine (amLODIPine 10 mg oral tablet) 1 tab(s) Oral Daily Qty: 90 tab(s) Days Supply: 90 Refills: 1 Substitutions Allowed Route To Pharmacy - [facility] Signed by Alondra Kaur 07/29/2024 14:06:00 EDT Submitted: Complete:amLODIPine (amLODIPine 10 mg oral tablet) Signed by Alondra Kaur 07/29/2024 14:06:00 EDT Not Approved: New Rx to follow amLODIPine (amlodipine 10 mg tablet) TAKE 1 TABLET BY MOUTH DAILY Qty: 90 tab(s) Days Supply: 90 Refills: 1 Substitutions Allowed Route To Pharmacy - [facility] Signed by Alondra Kaur Submitted: Order:clopidogrel (clopidogrel 75 mg oral tablet) 1 tab(s) Oral Daily Qty: 90 tab(s) Days Supply: 90 Refills: 1 Substitutions Allowed Route To Pharmacy - [facility] Signed by Alondra Kaur 07/29/2024 14:06:00 EDT Submitted: Complete:clopidogrel (clopidogrel 75 mg oral tablet) Signed by Alondra Kaur 07/29/2024 14:07:00 EDT Not Approved: New Rx to follow clopidogrel (clopidogrel 75 mg tablet) TAKE 1 TABLET BY MOUTH DAILY Qty: 90 tab(s) Days Supply: 90 Refills: 1 Substitutions Allowed Route To Pharmacy - [facility] Signed by Alondra Kaur From: Alondra Kaur To: [facility] Sent: 07/29/2024 14:07:27 EDT Subject: FW: Medication Management Not Approved: proposed to provider LORazepam (lorazepam 0.5 mg tablet) TAKE 1 TABLET BY MOUTH THREE TIMES DAILY Qty: 90 tab(s) Days Supply: 30 Refills: 1 Substitutions Allowed Route To Pharmacy - [facility] Signed by Alondra Kaur [facility] 07-09-2024 Note Entered by TAYLOR DEAN DO on July 09, 2024 07:30:57 EDT From: BRAD DEAN DO To: [facility] Sent: 07/09/2024 07:30:57 EDT Subject: Medication Management Submitted: Complete:methocarbamol (methocarbamol 500 mg oral tablet) Signed by BRAD DEAN DO 07/09/2024 07:30:00 EDT Approved with modifications: methocarbamol (methocarbamol 500 mg tablet) TAKE 1 TABLET BY MOUTH THREE TIMES DAILY Qty: 30 tab(s) Days Supply: 10 Refills: 1 Substitutions Allowed Route To Pharmacy - [facility] From: [facility] To: BRAD DEAN DO Sent: July 08, 2024 5:45:17 PM CDT Subject: Medication Management Due: July 09, 2024 12:09:22 AM CDT On Hold Pending [facility]: methocarbamol (methocarbamol 500 mg oral tablet), 1 tab(s) Oral TID Quantity: 30 tab(s) Days Supply: 0 Refills: 0 Substitutions Allowed Notes from Pharmacy: Dispensed Drug: methocarbamol (methocarbamol 500 mg oral tablet), TAKE 1 TABLET BY MOUTH THREE TIMES DAILY Quantity: 30 tab(s) Days Supply: 10 Refills: 1 Substitutions Allowed Notes from Pharmacy: [facility] 07-01-2024 Note - From: BRAD DEAN DO To: [facility] Clinical Pool ([facility]); Sent: 07/01/2024 12:20:30 EDT Subject: FW: Medication Management Due Date/Time: 07/02/2024 10:12:00 EDT Caller Name: YADIRA LAMB; Caller Number: H From: [id number] To: BRAD DEAN DO Sent: July 01, 2024 9:12:52 AM CDT Subject: Medication Management Due: July 02, 2024 9:00:15 AM CDT On Hold Pending [facility]: rosuvastatin (rosuvastatin 5 mg oral tablet), TAKE 1 TABLET BY MOUTH DAILY Quantity: 90 tab(s) Days Supply: 90 Refills: 1 Substitutions Allowed Notes from Pharmacy: Dispensed Drug: rosuvastatin (rosuvastatin 5 mg oral tablet), TAKE 1 TABLET BY MOUTH DAILY Quantity: 90 tab(s) Days Supply: 90 Refills: 1 Substitutions Allowed Notes from Pharmacy: On Hold Pending [facility]: propranolol (propranolol 60 mg oral capsule, extended release), TAKE 1 CAPSULE BY MOUTH DAILY Quantity: 30 cap(s) Days Supply: 30 Refills: 5 Substitutions Allowed Notes from Pharmacy: Dispensed Drug: propranolol (propranolol 60 mg oral capsule, extended release), TAKE 1 CAPSULE BY MOUTH DAILY Quantity: 30 cap(s) Days Supply: 30 Refills: 1 Substitutions Allowed Notes from Pharmacy: On Hold Pending [facility]: LORazepam (LORazepam 0.5 mg oral tablet), 1 tab(s) Oral TID,x30 day(s) Quantity: 90 tab(s) Days Supply: 0 Refills: 0 Substitutions Allowed Notes from Pharmacy: Dispensed Drug: LORazepam (LORazepam 0.5 mg oral tablet), TAKE 1 TABLET BY MOUTH THREE TIMES DAILY Quantity: 90 tab(s) Days Supply: 30 Refills: 1 Substitutions Allowed Notes from Pharmacy: Submitted: Order:rosuvastatin (rosuvastatin 5 mg oral tablet) 1 tab(s) Oral Daily Qty: 30 tab(s) Refills: 1 Substitutions Allowed Route To Pharmacy - [id number] Signed by Alondra Shaffer 07/01/2024 14:01:00 EDT Submitted: Complete:rosuvastatin (rosuvastatin 5 mg oral tablet) Signed by Alondra Shaffer 07/01/2024 14:01:00 EDT Not Approved: New Rx to follow rosuvastatin (rosuvastatin 5 mg tablet) TAKE 1 TABLET BY MOUTH DAILY Qty: 90 tab(s) Days Supply: 90 Refills: 1 Substitutions Allowed Route To Pharmacy - [facility] Signed by Alondra Shaffer Submitted: Order:propranolol (propranolol 60 mg oral capsule, extended release) 1 cap(s) Oral Daily Qty: 30 cap(s) Days Supply: 30 Refills: 1 Substitutions Allowed Route To Pharmacy - [facility] Signed by Alondra Shaffer 07/01/2024 14:01:00 EDT Submitted: Complete:propranolol (propranolol 60 mg oral capsule, extended release) Signed by Alondra Shaffer 07/01/2024 14:01:00 EDT Not Approved: New Rx to follow propranolol (propranolol ER 60 mg capsule,24 hr,extended release) TAKE 1 CAPSULE BY MOUTH DAILY Qty: 30 cap(s) Days Supply: 30 Refills: 1 Substitutions Allowed Route To Pharmacy - [facility] Signed by Alondra Shaffer From: Alondra Shaffer To: [facility] Sent: 07/01/2024 14:03:35 EDT Subject: FW: Medication Management Not Approved: proposed to provider LORazepam (lorazepam 0.5 mg tablet) TAKE 1 TABLET BY MOUTH THREE TIMES DAILY Qty: 90 tab(s) Days Supply: 30 Refills: 1 Substitutions Allowed Route To Pharmacy - [facility] Signed by Alondra Shaffer [facility] 06-02-2024 Note Entered by TAYLOR DEAN DO on June 02, 2024 13:21:37 EST From: BRAD DEAN DO To: [facility] Sent: 06/02/2024 13:21:37 EST Subject: Medication Management Submitted: Complete:rOPINIRole (rOPINIRole 0.5 mg oral tablet) Signed by BRAD DEAN DO 06/02/2024 13:21:00 EST Approved rOPINIRole (ropinirole 0.5 mg tablet) TAKE 1 TABLET BY MOUTH DAILY Qty: 30 tab(s) Days Supply: 30 Refills: 2 Substitutions Allowed Route To Pharmacy - [facility] From: [facility] To: BRAD DEAN DO Sent: June 02, 2024 12:17:34 PM [employer] Subject: Medication Management Due: June 03, 2024 12:02:14 AM [employer] On Hold Pending [facility]: rOPINIRole (rOPINIRole 0.5 mg oral tablet), 1 tab(s) Oral Daily Quantity: 30 tab(s) Days Supply: 0 Refills: 1 Substitutions Allowed Notes from Pharmacy: Dispensed Drug: rOPINIRole (rOPINIRole 0.5 mg oral tablet), TAKE 1 TABLET BY MOUTH DAILY Quantity: 30 tab(s) Days Supply: 30 Refills: 2 Substitutions Allowed Notes from Pharmacy: [facility] 05-02-2024 Note - From: BRAD DEAN DO To: [facility] Clinical [place] ([facility]); Sent: 05/01/2024 16:50:01 EST Subject: FW: Medication Management Due Date/Time: 05/02/2024 15:45:00 EST Caller Name: YADIRA LAMB; Caller Number: H From: [id number] To: BRAD DEAN DO Sent: May 01, 2024 2:45:48 PM [employer] Subject: Medication Management Due: May 02, 2024 12:18:18 AM [employer] On Hold Pending [facility]: LORazepam (LORazepam 0.5 mg oral tablet), 1 tab(s) Oral TID,x30 day(s) Quantity: 90 tab(s) Days Supply: 0 Refills: 0 Substitutions Allowed Notes from Pharmacy: Dispensed Drug: LORazepam (LORazepam 0.5 mg oral tablet), TAKE 1 TABLET BY MOUTH THREE TIMES DAILY Quantity: 90 tab(s) Days Supply: 30 Refills: 0 Substitutions Allowed Notes from Pharmacy: From: Alondra Shaffer To: [facility] Sent: 05/02/2024 08:43:47 EST Subject: FW: Medication Management Not Approved: proposed to provider LORazepam (lorazepam 0.5 mg tablet) TAKE 1 TABLET BY MOUTH THREE TIMES DAILY Qty: 90 tab(s) Days Supply: 30 Refills: 0 Substitutions Allowed Route To Pharmacy - [facility] Signed by Edmund [facility] 03-24-2024 Note Entered by TAYLOR DEAN DO on March 24, 2024 09:47:06 EST From: BRAD DEAN DO To: [facility] Sent: 03/24/2024 09:47:06 EST Subject: Medication Management Submitted: Complete:fexofenadine (fexofenadine 180 mg oral tablet) Signed by BRAD DEAN DO 03/24/2024 09:47:00 EST Approved with modifications: fexofenadine (fexofenadine 180 mg tablet) TAKE 1 TABLET BY MOUTH DAILY Qty: 30 tab(s) Days Supply: 30 Refills: 5 Substitutions Allowed Route To Pharmacy - [facility] Note from Pharmacy: This prescription was filled on 03/04/2024. Any refills authorized will be placed on file. From: [facility] To: BRAD DEAN DO Sent: March 24, 2024 7:01:02 AM [employer] Subject: Medication Management Due: March 25, 2024 12:06:32 AM [employer] On Hold Pending [facility]: fexofenadine (fexofenadine 180 mg oral tablet), TAKE 1 TABLET BY MOUTH DAILY Quantity: 30 tab(s) Days Supply: 30 Refills: 5 Substitutions Allowed Notes from Pharmacy: Dispensed Drug: fexofenadine (fexofenadine 180 mg oral tablet), TAKE 1 TABLET BY MOUTH DAILY Quantity: 30 tab(s) Days Supply: 30 Refills: 5 Substitutions Allowed Notes from Pharmacy: This prescription was filled on 03/04/2024. Any refills authorized will be placed on file. [facility] 03-02-2024 Note Entered by TAYLOR DEAN DO on March 02, 2024 15:19:49 EST From: BRAD DEAN DO To: [facility] Sent: 03/02/2024 15:19:49 EST Subject: Medication Management Submitted: Complete:hyoscyamine (hyoscyamine 0.125 mg oral tablet) Signed by BRAD DEAN DO 03/02/2024 15:19:00 EST Approved hyoscyamine (hyoscyamine sulfate 0.125 mg tablet) TAKE 1 TABLET BY MOUTH THREE TIMES DAILY Qty: 30 tab(s) Days Supply: 10 Refills: 2 Substitutions Allowed Route To Pharmacy - [facility] Note from Pharmacy: This prescription was filled on 03/01/2024. Any refills authorized will be placed on file. From: [facility] To: BRAD DEAN DO Sent: March 01, 2024 9:43:35 AM [employer] Subject: Medication Management Due: March 02, 2024 1:39:53 AM [employer] On Hold Pending [facility]: hyoscyamine (hyoscyamine 0.125 mg oral tablet), TAKE 1 TABLET BY MOUTH THREE TIMES DAILY Quantity: 30 tab(s) Days Supply: 10 Refills: 2 Substitutions Allowed Notes from Pharmacy: This prescription was filled on 12/27/2023. Any refills authorized will be placed on file. Dispensed Drug: hyoscyamine (hyoscyamine 0.125 mg oral tablet), TAKE 1 TABLET BY MOUTH THREE TIMES DAILY Quantity: 30 tab(s) Days Supply: 10 Refills: 2 Substitutions Allowed Notes from Pharmacy: This prescription was filled on 03/01/2024. Any refills authorized will be placed on file. [facility] 02-13-2024 Note Entered by TAYLOR DEAN DO on February 13, 2024 09:05:36 EDT From: BRAD DEAN DO To: [facility] Sent: 02/13/2024 09:05:36 EDT Subject: Medication Management Submitted: Complete:irbesartan (irbesartan 150 mg oral tablet) Signed by BRAD DEAN DO 02/13/2024 09:05:00 EDT Approved with modifications: irbesartan (irbesartan 150 mg tablet) TAKE 1 TABLET BY MOUTH EVERY DAY Qty: 90 tab(s) Days Supply: 90 Refills: 1 Substitutions Allowed Route To Pharmacy - [facility] Note from Pharmacy: This prescription was filled on 11/25/2023. Any refills authorized will be placed on file. From: [facility] To: BRAD DEAN DO Sent: February 13, 2024 7:02:43 AM CDT Subject: Medication Management Due: February 14, 2024 12:10:14 AM CDT On Hold Pending [facility] Drug: irbesartan (irbesartan 150 mg oral tablet), 1 tab(s) Oral Daily,Instr:TAKE 1 TABLET BY MOUTH EVERY DAY Quantity: 90 tab(s) Days Supply: 0 Refills: 0 Substitutions Allowed Notes from Pharmacy: Dispensed Drug: irbesartan (irbesartan 150 mg oral tablet), TAKE 1 TABLET BY MOUTH EVERY DAY Quantity: 90 tab(s) Days Supply: 90 Refills: 1 Substitutions Allowed Notes from Pharmacy: This prescription was filled on 11/25/2023. Any refills authorized will be placed on file. [facility] 01-02-2024 Note Entered by TAYLOR DEAN DO on January 02, 2024 12:15:37 EDT From: BRAD DEAN DO To: [facility] Sent: 01/02/2024 12:15:37 EDT Subject: Medication Management Submitted: Complete:rosuvastatin (rosuvastatin 5 mg oral tablet) Signed by BRAD DEAN DO 01/02/2024 12:15:00 EDT Approved with modifications: rosuvastatin (rosuvastatin 5 mg tablet) TAKE 1 TABLET BY MOUTH DAILY Qty: 90 tab(s) Days Supply: 90 Refills: 1 Substitutions Allowed Route To Pharmacy - [facility] From: [facility] To: BRAD DEAN DO Sent: January 02, 2024 9:38:29 AM CDT Subject: Medication Management Due: January 03, 2024 12:28:47 AM CDT On Hold Pending [facility]: rosuvastatin (rosuvastatin 5 mg oral tablet), 1 tab(s) Oral Daily,Instr:TAKE 1 TABLET BY MOUTH DAILY Quantity: 90 tab(s) Days Supply: 0 Refills: 0 Substitutions Allowed Notes from Pharmacy: Dispensed Drug: rosuvastatin (rosuvastatin 5 mg oral tablet), TAKE 1 TABLET BY MOUTH DAILY Quantity: 90 tab(s) Days Supply: 90 Refills: 1 Substitutions Allowed Notes from Pharmacy: [facility] 12-27-2023 Note Entered by TAYLOR DEAN DO on December 27, 2023 16:10:36 EDT From: BRAD DEAN DO To: [facility] Sent: 12/27/2023 16:10:36 EDT Subject: Medication Management Submitted: Complete:hyoscyamine (hyoscyamine 0.125 mg oral tablet) Signed by BRAD DEAN DO 12/27/2023 16:10:00 EDT Approved with modifications: hyoscyamine (hyoscyamine sulfate 0.125 mg tablet) TAKE 1 TABLET BY MOUTH THREE TIMES DAILY Qty: 30 tab(s) Days Supply: 10 Refills: 2 Substitutions Allowed Route To Pharmacy - [facility] Note from Pharmacy: This prescription was filled on 12/27/2023. Any refills authorized will be placed on file. From: [facility] To: BRAD DEAN DO Sent: December 27, 2023 2:48:44 PM CDT Subject: Medication Management Due: December 28, 2023 12:12:51 AM CDT On Hold Pending [facility]: hyoscyamine (hyoscyamine 0.125 mg oral tablet), TAKE 1 TABLET BY MOUTH THREE TIMES DAILY Quantity: 30 tab(s) Days Supply: 10 Refills: 2 Substitutions Allowed Notes from Pharmacy: This prescription was filled on 11/20/2023. Any refills authorized will be placed on file. Dispensed Drug: hyoscyamine (hyoscyamine 0.125 mg oral tablet), TAKE 1 TABLET BY MOUTH THREE TIMES DAILY Quantity: 30 tab(s) Days Supply: 10 Refills: 2 Substitutions Allowed Notes from Pharmacy: This prescription was filled on 12/27/2023. Any refills authorized will be placed on file. [facility] 11-07-2023 History and physical note Note Date/Time November 07, 2023 12:22pm [facility] [address] [place] [address] Gastroenterology H&P Signed Patient: Yadira Lamb MR#: [id number] : 1940 Acct:[id number] Age/Sex: 83 / F Adm Date: 4 Loc: Room: Type: [facility] Attending Dr: Emma Rodas DO Copies to: Emma Rodas, DO Slainas Hastings, Date of Service: 11/07/2023 HISTORY & PHYSICAL: Patient's history with special attention to the cardiovascular, pulmonary systems and the current problem was reviewed with the patient immediately prior to the procedure. Present medications and doses reviewed in the EMR. Allergies and pertinent laboratory tests were also reviewedat this time in the EMR. The physical examination, as below, was then performed. Indication, assessment and HPI: 83-year-old female who presents for EGD for nausea, abdominal pain, bloating, history of hiatal hernia. Last EGD was in 2019. Family history of GI malignancy? No PHYSICAL EXAMINATION General appearance: cooperative, NAD Skin: No jaundice, no rash or lesions Head: NCAT Eyes: Anicteric Neck: Supple Lungs: Normal respiratory effort, no use of accessory muscles Abdomen: Soft, nondistended Neuro: No focal deficits, Ox3. REVIEW OF SYSTEMS Constitutional: Denies malaise, fevers Cardiovascular: Denies chest pain, palpitations Respiratory: Denies shortness of breath, wheezing Gastrointestinal: As per HPI Genitourinary: Denies dysuria, polyuria Musculoskeletal: Denies joint swelling, joint stiffness Neurological: Denies confusion, numbness, tingling Endocrine: Denies fatigue Written informed consent obtained from the patient. Risks (including but not limited to perforation, infection, bloating, bleeding, need for emergent surgeryand loss of life), benefits and alternatives explained and questions answered. The patient verbalized understanding. Based on history patient is an appropriate candidate for the procedure. Emma Rodas DO Documented By: Emma Rodas DO 11/07/23 1221 Signed By: <Electronically signed by Emma Rodas DO> 11/07/23 1221 [facility] Work Phone: 1(380) 900-543007-24-2024 [facility]* Encounter Date Diagnosis Assessment Notes Treatment Notes Treatment Clinical Notes Feb, Iron deficiency anemia (ICD-10 - D50.9) The patient states she has had lab work at [facility] 3-4 months ago her labs were reported to be in good standing. We will repeat lab studies now. Feb, Constipation (ICD-10 - K59.00) The patient is using Dicyclomine & probiotics. She needs a refill of Dicyclomine. She has cut the probiotic back to every other day due to some constipation. Return visit here in nine months [facility] Other 07-31-2023 Evaluation note* Encounter Date Diagnosis Assessment Notes [...] for recheck of hypertension following ER visit. [facility] Other 03-07-2023 Evaluation note* Encounter Date Diagnosis [...] CONTINUE ON DICYCLOMINE, REFILL SENT TO PHARMACY. [facility] Other 01-20-2023 Evaluation note* Encounter Date Diagnosis Assessment Notes Treatment Notes Treatment Clinical Notes Apr, Iron (Fe) deficiency anemia (ICD-10 - D50.9) [facility] Other 09-06-2022 Evaluation note* Encounter Date Diagnosis Assessment Notes Treatment Notes Treatment Clinical Notes Dec, Iron deficiency anemia (ICD-10 - D50.9) CONTINUE IRON DIRECTED RTO 6 MONTHS Dec, Constipation (ICD-10 - K59.00) Dec, Abdominal cramping (ICD-10 - R10.9) CONTINUE DICYCLOMINE FOUR TIMES A DAY [facility] Other 03-03-2022 Evaluation note* Encounter Date Diagnosis Assessment Notes Treatment Notes Treatment Clinical Notes Jun, Iron deficiency anemia (ICD-10 - D50.9) Continue iron Jun, Constipation (ICD-10 - K59.00) Jun, Abdominal cramping (ICD-10 - R10.9) [facility] Other Evaluation noteNo assessment information available [facility] Work Phone: Evaluation noteNo InformationNort [employer] Other Evaluation note* Diagnosis Onset Date Resolution Status Abdominal cramping acute Constipation acute Dysphagia acute Hiatal hernia acute Nausea acute [facility] Work Phone: Evaluation note* Diagnosis Onset Date Resolution Status Abdominal cramping acute Constipation acute Hiatal hernia acute Nausea acute [facility] Work Phone: History general Narrative - Reported* Type Description Date Medical History [facility] Medical History bladder prolapse Medical History claudication Surgical History partial hysterectomy-ovaries re 1974 Surgical History eye surgery 2019 Surgical History colposcopy Surgical History shunts in both legs 2020 Hospitalization History see above Hospitalization History [place]VA[place]back [place] Hospitalization History [facility] [employer] Other History general Narrative - Reported* Type Description Date Medical History H[facility]ORY OF [facility] [place] Medical History bladder prolapse Medical History claudication Surgical History partial hysterectomy-ovaries re main 1974 Surgical History eye surgery 2019 Surgical History colposcopy Surgical History shunts in both legs 2020 Hospitalization History see above Hospitalization History [place] Hospitalization History [facility] Hospitalization History ER October 2022 [facility] [employer] [facility] [employer] Other Chief Complaint and Reason for Visit Chief Complaint D50.9 Chief Complaint 9 month follow up Reason for Visit Abdominal cramping Constipation Dysphagia Hiatal hernia Nausea Chief Complaint 9 month follow up K44.9 R13.10 R10.9 R11.0 Reason for Visit Abdominal cramping Constipation Hiatal hernia Nausea Chief Complaint 9 month follow up K44.9 R13.10 R10.9 R11.0 nausea/abd pain nausea/abd pain Reason for Visit Abdominal cramping Constipation Hiatal hernia Nausea Chief Complaint 9 month follow up K44.9 R13.10 R10.9 R11.0 nausea/abd pain nausea/abd pain r19.7 Reason for Visit Abdominal cramping Constipation Hiatal hernia Nausea Chief Complaint 9 month follow up K44.9 R13.10 R10.9 R11.0 nausea/abd pain nausea/abd pain r19.7 R19.7 Reason for Visit Abdominal cramping Constipation Hiatal hernia Nausea Chief Complaint nausea/abd pain nausea/abd pain r19.7 R19.7 k59.00 e11.0 Chief Complaint Admit Date diarrhea July 23, 2024 12:4 9pm Family History No Family History Records Found Relationship Condition Age at Onset Recorded Date/T reji father History of open heart surgery Unknown Not Specified Malignant neoplasm of breast Unknown Relationship Condition Age at Onset Recorded Date/T reji father History of open heart surgery Unknown Not Specified Malignant neoplasm of breast Unknown brother Hypertension Unknown father Unknown Heart disease Unknown Not Specified Malignant neoplasm Unknown Unknown natural son Diabetes mellitus Unknown sister Hypertension Unknown Relationship Condition Age at Onset Recorded Date/T reji father History of open heart surgery Unknown mother Malignant neoplasm of breast Unknown brother Hypertension Unknown father Unknown Heart disease Unknown mother Malignant neoplasm Unknown Unknown son Diabetes mellitus Unknown sister Hypertension Unknown Relationship Condition Age at Onset Recorded Date/T reji father History of open heart surgery Unknown Unknown Heart disease Unknown mother Malignant neoplasm of breast Unknown Malignant neoplasm Unknown brother Hypertension Unknown son Diabetes mellitus Unknown sister Hypertension Unknown Advance Directives No Advanced Directives Records [...] (unrecognized sec tion and content) Team Status: Active Member Role Status Dates Brad Dean DO Primary Care Provider Active Team Status: Inactive Member Role Status Dates Brad Dean DO Primary Care Provider Active Start: November 07, 2023 End: November 07, 2023 Emma L Ly , DO Attending Provider Active St art: November 07, 2023 End: November 07, 2023 Team Status: Active Member Role Status Dates Brad Dean DO Primary Care Provider Active Start: November 07, 2023 Emma L Ly , DO Attending Provider, Other Provider Active Start: November 07, 2023 Team Status: Inactive Member Role Status Dates Brad Dean DO Primary Care Provider Active Start: December 04, 2023 End: December 04, 2023 Emma L Ly , DO Attending Provider Active St art: December 04, 2023 End: December 04, 2023 Team Status: Inactive Member Role Status Dates Brad Dean DO Primary Care Provider Active Start: December 13, 2023 End: December 13, 2023 Emma L Ly , DO Attending Provider Active St art: December 13, 2023 End: December 13, 2023 Team Status: Inactive Member Role Status Dates Brad Dean DO Primary Care Provider Active Start: January 22, 2024 End: January 22, 2024 Emma L Ly , DO Attending Provider Active St art: January 22, 2024 End: January 22, 2024 Team Status: Active Member Role Status Dates Brad Dean DO Primary Care Provider Active Start: September 20, 2023 Mark Gomes Attending Provider Active Sta rt: September 20, 2023 Team Status: Inactive Member Role Status Dates Emma L Ly , DO Attending Provider Active St art: September 27, 2023 End: September 27, 2023 Brad Dean DO Primary Care Provider Active Start: September 27, 2023 End: September 27, 2023 Team Status: Inactive Member Role Status Dates Brad Dean DO Primary Care Provider Active Start: October 19, 2023 End: October 19, 2023 Emma L Ly , DO Attending Provider Active St art: October 19, 2023 End: October 19, 2023 Team Status: Inactive Member Role Status Dates Brad Dean DO Primary Care Provider Active El Au MD Attending Provider Active Team Status: Inactive Member Role Status Dates Brad Dean DO Primary Care Provider Active Start: July 23, 2024 End: July 23, 2024 Emma L Ly , DO Attending Provider Active St art: July 23, 2024 End: July 23, 2024 Goals (unrecognized section and content) Goals may be documented in a n alternate section INFORMATION SOURCE (unrecogn ized section and content) DATE CREATED AUTHOR 05/11/2022 [facility] DATE CREATED AUTHOR AUTHOR'S ORGANIZ ATION 08/28/2023 [facility] EPIC DATE CREATED AUTHOR AUTHOR'S ORGANIZ ATION 01/24/2024 [facility] DATE CREATED AUTHOR AUTHOR'S ORGANIZ ATION 12/11/2024 [facility] FOR RECORDS PERTAINING TO PATIENTS WHO ARE [...] BE BASED ON THE PRIMARY CLINICAL RECORDS. [facility], [facility]. provides no warranty or guarantee of the accuracy or completeness of information in this document.
--- NOTE | 2024-12-16 08:27 | XR_ITS ---
The [address] [address] Patient Name: RANJAN LAMB MRN: [id number] date: 1940 Sex: F Assigned Patient Location: ER Current Patient Location: ER Accession/Order Number: [id number] Exam Date: 12/16/2024 09:00 Report Date: 12/16/2024 09:11 At the request of: KAPIL ROBIN DO Procedure: XR chest 2V XR chest 2V 12/16/2024 9:05 AM SIGNS AND SYMPTOMS: Nausea, hypertension PROTOCOL: Frontal and lateral radiograph of the chest COMPARISON: 07/31/2023 FINDINGS: The trachea is midline. Atherosclerotic changes are noted in the thoracic aorta. The heart and mediastinal structures are within normal limits. There is linear scarring or atelectasis at the left lung base. There is mild elevation of the right hemidiaphragm. Similar to the previous exam there is interposition of the colon beneath the right hemidiaphragm. There is a hiatal hernia with gastric bubble in the lower mediastinum. This is similar to the previous exams. The bony thorax is intact. XR/XR chest 2V IMPRESSION: No acute cardiopulmonary pathology. Chronic findings are redemonstrated as above. Impression dictated by: Aditya Styles M.D. 12/16/2024 9:11 AM Dictation Location: [facility] Electronically authenticated by: [id number] Y Date: 12/16/2024 09:11
--- NOTE | 2024-12-16 08:27 | ECG_ITS ---
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: : 1940 Requested By: [id number] Order Number: [id number] Reading MD: CAREY BERNAL Measurements Intervals [place] Rate: 67 P: 70 OK: 208 QRS: -9 QRSD: 108 T: 26 QT: 390 QTc: 405 Interpretive Statements 1100 Sinus rhythm 1470 with occasional supraventricular premature complexes 2440 Incomplete right bundle branch block Possible septal infarct age indeterminate [address] depression 4164 Twave abnormality, possible anterior ischemia 9150 abnormal ECG Compared to ECG 09/20/2023 14:54:04 Incomplete right bundle-branch block now present ST (T wave) deviation now present Possible ischemia now present Right bundle-branch block no longer present Electronically Signed On 12-17-2024 13:50:29 EDT by CAREY BERNAL
--- NOTE | 2024-12-16 08:32 | ED.GENADUL1 ---
HPI HPI - General Adult General Chief complaint: Nausea/Vomiting/Diarrhea Stated complaint: NAUSEA Time Seen by Provider: 12/16/24 07:52 Source: patient Mode of arrival: walk-in History of Present Illness HPI narrative: Patient is an 84-year-old female presenting to the emergency department for evaluation of nausea and vomiting. Patient states that in the melanite she felt hot and cold and sweaty. She had 1-2 episodes of nonbilious, nonbloody vomiting as well. She states she has notable abdominal cramping, but is not currently experiencing any abdominal pain. She denies history of intra-abdominal surgeries. She denies any constipation or diarrhea. Her last bowel movement was yesterday and was nonbloody/nonmelanotic. She denies history of previous LA or coronary stents. She states she may have has a history of previous TIA and is on Plavix. She denies any chest pain or shortness of breath. Related Data Home Medications ?Medication ?Instructions ?Recorded ?Confirmed clopidogrel 75 mg tablet 75 mg PO DAILY 10/26/22 08/25/23 dicyclomine 10 mg capsule 10 mg PO .every 4 hours 10/26/22 08/25/23 irbesartan 150 mg tablet 150 mg PO DAILY 10/26/22 08/25/23 propranolol 60 mg capsule,24 60 mg PO Q24H 10/26/22 08/25/23 hr,extended release rosuvastatin 5 mg tablet 5 mg PO DAILY 10/26/22 08/25/23 lorazepam 0.5 mg tablet 0.5 mg PO DAILY 08/25/23 08/25/23 rifaximin 550 mg tablet (Xifaxan) 550 mg PO TID 08/25/23 08/25/23 Previous Rx's ?Medication ?Instructions ?Recorded amlodipine 10 mg tablet (Norvasc) 10 mg PO DAILY #14 tabs 10/26/22 pantoprazole 40 mg tablet,delayed 40 mg PO DAILY 6 weeks #42 tabs 08/25/23 release (Protonix) diphenhydramine HCl 25 mg capsule 25 mg PO Q8H PRN motion sickness 09/20/23 (Benadryl) #7 caps ondansetron 4 mg disintegrating 4 mg PO Q8H PRN nausea and 09/20/23 tablet vomiting and vertigo #7 tabs ondansetron 4 mg disintegrating 4 mg PO Q8H PRN nausea and 12/16/24 tablet vomiting 5 days #7 tabs Allergies Allergy/AdvReac Type Severity Reaction Status Date / Time Penicillins Allergy Severe Rash Verified 12/16/24 07:55 Review of Systems ROS Status of ROS 10 or more systems reviewed and unremarkable except as noted in history and below [facility] Social History Little interest or pleasure in doing things: not at all Feeling down, depressed, or hopeless: not at all Exam Narrative Exam Narrative: CONSTITUTIONAL: Well-appearing, answering questions and following commands appropriately SKIN: Was warm and dry. EYES: No conjunctiva pallor. No scleral icterus EARS, NOSE, THROAT: Moist oral mucosa RESPIRATORY: Clear to auscultation bilaterally, no wheezes, crackles, or stridor, no use of accessory muscles CARDIOVASCULAR: Normal rate and regular rhythm. There is no S3, S4, murmur, rub. GASTROINTESTINAL: Abdomen was soft, non-tender, and non-distended. There is no guarding or rebound tenderness MUSCULOSKELETAL: There was no lower extremity edema, erythema, or tenderness. NEUROLOGIC: Patient is awake and alert. Facies were symmetrical. Constitutional Vital Signs, click to edit/add: Last Vital Signs Temp 97.9 F 12/16/24 07:55 Pulse 71 12/16/24 09:40 Resp 18 12/16/24 09:40 BP 152/52 H 12/16/24 07:55 Pulse Ox 96 12/16/24 07:55 O2 Del Method Room Air 12/16/24 07:55 Course Vital Signs Vital signs: Vital Signs Temperature 97.9 F 12/16/24 07:55 Pulse Rate 69 12/16/24 07:55 Respiratory Rate 20 12/16/24 07:55 Blood Pressure 152/52 H 12/16/24 07:55 Pulse Oximetry 96 12/16/24 07:55 Oxygen Delivery Method Room Air 12/16/24 07:55 Temperature 97.9 F 12/16/24 07:55 Pulse Rate 71 12/16/24 09:40 Respiratory Rate 18 12/16/24 09:40 Blood Pressure 152/52 H 12/16/24 07:55 Pulse Oximetry 96 12/16/24 07:55 Oxygen Delivery Method Room Air 12/16/24 07:55 Medical Decision Making MDM Narrative Medical decision making narrative: Patient is a 84-year-old female presenting to the emergency department with nausea and vomiting beginning earlier this morning. Vital signs are within normal limits. She is afebrile and hemodynamically stable. Examination as noted above. Differential diagnose includes viral gastroenteritis, atypical presentation for ACS, gastritis, UTI, pneumonia, or other electrolyte/metabolic derangement. Patient's exam is not consistent with surgical etiologies of abdominal pain such as appendicitis, cholecystitis, or perforated viscus. IV was established and laboratory studies were obtained. She was given 1 L bolus of IV normal saline and IV Zofran for symptomatic treatment. 12 Lead EKG: Normal sinus rhythm at a rate of 67. Normal axis. No ST segment elevations. QRS, DE, and QTc interval within normal limits. Unchanged compared to prior EKG from 08/25/2023. Final impression: normal sinus rhythm without evidence of acute myocardial ischemia Laboratory studies were significant only for mild hyponatremia and hypochloremia, likely secondary to dehydration/vomiting. No other electrolyte or metabolic derangement. Troponin nonelevated. No transaminitis or hyperbilirubinemia. Mild leukocytosis, no anemia. Urinalysis unremarkable. Chest x-ray independently reviewed/interpreted by myself demonstrated no acute cardiopulmonary process. On reevaluation, patient states she feels improved and is requesting to be discharged. I do believe the patient is stable for discharge at this time. Patient's presentation is most likely consistent with viral gastroenteritis. They were instructed to follow up with her PCP for further. Return precautions were given including any new or worsening symptoms. They were given a prescription for Zofran ODT. Patient understands and agrees to the plan. FINAL IMPRESSION: #1. Acute nausea and vomiting, likely secondary to gastroenteritis #2. Acute hyponatremia, secondary to #1 DISPOSITION: Discharged home CONDITION: Fair Medical Records Medical records reviewed: Yes I reviewed the patient's medical records Lab Data Lab results reviewed: Yes I reviewed the patient's lab results Labs: Lab Results 12/16/24 12/16/24 Range/Units 08:33 10:08 WBC 11.5 H (4.0-11.0) 10^3/uL RBC 4.41 (4.20-5.40) 10^6/uL Hgb 12.1 (12.0-16.0) g/dL Hct 36.6 (36.0-48.0) % MCV 83.0 (81.0-99.0) fL MCH 27.4 (26.7-34.0) pg MCHC 33.1 (29.9-35.2) g/dL RDW 14.4 (11.0-15.0) % Plt Count 437 (150-450) 10^3/uL MPV 9.3 L (9.5-13.5) fL Neut % (Auto) 71.3 (43.0-75.0) % Lymph % (Auto) 14.9 L (20.5-60.0) % [place] % (Auto) 10.9 (1.7-12.0) % Eos % (Auto) 1.6 (0.9-7.0) % Baso % (Auto) 1.0 (0.2-2.0) % Neut # (Auto) 8.2 H (1.4-6.5) 10^3/uL Lymph # (Auto) 1.7 (1.2-3.8) 10^3/uL [place] # (Auto) 1.3 H (0.3-0.8) 10^3/uL Eos # (Auto) 0.2 (0.0-0.7) 10^3/uL Baso # (Auto) 0.1 (0.0-0.1) 10^3/uL Abs Immat Gran (auto) 0.03 (0.00-0.03) 10^3/uL Imm/Tot Granulo (auto) 0.3 (0.0-0.5) % Sodium 129 L (136-145) mmol/L Potassium 4.2 (3.5-5.1) mmol/L Chloride 93 L (98-107) mmol/L Carbon Dioxide 26.9 (21.0-32.0) mmol/L Anion Gap 13.3 BUN 10.0 (7.0-18.0) mg/dL Creatinine 0.79 (0.55-1.02) mg/dL Est GFR ( Amer) >60 (>=60 mL/min/1.73m^2) Est GFR (Non-Af Amer) >60 (>=60 mL/min/1.73m^2) BUN/Creatinine Ratio 12.7 Glucose 104 (74-106) mg/dL Calcium 9.2 (8.5-10.1) mg/dL Total Bilirubin 0.5 (0.2-1.0) mg/dL AST 21 (15-37) U/L ALT 17 (14-59) U/L Alkaline Phosphatase 110 (46-116) U/L Troponin I High Sens 6.2 (4.0-51.3) pg/mL Total Protein 8.3 H (6.4-8.2) g/dL Albumin 4.1 (3.4-5.0) g/dL Globulin 4.2 g/dL Albumin/Globulin Ratio 1.0 Urine Color Lt. yellow (YELLOW) Urine Clarity Clear (CLEAR) Urine pH 6.5 (5.0-9.0) Ur Specific [place] <=1.005 A (1.005-1.025) Urine Protein Negative (NEG/TRACE) mg/dL Urine Glucose (UA) Negative (NEGATIVE) mg/dL Urine Ketones Negative (NEGATIVE) mg/dL Urine Occult Blood Negative (NEGATIVE) Urine Nitrite Negative (NEGATIVE) Urine Bilirubin Negative (NEGATIVE) Urine Urobilinogen 0.2 (0.2-1.0) EU/dL Ur Leukocyte Esterase Negative (NEGATIVE) Urine RBC None seen (0-2) #/HPF Urine WBC None seen (NONE SEEN) #/HPF Ur Squamous Epith Cells Few A (NONE/RARE) #/LPF Urine Crystals None seen (None Seen) #/HPF Urine Bacteria Trace A (NONE SEEN) #/HPF Urine Casts None seen (NONE SEEN) #/LPF Urine Mucus None seen (NONE SEEN) Ur Culture Indicated? No Imaging Data Chest x-ray: Attestation: I personally reviewed and interpreted this imaging study as follows: Radiologist's impression: ITS Impressions Chest X-Ray 12/16/24 08:27 IMPRESSION: No acute cardiopulmonary pathology. Chronic findings are redemonstrated as above. Impression dictated by: Aditya Styles M.D. 12/16/2024 9:11 AM Dictation Location: [place] [address] Electronically authenticated by: [id number] Y Date: 12/16/2024 09:11 ECG Data Attestation: I personally reviewed and interpreted this ECG as follows: Discharge Plan Discharge Chief Complaint: Nausea/Vomiting/Diarrhea Clinical Impression: Gastroenteritis Patient Disposition: Home, Self-Care Time of Disposition Decision: 10:29 Condition: Good Mode of Transportation: Private Vehicle Prescriptions / Home Meds: New ondansetron 4 mg tablet,disintegrating 4 mg PO Q8H PRN (Reason: nausea and vomiting) 5 Days Qty: 7 0RF No Action clopidogrel 75 mg tablet 75 mg PO DAILY dicyclomine 10 mg capsule 10 mg PO .every 4 hours irbesartan 150 mg tablet 150 mg PO DAILY propranolol 60 mg capsule,extended release 24 hr 60 mg PO Q24H rosuvastatin 5 mg tablet 5 mg PO DAILY amlodipine [Norvasc] 10 mg tablet 10 mg PO DAILY Qty: 14 0RF ondansetron 4 mg tablet,disintegrating 4 mg PO Q8H PRN (Reason: nausea and vomiting and vertigo ) Qty: 7 0RF diphenhydramine HCl [Benadryl] 25 mg capsule 25 mg PO Q8H PRN (Reason: motion sickness) Qty: 7 0RF Xifaxan 550 mg tablet 550 mg PO TID lorazepam 0.5 mg tablet 0.5 mg PO DAILY pantoprazole [Protonix] 40 mg tablet,delayed release (DR/EC) 40 mg PO DAILY 42 Days Qty: 42 0RF Print Language: Portuguese Instructions: Acute Nausea and Vomiting (ED) Referrals: LICHA DEAN [Primary Care Provider, Family Practice] - 1 week Discharge Date/Time: 12/16/24 10:38
[2024-12-16 08:46] LABS: Hematocrit 36.6 % (36.0-48.0); Hemoglobin 12.1 g/dL (12.0-16.0); Immature Granulocytes Abs Auto 0.03 10^3/uL (0.00-0.03); Immature Granulocytes Pct Auto 0.3 % (0.0-0.5); Lymphocytes Absolute Auto 1.7 10^3/uL (1.2-3.8); Mean Corpuscular HGB Conc 33.1 g/dL (29.9-35.2); Mean Corpuscular Hemoglobin 27.4 pg (26.7-34.0); Mean Corpuscular Volume 83.0 fL (81.0-99.0); Platelet Count 437 10^3/uL (150-450); Red Blood Count 4.41 10^6/uL (4.20-5.40); White Blood Count 11.5 10^3/uL (4.0-11.0)
[2024-12-16] MEDS: 0.9 % SODIUM CHLORIDE 1,000 ML 1000 ML IV (08:52)
[2024-12-16 09:05] LABS: Alanine Aminotransferase 17 U/L (14-59); Albumin Globulin Ratio 1.0; Albumin Level 4.1 g/dL (3.4-5.0); Alkaline Phosphatase 110 U/L (46-116); Anion Gap 13.3; Aspartate Amino Transferase 21 U/L (15-37); Blood Urea Nitrogen 10.0 mg/dL (7.0-18.0); Calcium 9.2 mg/dL (8.5-10.1); Carbon Dioxide 26.9 mmol/L (21.0-32.0); Chloride 93 mmol/L (98-107); Estimated GFR (African America >60 (>=60 mL/min/1.73m^2); Estimated GFR (Non-African Ame >60 (>=60 mL/min/1.73m^2); Globulin 4.2 g/dL; Glucose 104 mg/dL (74-106); Potassium 4.2 mmol/L (3.5-5.1); Sodium 129 mmol/L (136-145); Total Protein 8.3 g/dL (6.4-8.2)
[2024-12-16 10:16] LABS: Glucose Urine UA NEGATIVE (NEGATIVE)
[2024-12-16 10:29] LABS: Cast Seen? NONE SEEN #/LPF (NONE SEEN); Crystals Seen? None Seen #/HPF (None Seen); Urine Culture Indicated NO
== END 2024-12-16 10:38 | disposition home or self-care (01) ==
PROVIDERS: Emergency Provider Student in an Organized Health Care Education/Training Program; PCP Family Medicine
DX: K52.9 Noninfective gastroenteritis and colitis, unspecified (principal); Z86.73 Personal history of transient ischemic attack (TIA), and cerebral infarction without residual deficits; Z79.02 Long term (current) use of antithrombotics/antiplatelets; E87.1 Hypo-osmolality and hyponatremia
CPT/HCPCS: 36415; 71046; 80053; 81001; 84484; 85025; 93005; 96361; 96374; 99285; J2405

== ENCOUNTER 2025-01-01 11:46 | Outpatient (OUT) | payer MEDICARE, OTHER, SELFPAY ==
--- NOTE | 2025-01-01 11:55 | XR_ITS ---
The [place] [id number] Patient Name: RANJAN LAMB MRN: [id number] date: 1940 Sex: F Assigned Patient Location: [facility] Current Patient Location: [facility] Accession/Order Number: [id number] Exam Date: 01/01/2025 12:00 Report Date: 01/01/2025 12:34 At the request of: LICHA DEAN Procedure: XR wrist LT 2V CLINICAL DATA: Patient fell down and pain at the left hand and wrist. LEFT HAND - 2 views COMPARISON: None AP and lateral views were obtained. There is osteopenia. There is no acute fracture or dislocation. There is narrowing of all of the distal intercarpal and proximal fifth intercarpal joints where there is also mild marginal spurring. Slight soft tissue swelling is seen at the proximal aspect of the third and fourth fingers. XR/XR hand LT 2V IMPRESSION: OSTEOPENIA AND DEGENERATIVE CHANGES. NO ACUTE BONY INJURY. LEFT WRIST - 2 views COMPARISON: None AP and lateral views were obtained. There is osteopenia. Chronic-appearing bony ossicles are visualized adjacent to the tips of the radial ulnar styloids. No acute fractures or dislocation are noted. There is marginal spurring at the lateral intercarpal and first carpal metacarpal joints where there is also slight joint space narrowing. There are scattered carpal cystic changes. Dorsal soft tissue swelling is present. IMPRESSION: OSTEOPENIA AND DEGENERATIVE CHANGES. NO ACUTE BONY INJURY. Impression dictated by: Tiffanie Scott M.D. 01/01/2025 12:34 PM Dictation Location: [place] Electronically authenticated by: [id number] Y Date: 01/01/2025 12:34
--- NOTE | 2025-01-01 11:55 | XR_ITS ---
The [place] [id number] Patient Name: RANJAN LAMB MRN: [id number] date: 1940 Sex: F Assigned Patient Location: [facility] Current Patient Location: [facility] Accession/Order Number: [id number] Exam Date: 01/01/2025 12:00 Report Date: 01/01/2025 12:34 At the request of: LICHA DEAN Procedure: XR wrist LT 2V CLINICAL DATA: Patient fell down and pain at the left hand and wrist. LEFT HAND - 2 views COMPARISON: None AP and lateral views were obtained. There is osteopenia. There is no acute fracture or dislocation. There is narrowing of all of the distal intercarpal and proximal fifth intercarpal joints where there is also mild marginal spurring. Slight soft tissue swelling is seen at the proximal aspect of the third and fourth fingers. XR/XR wrist LT 2V IMPRESSION: OSTEOPENIA AND DEGENERATIVE CHANGES. NO ACUTE BONY INJURY. LEFT WRIST - 2 views COMPARISON: None AP and lateral views were obtained. There is osteopenia. Chronic-appearing bony ossicles are visualized adjacent to the tips of the radial ulnar styloids. No acute fractures or dislocation are noted. There is marginal spurring at the lateral intercarpal and first carpal metacarpal joints where there is also slight joint space narrowing. There are scattered carpal cystic changes. Dorsal soft tissue swelling is present. IMPRESSION: OSTEOPENIA AND DEGENERATIVE CHANGES. NO ACUTE BONY INJURY. Impression dictated by: Tiffanie Scott M.D. 01/01/2025 12:34 PM Dictation Location: [place] Electronically authenticated by: [id number] Y Date: 01/01/2025 12:34
--- OUTSIDE RECORDS SUMMARY | 2025-01-01 11:55 | XMS_ITS | CCD ---
Author Organization [facility] CliniSyky Care Team Providers Care Cane Burner Name Role Phone El Au Unavailable DO Brad Dean Primary Care Provider [phone] MD lE Au Attending Provider [phone] ROE, DR Niya Dobbins Attending Unavailable ROE, [...] Provider Ly, DO Emma Núñez Attending Provider Ly, Emma L Attending Unavailable Ly, Emma L Admitting Unavailable House, Brad Primary Care Unavailable Ly, Emma L Attending Unavailable Ly, Emma Núñez Admitting Unavailable House, Brad Primary Care Unavailable Ly, Emma L Attending Unavailable House, Brad Primary Care Unavailable Ly, Emma L Admitting Unavailable Ly, Emma L Attending Unavailable House, Brad Primary Care Unavailable Ly, Emma L Admitting Unavailable Ly, Emma L Attending Unavailable Ly, Emma L Admitting Unavailable Giovanny, Brad Primary Care Unavailable Giovanny, DO Salinas Primary Care Provider [phone] Ly, DO Emma Núñez Attending Provider [phone] BRAD DEAN Primary Care Unavailable HOUSE, DO SALINAS P Attending Unavailable HOUSE, BRAD P Primary Care Unavailable HOUSE, DO SALINAS P Attending Unavailable HOUSE, BRAD P Primary Care Unavailable HOUSE, DO BRAD P Attending Unavailable HOUSE, BRAD P Primary Care Unavailable HOUSE, DO BRAD P Attending Unavailable HOUSE, BRAD P Primary Care Unavailable DO BRAD DEAN Attending Unavailable Allergies Allergy Classification Reported Allergen(s) Allergy Type Date of Onset Reaction(s) Facility (16 sources) Iodine; Translations: [iodine] Drug Allergy 09-03-2018 [facility] (9 sources) Penicillin G Drug Allergy 09-27-2023 [facility] (10 sources) Penicillins; Translations: [Penicillins] Allergy to substance 07-14-2014 [facility] (9 sources) Povidone-Iodine; Translations: [povidone-iodine ] Drug Allergy 09-03-2018 [facility] (9 sources) soap; Translations: [soap] Allergy to substance 09-03-2018 [facility] (2 sources) Povidone-Iodine; Translations: [Betadine] Drug Allergy 07-14-2014 [facility] Repository (1 source) Penicillin Drug Allergy 09-27-2023 [facility] Repository (1 source) Penicillin; Translations: [penicillin] Drug Allergy [facility] Repository Medications Current Medications Medication [...] 1 tablet by mouth once daily Vitamin D02-Akbme Acid 500-400 mcg Tablet Discontinued 1 TAB [...] with vomiting, unspecified] Onset: 4 09-27-2023 Episodic Noninfectious gastroenteritis (1 source) Noninfective gastroenteritis and colitis, unspecified; Translations: [Noninfective gastroenteritis and colitis, unspecified] Onset: 5 Episodic Other disorders of stomach and duodenum [...] and visceral atherosclerosis (5 sources) Atherosclerosis of [place] arteries of extremities with intermittent claudication, bilateral legs; Translations: [Atherosclerosis of [place] arteries of extremities with intermittent claudication, unspecified extremity] Onset: 2 Chronic Residual codes; unclassified (7 sources) Body mass index 20-24 - normal; Translations: [Body mass index (BMI) 21.0-21.9, adult] Episodic Past or Other Problems Problem Classification Problem Date Documented Da te Episodic/Chronic Unclassified (1 source) Suspected COVID-19 virus infection Z20.822 Results Test Name Value Interpretation Reference Range Facility Outside Recordson 12-17-2024 Outside Records [id number] [facility] [id number] 946#1.00[facility] Consultation/Specialist Note on 07-24-2024 Consultation/Specialis t Note .[id number] 703[facility]1.[facility] Controlled Substances Agreem entson 03-10-2024 Controlled Substances Agreements [id number] [facility] on 01-31-2024 Consultation/Specialis t Note [id number] 366#[facility] Complete Blood Count Auto Di ffOrdered By: Emma Rodas on 01-22-2024 Basophils (Bld) [#/Vol] 0.1 10*3/uL Normal 0.0-0.2 [facility] Comment on above: Result Comment: PERF ORMED BY: [place] [address] PATHOLOGIST DRY CAN TENDER HOLLIE BONNER M.D. Performed By: #### C BC #### [address] Basophils/100 WBC (Bld) 1.1 % Normal . [facility] Comment on above: Performed By: #### C BC #### [address] Eosinophils (Bld) [#/Vol] 0.2 10*3/uL Normal 0.0-0.45 [facility] Comment on above: Performed By: #### C BC #### [address] Eosinophils/100 WBC (Bld) 2.6 % Normal . [facility] Comment on above: Performed By: #### C BC #### [address] Erythrocyte distribution width (RBC) [Ratio] 16.5 % High 11.9-15.3 [facility] Comment on above: Performed By: #### C BC #### [address] Hematocrit (Bld) [Volume fraction] 35.5 % Normal 34.0-46.4 [facility] Comment on above: Performed By: #### C BC #### [address] Hemoglobin (Bld) [Mass/Vol] 11.8 g/dL Normal 11.8-15.4 [facility] Comment on above: Performed By: #### C BC #### [facility] [address] [place] [address] [place] Lymphocytes (Bld) [#/Vol] 1.7 10*3/uL Normal 1.00-4.8 [facility] Comment on above: Performed By: #### C BC #### [facility] [address] Lymphocytes/100 WBC (Bld) 21.0 % Normal . [facility] Comment on above: Performed By: #### C BC #### [facility] [address] MCH (RBC) [Entitic mass] 28.3 pg Normal 24.7-34.3 [facility] Comment on above: Performed By: #### C BC #### [address] MCV (RBC) [Entitic vol] 85.1 fL Normal 80-100 [facility] Comment on above: Performed By: #### C BC #### [place] [address] [place] Monocytes (Bld) [#/Vol] 1.4 10*3/uL High 0.0-0.8 [facility] Comment on above: Performed By: #### C BC #### [address] Monocytes/100 WBC (Bld) 17.5 % Normal . [facility] Comment on above: Performed By: #### C BC #### [place] [address] [place] Neutrophils (Bld) [#/Vol] 4.6 10*3/uL Normal 1.8-7.7 [facility] Comment on above: Performed By: #### C BC #### [place] [address] [place] Neutrophils/100 WBC (Bld) 57.8 % Normal . [facility] Comment on above: Performed By: #### C BC #### [address] [place] [address] [place] Platelet mean volume (Bld) [Entitic vol] 8.8 fL Normal 6.3-10.7 [facility] Comment on above: Performed By: #### C BC #### [facility] [address] Platelets (Bld) [#/Vol] 324 10*3/uL Normal 150-450 [facility] Comment on above: Performed By: #### C BC #### [address] RBC (Bld) [#/Vol] 4.18 10*6/uL Normal 3.60-5.00 [facility] Comment on above: Performed By: #### C BC #### [address] WBC (Bld) [#/Vol] 8.0 10*3/uL Normal 3.8-11.6 [facility] Comment on above: Performed By: #### C BC #### [address] Complete Blood Count Auto Di ffon 01-22-2024 Mean Corpuscular HGB Conc 33.2 g/dL Normal 32.0-35.0 [facility] Comment on above: Performed By: #### C BC #### [address] NRBC% 0.0 /100{WBC} Normal 0-0.[address] [facility] Comment on above: Performed By: #### C BC #### [address] Leukocytes [#/volume] correc [place] for nucleated erythrocytes in Blood by Automated counOrdered By: Emma Rodas on 01-22-2024 WBC corrected for nucl RBC Auto (Bld) [#/Vol] 8.0 10*3/uL 3.8-11.6 [facility] MCHC Auto (RBC) [Mass/Vol]Or dered By: Emma Rodas on 01-22-2024 MCHC (RBC) [Mass/Vol] 33.2 g/dL 32.0-35.0 [facility] Nucleated erythrocytes [Pres ence] in Blood by Automated countOrdered By: Emma Rodas on 01-22-2024 Nucleated RBC Auto Ql (Bld) 0.0 /100{WBC} 0-0.5 [facility] Clostridioides difficile tox in B tcdB gene [Presence] in Stool by MARIJA with probe deteOrdered By: Emma Rodas on 12-13-2023 C. difficile toxin B tcdB gene MARIJA+probe Ql (Stl) Negative Negative [facility] Comment on above: Testing performed by RT-PCR Clostridium Difficileon 11-15 Clostridium Difficile Negative Normal Negative [facility] Comment on above: Result Comment: Test ing performed by RT-PCR PERFORMED BY: [place] [address] PATHOLOGIST DRY CAN TENDER HOLLIE BONNER M.D. Performed By: #### G I PROFILE, STL #### [facility] , #### CDT #### [address] Cryptosporidium sp DNA [Pres ence] in Stool by MARIJA with non-probe detectionOrdered By: Emma Rodas on 12-13-2023 Cryptosporidium sp DNA MARIJA+non-probe Ql (Stl) Not detected Not Detected [facility] Detection in stool of any of Campylobacter coli, Campylobacter jejuni, and CampylobacOrdered By: Emma Rodas on 12-13-2023 C. coli+jejuni+upsaliensi s DNA MARIJA+non-probe Ql (Stl) Not detected Not Detected [facility] Detection in stool of any of Vibrio cholerae, Vibrio parahaemolyticus, and Vibrio vulOrdered By: Emma Rodas on 12-13-2023 V. cholerae+parahaemolyti cus+vulnificus DNA MARIJA+non-probe Ql (Stl) Not detected Not Detected [facility] Detection in stool of either or both Clostridium difficile toxin A and B genes by tarOrdered By: Emma Rodas on 12-13-2023 C. difficile toxin A+B tcdA+tcdB genes MARIJA+non-probe Ql (Stl) Not detected Not Detected [facility] Detection in stool of either or both Salmonella enterica and Salmonella bongori DNA bOrdered By: Emma Rodas on 12-13-2023 S. enterica+bongori DNA MARIJA+non-probe Ql (Stl) Not detected Not Detected [facility] Detection in stool of either or both enteroaggregative Escherichia coli Tejinder plasmid aOrdered By: Emma Rodas on 12-13-2023 E. coli enteroaggregative Tejinder plasmid aggR+aatA genes MARIJA+non-probe Ql (Stl) Not detected Not Detected [facility] Escherichia coli O157 DNA [P resence] in Stool by MARIJA with non-probe detectionOrdered By: Emma Rodas on 12-13-2023 E. coli O157 DNA MARIJA+non-probe Ql (Stl) Not applicable Not Detected [facility] Escherichia coli Stx1 and St x2 toxin stx1+stx2 genes [Presence] in Stool by MARIJA withOrdered By: Emma Rodas on 12-13-2023 E. coli stx1+stx2 genes MARIJA+non-probe Ql (Stl) Not detected Not Detected [facility] Escherichia coli enteropatho genic eae gene [Presence] in Stool by MARIJA with non-probeOrdered By: Emma Rodas on 12-13-2023 E. coli enteropathogenic eae gene MARIJA+non-probe Ql (Stl) Not detected Not Detected [facility] Escherichia coli enterotoxig enic ltA+st1a+st1b genes [Presence] in Stool by MARIJA withOrdered By: Emma Rodas on 12-13-2023 E. coli enterotoxigenic ltA+st1a+st1b genes MARIJA+non-probe Ql (Stl) Not detected Not Detected [facility] Gastrointestinal Profile, PC Bruno 12-13-2023 Adenovirus F 40/41 Not detected Normal Not Detected [facility] Comment on above: Performed By: #### G I PROFILE, STL #### [facility] , #### CDT #### [address] Astrovirus Not detected Normal Not Detected [facility] Comment on above: Performed By: #### G I PROFILE, STL #### [facility] , #### CDT #### [facility] [address] [place] [address] C Difficile Toxin A/B Not detected Normal Not Detected [facility] Comment on above: Performed By: #### G I PROFILE, STL #### [facility] , #### CDT #### [facility] [address] [place] [address] Campylobacter Not detected Normal Not Detected [facility] Comment on above: Performed By: #### G I PROFILE, STL #### [facility] , #### CDT #### [facility] [address] [place] [address] Cryptosporidium Not detected Normal Not Detected [facility] Comment on above: Performed By: #### G I PROFILE, STL #### [facility] , #### CDT #### [facility] [address] [place] [address] Cyclospora cayetanensis Not detected Normal Not Detected [facility] Comment on above: Performed By: #### G I PROFILE, STL #### [facility] , #### CDT #### [facility] [address] [place] [address] E coli O157 Not applicable Normal Not Detected [facility] Comment on above: Performed By: #### G I PROFILE, STL #### [facility] , #### CDT #### [facility] [address] [place] [address] Entamoeba histolytica Not detected Normal Not Detected [facility] Comment on above: Performed By: #### G I PROFILE, STL #### [facility] , #### CDT #### [facility] [address] [place] [address] Enteroaggregative E coli Not detected Normal Not Detected [facility] Comment on above: Performed By: #### G I PROFILE, STL #### [facility] , #### CDT #### [facility] [address] [place] [address] Enteropathogenic E coli Not detected Normal Not Detected [facility] Comment on above: Performed By: #### G I PROFILE, STL #### [facility] , #### CDT #### [address] Enterotoxigenic E coli Not detected Normal Not Detecte d [facility] Comment on above: Performed By: #### G I PROFILE, STL #### [facility] , #### CDT #### [facility] [address] [place] [address] Giardia lamblia Not detected Normal Not Detected [facility] Comment on above: Performed By: #### G I PROFILE, STL #### [facility] , #### CDT #### [facility] [address] [place] [address] [place] Norovirus GI/GII Not detected Normal Not Detected [facility] Comment on above: Performed By: #### G I PROFILE, STL #### [facility] , #### CDT #### [facility] [address] [place] [address] [place] Plesiomonas shigelloides Not detected Normal Not Detected [facility] Comment on above: Performed By: #### G I PROFILE, STL #### [facility] , #### CDT #### [facility] [address] [place] [address] [place] Rotavirus A Not detected Normal Not Detected [facility] Comment on above: Performed By: #### G I PROFILE, STL #### [facility] , #### CDT #### [facility] [address] [place] [address] Salmonella Not detected Normal Not Detected [facility] Comment on above: Performed By: #### G I PROFILE, STL #### [facility] , #### CDT #### [address] Sapovirus Not detected Normal Not Detected [facility] Comment on above: Result Comment: Perf ormed at: - [facility] [address] [id number] Iron Worker Apprentice: Dennise Villalobos MD, Phone: [phone] PERFORMED BY: [place] [address] PATHOLOGIST DRY CAN TENDER HOLLIE BONNER M.D. Performed By: #### G I PROFILE, STL #### [facility] , #### CDT #### [address] Krqyy-dahps-ftuuhofky E coli Not detected Normal Not Detected [facility] Comment on above: Performed By: #### G I PROFILE, STL #### [facility] , #### CDT #### [address] Shigella/Enteroinvasiv e E coli Not detected Normal Not Detected [facility] Comment on above: Performed By: #### G I PROFILE, STL #### [facility] , #### CDT #### [address] Vibrio Not detected Normal Not Detected [facility] Comment on above: Performed By: #### G I PROFILE, STL #### [facility] , #### CDT #### [address] Vibrio cholerae Not detected Normal Not Detected [facility] Comment on above: Performed By: #### G I PROFILE, STL #### [facility] , #### CDT #### [facility] [address] Yersinia enterocolitica Not detected Normal Not Detected [facility] Comment on above: Performed By: #### G I PROFILE, STL #### [facility] , #### CDT #### [facility] [address] No Panel InformationOrdered By: Emma Rodas on 12-13-2023 Adenovirus Types 40, 41 Not detected Not Detected [facility] Giardia lamblia Interpretation Not detected Not Detected [facility] Stool Astrovirus (PCR) Not detected Not Detecte d [facility] Stool Cyclospora cayetanensis (PCR) Not detected Not Detected [facility] Stool Entamoeba (PCR) Not detected Not Detected [facility] Stool Norovirus GI/GII PCR Not detected Not Detected [facility] Stool Rotavirus (PCR) Not detected Not Detected [facility] Stool Sapovirus (PCR) Not detected Not Detected [facility] Comment on above: Performed at: [address] [id number] Director: Dennise Villalobos MD, Phone: [phone] Shigella species+EIEC invasi on plasmid antigen H ipaH gene [Presence] in Stool by NAAOrdered By: Emma Rodas on 12-13-2023 Shigella species+EIEC invasion plasmid antigen H ipaH gene MARIJA+non-probe Ql (Stl) Not detected Not Detected [facility] Stool Plesiomonas shigelloid es DNA detection by non-probe and target amplification meOrdered By: Emma Rodas on 12-13-2023 P. shigelloides DNA MARIJA+non-probe Ql (Stl) Not detected Not Detected [facility] Vibrio cholerae DNA [Presenc e] in Stool by MARIJA with non-probe detectionOrdered By: Emma Rodas on 12-13-2023 V. cholerae DNA MARIJA+non-probe Ql (Stl) Not detected Not Detected [facility] Yersinia enterocolitica DNA [Presence] in Stool by MARIJA with non-probe detectionOrdered By: Emma Rodas on 12-13-2023 Y. enterocolitica DNA MARIJA+non-probe Ql (Stl) Not detected Not Detected [facility] XR KUBon 12-04-2023 XR KUB [facility] Main [address] [address] XRay Report Signed Patient: Yadira Lamb MR#: [id number] : 1940 Acct:[id number] Age/Sex: 83 / F ADM Date: 12/04/23 Loc: XD Room: Type: [facility] Attending Dr: Emma Rodas DO [...] Galvan Jr., D.OLazaro12/04/2023 2:48 PM Dictation Location: [place] [address] Transcribed By: [facility] 12/04/23 1448 Dictated By: Esequiel Galvan Jr, DO 12/04/23 1448 Signed By: 12/04/23 1448 Normal [facility] 11-07-2023 L Specimen: [id number] Received: 11/07/23 Status: GONZÁLEZ Hale Num: [id number] Spec Type: Surgical Subm Dr: Emma Rodas DO Tissues: A Small Intestine - Biopsy/Polyp (SMALL BOWEL BX) B GASTRIC FOR HP (GASTRIC HP) Procedures: HE/4, Gross/Micro L4/2, H PYLORI, IHC First AB Age/ Patient Sex Location Account Attending Physician Yadira Lamb 83/F [id number] Emma Rodas DO SPEC NUM: [id number] RECD: 11/07/23 STATUS: GONZÁLEZ HALE NUM: [id number] AUTUMN: 11/07/23- SUBM DR: Emma Rodas DO ENTERED: 11/07/23 [facility] DR: SPEC TYPE: Surgical DEPT: S ORDERED: [...] 0.1 cm, entirely submitted in B1. Specimen: [id number] Received: 11/07/23 Status: GONZÁLEZ aHle Num: [id number] Spec Type: Surgical Subm Dr: Emma Rodas DO Tissues: A Small Intestine - Biopsy/Polyp (SMALL BOWEL BX) B GASTRIC FOR HP (GASTRIC HP) Procedures: HE/4, Gross/Micro L4/2, H PYLORI, IHC First AB Patient: Yadira Lamb Cindi [id number] (Continued) Specimen: [id number] Received: 11/07/23 (Continued) Signed (signatur e on file) Brad Gamboa Jr., MD 11/09/23908 Specimen: [id number] Received: 11/07/23 Status: GONZÁLEZ Hale Num: [id number] Spec Type: Surgical Subm Dr: Emma Rodas DO Tissues: A Small Intestine - Biopsy/Polyp (SMALL BOWEL BX) B GASTRIC FOR HP (GASTRIC HP) Procedures: HE/4, Gross/Micro L4/2, H PYLORI, IHC First AB Patient: Demetri Lambsourav Puente [id number] (Continued) Specimen: [id number] Received: 11/07/23 (Continued) Microscopic Description Immunoperoxidase stain performed on formalin fixed and paraffin-embedded tissue sections (block B1) for Helicobacter pylori organisms is negative with a satisfactory control. CPT Codes 55223 x 2,, 18762 Specimen: [id number] Received: 11/07/23 Status: GONZÁLEZ Hale Num: [id number] Spec Type: Surgical Subm Dr: Emma Rodas DO Tissues: A Small Intestine - Biopsy/Polyp (SMALL BOWEL BX) B GASTRIC FOR HP (GASTRIC HP) Procedures: HE/4, Gross/Micro L4/2, H PYLORI, IHC First AB Patient: Yadira Lamb [id number] (Continued) Signed (signatur e on file) Brad Gamboa Jr., MD 11/09/23 0909 Normal [facility] [place] esophaguson 10-19-2023 [place] esophagus [facility] [address] Fluoroscopy Report Signed Patient: Yadira Lamb MR#: [id number] : 1940 Acct:[id number] Age/Sex: 83 / F ADM Date: 10/19/23 Loc: Room: Type: [facility] Attending Dr: Emma Rodas DO [...] RECOMMENDED. Impression dictated by: Esequiel Galvan Jr., D.OLazaro10/19/2023 10:55 AM Dictation Location: [place] [address] Transcribed By: [facility] 10/19/23 1055 Dictated By: Esequiel Galvan Jr, DO 10/19/23 1052 Signed By: 10/19/23 1055 Normal [facility] COVID Quick Testingon 2022 Result Negative [employer] Other CBC AUTO DIFFon 05-09-2022 BASO # 0.1 103/ul Normal 0.0-0.1 [facility] Comment on above: Performed By: #### C BC #### [facility] [address] [place] [address] [address] Sadaf Canela Basophils/100 WBC (Bld) 0.8 % Normal 0.2-2.0 [facility] Comment on above: Performed By: #### C BC #### [facility] [address] [place] [address] [address] Sadaf Canela EO # 0.2 103/ul Normal 0.0-0.7 [facility] Comment on above: Performed By: #### C BC #### [facility] [address] [place] [address] Dr. Sadaf Canela Eosinophils/100 WBC (Bld) 2.1 % Normal 0.9-7.0 [facility] Comment on above: Performed By: #### C BC #### [facility] [address] [place] [address] [address] Sadaf Canela Erythrocyte distribution width (RBC) [Ratio] 14.6 % Normal 11.0-15.0 [facility] Comment on above: Performed By: #### C BC #### [facility] [address] [place] [address] Dr. Sadaf Canela Hematocrit (Bld) [Volume fraction] 40.4 % Normal 36.0-48.0 [facility] Comment on above: Performed By: #### C BC #### [facility] [address] [place] [address] [address] Sadaf Canela Hemoglobin (Bld) [Mass/Vol] 12.6 g/dL Normal 12.0-16.0 [facility] Comment on above: Performed By: #### C BC #### [facility] [address] [place] [address] [address] Sadaf Canela IG # 0.01 10e3/ul Normal 0.00-0.03 [facility] Comment on above: Performed By: #### C BC #### [facility] [address] [place] [address] Dr. Sadaf Canela IG % 0.1 % Normal 0.0-0.5 [facility] Comment on above: Performed By: #### C BC #### [facility] [address] [place] [address] Dr. Sadaf Canela LYMPH # 1.6 103/ul Normal 1.2-3.8 [facility] Comment on above: Performed By: #### C BC #### [facility] [address] [place] [address] Dr. Sadaf Canela Lymphocytes/100 WBC (Bld) 22.2 % Normal 20.5-60.0 [facility] Comment on above: Performed By: #### C BC #### [facility] [address] [place] [address] Dr. Sadaf Canela MANUAL DIFF REQ NO Normal [facility] Comment on above: Performed By: #### C BC #### [facility] [address] [place] [address] Dr. Sadaf Canela MCH (RBC) [Entitic mass] 27.6 pg Normal 26.7-34.0 [facility] Comment on above: Performed By: #### C BC #### [facility] [address] [place] [address] Dr. Sadaf Canela MCHC (RBC) [Mass/Vol] 31.2 g/dL Normal 29.9-35.2 [facility] Comment on above: Performed By: #### C BC #### [facility] [address] [place] [address] Dr. Sadaf Canela MCV (RBC) [Entitic vol] 88.4 fL Normal 81.0-99.0 [facility] Comment on above: Performed By: #### C BC #### [facility] [address] [place] [address] Dr. Sadaf Canela MONO # 0.9 103/ul Critically high 0.3-0.8 [facility] Comment on above: Performed By: #### C BC #### [facility] [address] [place] [address] Dr. Sadaf Canela Monocytes/100 WBC (Bld) 12.4 % Critically high 1.7-12.0 [facility] Comment on above: Performed By: #### C BC #### [facility] [address] [place] [address] Dr. Sadaf Canela NEUT # 4.5 103/ul Normal 1.4-6.5 [facility] Comment on above: Performed By: #### C BC #### [facility] [address] [place] [address] Dr. Sadaf Canela Neutrophils/100 WBC (Bld) 62.4 % Normal 43.0-75.0 [facility] Comment on above: Performed By: #### C BC #### [facility] [address] [place] [address] Dr. Sadaf Canela Platelet mean volume (Bld) [Entitic vol] 10.2 fL Normal 9.5-13.5 [facility] Comment on above: Performed By: #### C BC #### [facility] [address] [place] [address] Dr. Sadaf Canela PLT 351 103/ul Normal 150-450 [facility] Comment on above: Performed By: #### C BC #### [facility] [address] [place] [address] Dr. Sadaf Canela RBC 4.57 106/ul Normal 4.20-5.40 [facility] Comment on above: Performed By: #### C BC #### [facility] [address] [place] [address] Dr. Sadaf Canela WBC 7.2 103/ul Normal 4.0-11.0 [facility] Comment on above: Performed By: #### C BC #### [facility] [address] [place] [address] Dr. Sadaf Canela FERRITINon 05-09-2022 Ferritin [Mass/Vol] 19.0 ng/mL Normal 8.0-252.0 [facility] Comment on above: Performed By: #### F ERR #### [facility] [address] [address] [address] Sadaf Canela Blood hemoglobin measurement (mass/volume)Ordered By: El Au on 12-20-2021 Hemoglobin (Bld) [Mass/Vol] 13.4 g/dL 11.8-15.4 [facility] Hematocrit Auto (Bld) [Volum e fraction]Ordered By: El Au on 12-20-2021 Hematocrit (Bld) [Volume fraction] 41.1 % 34.0-46.4 [facility] Hemoglobin and Hematocriton 12-20-2021 Hematocrit (Bld) [Volume fraction] 41.100 % Normal 34.0-46.4 % [facility] Other Hemoglobin (Bld) [Mass/Vol] 13.356299 g/dL Normal 11.8-15.4 g/dL [facility] Other CREATININEon 08-30-2021 Creatinine [Mass/Vol] 0.82 mg/dL Normal 0.55-1.02 [facility] Comment on above: Performed By: #### C HANNAH #### [facility] [address] [address] [address] Sadaf Canela EGFR-AF CHINESE >60 Normal >=60 [facility] Comment on above: Performed By: #### C HANNAH #### [facility] [address] [place] [address] Dr. Sadaf Canela EGFR-NON AF CHINESE >60 Normal >=60 [facility] Comment on above: Performed By: #### C HANNAH #### [facility] [address] [place] [address] Dr. Sadaf Canela CTA ABD MALENA WWO [...] by: JULIA ECHEVARRIA Date: 2021-08-30 15:07 Normal [facility] Complete Blood Count Auto Di ffon 06-16-2021 Basophils (Bld) [#/Vol] 0.1 10*3/uL 0.0-0.2 [facility] Other Basophils/100 WBC (Bld) 1.3 % . [facility] Other Eosinophils (Bld) [#/Vol] 0.2 10*3/uL 0.0-0.45 [facility] Other Eosinophils/100 WBC (Bld) 1.7 % . [facility] Other Erythrocyte distribution width (RBC) [Ratio] 14.5 % 11.9-15.3 [facility] Other Hematocrit (Bld) [Volume fraction] 41.8 % 34.0-46.4 [facility] Other Hemoglobin (Bld) [Mass/Vol] 13.6 g/dL 11.8-15.4 [facility] Other Lymphocytes (Bld) [#/Vol] 2.1 10*3/uL 1.00-4.8 [facility] Other Lymphocytes/100 WBC (Bld) 23.5 % .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 [facility] EP[facility] DATE CREATED AUTHOR AUTHOR'S ORGANIZ ATION 01/24/2024 [facility] DATE CREATED AUTHOR AUTHOR'S ORGANIZ ATION 12/18/2024 [facility] FOR RECORDS PERTAINING TO PATIENTS WHO [...] BE BASED ON THE PRIMARY CLINICAL RECORDS. [facility]. provides no warranty or guarantee of the accuracy or completeness of information in this document.
== END 2025-01-01 11:47 | disposition home or self-care (01) ==
LOC: RAD 11:50
PROVIDERS: PCP Family Medicine; Visit Provider Family Medicine
DX: M85.88 Other specified disorders of bone density and structure, other site (principal); W19.XXXA Unspecified fall, initial encounter
CPT/HCPCS: 73100; 73120